=== PATIENT | female | born 1970 | race American Indian/Alaskan Native ===

== ENCOUNTER 2017-03-14 09:40 | Emergency (ER) | payer MEDICARE, OTHER ==
[2017-03-14 09:43] VITALS: BMI 46.3
[2017-03-14 09:44] VITALS: TEMP 97.8
--- NOTE | 2017-03-14 10:04 | C.PDOC ---
History Of Present Illness 46 y/o F c PMHx asthma, migraines, epilepsy, chronic L knee pain on morphine at home p/w back pain x 2 days. Pain is L lower back, sharp, severe, worse with movement or palpation, shoots down L leg with paresthesias. Denies history of sciatica in the past but has known herniated discs secondary to injury years ago. Denies recent injury or trauma, fever, procedures, recent surgery, urinary retention, urinary incontinence, bowel incontinence, motor weakness, or loss of sensation. Time Seen by Provider: 03/14/17 10:00 Chief Complaint (Nursing): Back Pain History Per: Patient History/Exam Limitations: no limitations Onset/Duration Of Symptoms: Days (2) Current Symptoms Are (Timing): Still Present Quality Of Discomfort: Sharp Past Medical History Reviewed: Historical Data, Nursing Documentation, Vital Signs Vital Signs: Last Vital Signs Temp 97.8 F 03/14/17 09:43 Pulse 64 03/14/17 09:43 Resp 20 03/14/17 09:43 BP 146/96 H 03/14/17 09:43 Pulse Ox 100 03/14/17 10:20 - Medical History PMH: Arthritis (LEFT KNEE), Asthma, Fractures (RT.WRIST/ CASTED), Gall Bladder Disease, Migraine, Seizures, Sleep Apnea (USES AT NIGHT) Surgical History: Cholecystectomy, Endoscopy - [facility] Procedures EXCISION OF STOMACH, PERCUTANEOUS ENDOSCOPIC APPROACH, VERT (01/04/16) INSPECTION OF UPPER INTESTINAL TRACT, ENDO (01/04/16) Family History: States: No Known Family Hx - Social History Hx Tobacco Use: No Hx Alcohol Use: No Hx Substance Use: No - Immunization History Hx Tetanus Toxoid Vaccination: No Hx Influenza Vaccination: Yes Hx Pneumococcal Vaccination: No Review Of Systems Except As Marked, All Systems Reviewed And Found Negative. Constitutional: Negative for: Fever Gastrointestinal: Negative for: Vomiting Physical Exam - Physical Exam Additional Physical Exam Comments: Appears: Uncomfortable. Non-toxic. Obese. Skin: Normal Color Head: Atraumatic, Normacephalic Neck: No Midline Cervical Tenderness, Supple Chest: No Deformity, No Tenderness Respiratory: No Accessory Muscle Use Gastrointestinal/Abdominal: Soft, No Tenderness Back: No midline tenderness. + Left paralumbar tenderness. Extremity: Full ROM. No tenderness. No swelling. Sensations to light touch intact in lower legs and saddle area. Motor intact in bilateral legs. Pulses: Left Radial: Normal, Right Radial: Normal Neurological/Psych: Alert. Oriented. Normal Sensation. ED Course And Treatment O2 Sat by Pulse Oximetry: 100 (RA) Pulse Ox Interpretation: Normal Medical Decision Making Medical Decision Making: PLAN: * Flexeril PO * Toradol IM Patient feels much better and wishes to go home. F/u with Dr. Brown, return to ED for any urinary or bowel changes, weakness, or any other problem. Disposition - Disposition Referrals: Vasquez Brown MD [Staff Provider] - Disposition: HOME/ ROUTINE Disposition Time: 10:43 Condition: STABLE Prescriptions: Cyclobenzaprine [Cyclobenzaprine HCl] 10 mg PO Q8H #12 tab Famotidine [Pepcid] 1 tab PO BID #14 tab Ibuprofen [Motrin] 600 mg PO Q6 #25 tab Instructions: Sciatica (ED) Forms: [employer] ([place]) - Clinical Impression Clinical Impression: Low back pain - Scribe Statement The provider has reviewed the documentation as recorded by the Marianibe Tati Beaulieu Provider Attestation: All medical record entries made by the Scribe were at my direction and personally dictated by me. I have reviewed the chart and agree that the record accurately reflects my personal performance of the history, physical exam, medical decision making, and the department course for this patient. I have also personally directed, reviewed, and agree with the discharge instructions and disposition.
[2017-03-14 10:51] VITALS: BP 138/78; PULSE 68; RESP 18; O2SAT 97
== END 2017-03-14 10:52 | disposition home or self-care (01) ==
LOC: C.ER 09:40
DX: M54.5 Low back pain (principal)
CPT/HCPCS: 96372; 99283; J1885

== ENCOUNTER 2017-04-04 06:22 | Day surgery (SDC) | payer MEDICARE, OTHER ==
[2017-04-04] MEDS ORDERED: Lactated Ringer's 1,000 ML IV ONE ×3 (08:19→12:21)
[2017-04-04] MEDS: ceFAZolin IV 2 gm in Dextrose 1 GM/50 ML BAG IVPB ONE ×2 (08:19→09:55)
[2017-04-04] MEDS ORDERED: Propofol 10 mg/ml Inj (20 ML) ONE (09:19)
[2017-04-04] MEDS ORDERED: Midazolam 2 MG/2 ML VIAL ONE ×2 (09:19→11:42)
[2017-04-04] MEDS ORDERED: Rocuronium 10 mg/ml (10 ml) ONE (09:29)
[2017-04-04] MEDS ORDERED: Neostigmine Methylsulfate 3mg/3ml Syringe IV ONE (10:57)
[2017-04-04] MEDS ORDERED: HYDROmorphone 0.5 mg/0.5 ml ISec ONE (11:31)
[2017-04-04] MEDS ORDERED: Lactated Ringer's 1,000 ML IV SCH (11:45)
[2017-04-04] MEDS ORDERED: Bupivacaine HCl 0.5% PF (10 ml) Inj ONE (12:01)
[2017-04-04] MEDS ORDERED: Dexamethasone 4 mg/1 ml ONE (12:02)
[2017-04-04] MEDS: HYDROmorphone 0.5 mg/0.5 ml ISec IVP PRN ×4 (12:09→13:32)
--- NOTE | 2017-04-04 12:28 | PCM.ANESB7 ---
Adductor Canal Block - Adductor Canal Block Date of Procedure: 04/04/17 Anesthiologist: Dewayne Pre-Procedure Diagnosis: Left knee meniscal tear Post-Procedure Diagnosis: Left knee meniscal tear Procedure Performed: Adductor Canal Block Left - Procedure Adductor Canal Block: The procedure was explained to the patient that it is for the post-operative pain management. Consent was obtained after a thorough discussion with the patient regarding the benefits and possible complications of local anesthetic adductor canal block of the femoral nerve. Standard monitors, as defined by the ASA, were applied to the patient. Time-out was held with the circulating nurse to confirm the appropriate block. After applying supplemental oxygen and administering IV Sedation as needed, the patient was placed in supine position with and the operative leg was flexed slightly at the knee and externally rotated as needed, and was kept anatomically stable. The mid-thigh of the left lower extremity was exposed. The ultrasound transducer was then applied transversely along the medial aspect, about midway down the thigh and the femoral artery and vein were identified in appropriate relation with the sartorius muscle. At this time, the femoral nerve was visualized lateral to the femoral artery within the canal. After thorough identification, this area area was prepped with Chloroprep solution three times and 1 % Lidocaine was injected subcutaneously for topical anesthesia. At this point, a #22 gauge Stimuplex 4-inch needle was inserted in-plane in a [id number] orientation, and advanced toward the femoral nerve. Advancement was performed carefully under direct ultrasound visualization. After negative aspiration, 20 cc of 0.5% bupivicaine was injected.. Under ultrasound guidance the local anesthetics were observed spreading around the femoral nerve. The needle was removed intact and sterile dressing was applied. The patient had stable vital signs, was conscious and in no apparent distress. The patient tolerated the femoral nerve block well with stable vital signs and was prepared for subsequent surgery
[2017-04-04 14:08] VITALS: O2SAT 96
[2017-04-04 14:23] VITALS: RESP 18
[2017-04-04 16:02] VITALS: BP 132/70; PULSE 88; TEMP 97.8
--- NOTE | 2017-04-16 19:00 | PCM.SURG1 ---
Surgeon's Initial Post Op Note - Surgeon's Notes Surgeon: Vasquez Mcpherson MD Instructional Paraprofessional: Madelaine Gutierres PA-C Type of Anesthesia: General Endo, Block [facility] Pre-Operative Diagnosis: Left knee #1 MMT. #2 early DJD/ chondromalacia. #3 LMT. #4 synovitis. #5 plica Operative Findings: Left knee #1 MMT (complex/ not repairable/ entire MM involved). #2 early DJD/ chondromalacia (medial compartment/ PF). #3 LMT ( complex white-white zone). #4 synovitis. #5 plica Post-Operative Diagnosis: Left knee #1 MMT (complex/ not repairable/ entire MM involved). #2 early DJD/ chondromalacia (medial compartment/ PF). #3 LMT ( complex white-white zone). #4 synovitis. #5 plica Operation Performed: Left knee Arthroscopic : #1 partial medial menisectomy. # 2 partial lateral menisectomy. #3 chondroplasty. #4 synovectomy and resection plica Specimen/Specimens Removed: specimen= none. complications= none. tourniquet time= 0min. implants= none Estimated Blood Loss: EBL {In ML}: 3 Blood Products Given: N/A Drains Used: No Drains Post-Op Condition: Good Date of Surgery/Procedure: 04/04/17 Time of Surgery/Procedure: 11:00
--- NOTE | 2017-05-12 04:24 | OP ---
PROCEDURE DATE: 04/04/2017 PREOPERATIVE DIAGNOSES: Left knee; 1. Complex medial meniscal tear. 2. Medial compartment early degenerative joint disease/chondromalacia. 3. Patellofemoral chondromalacia. 4. Lateral meniscus tear. 5. Synovitis. 6. Symptomatic medial plica band. POSTOPERATIVE DIAGNOSES: Left knee; 1. Complex medial meniscal tear. 2. Medial compartment early degenerative joint disease/chondromalacia. 3. Patellofemoral chondromalacia. 4. Lateral meniscus tear. 5. Synovitis. 6. Symptomatic medial plica band. PROCEDURES: Left knee arthroscopic; 1. Partial medial meniscectomy. 2. Partial lateral meniscectomy. 3. Chondroplasty of medial compartment and patellofemoral compartment. 4. Extensive synovectomy and resection of symptomatic plica band. 5. PRP injection. SURGEON: Vasquez Mcpherson MD LICENSED PHYSICAL THERAPIST: Keisha Gutierres PA-C JUSTIFICATION FOR LICENSED PHYSICAL THERAPIST: Keisha Gutierres is a certified physician financial planning assistant, whose skilled surgical service was an absolute necessity for successful completion of the procedure. ANESTHESIA: General endotracheal anesthesia with a postop regional nerve block placed by anesthesia staff in PACU. SPECIMEN: None. COMPLICATIONS: None. TOURNIQUET TIME: 0 minutes. IMPLANTS: None. ESTIMATED BLOOD LOSS: 3 mL. DRAINS: None. DISPOSITION: The patient was extubated and transferred to PACU in stable condition having tolerated the procedure well. INDICATIONS FOR SURGERY: The patient is a 46-year-old female with a past medical history significant for obesity, seizure disorder, sleep apnea, GERD, asthma, hypertension, who presented to the office at [facility] for the first time under my care on 05/16/2015 with left greater than right knee pain for some time. We started conservative treatment under my care including multiple cortisone mixture injections and hyaluronic acid injection series twice, over the past 2 years. She underwent multiple rounds of physical therapy, NSAID use, compound antiinflammatory pain cream use, physical therapy and bracing over the past 2 years with no improvement in her left knee pain. Each cortisone mixture injection and hyaluronic series injections would provide temporary pain relief that lasted a couple of weeks at best. She has significant negative impact on her quality of life. X-rays in the office did show early evidence of DJD in this 46-year-old female, who is markedly obese. We had multiple discussions about undergoing surgical treatment in the form of a total knee replacement versus arthroscopic debridement. The patient stated that her knee pain was the reason to her sedentary lifestyle and that she was not able to attempt to lose weight due to her knee pain. With her young age of 46 and truly evidence of DJD in one compartment being her medial compartment, we decided to proceed with an attempt at arthroscopic surgery to provide her with at least temporary pain relief to allow her to achieve a more active lifestyle and attempt to lose some weight. Latest MRI of her left knee was done at [facility], open MRI on 03/06/2017 and read as; 1. Complex tear of body and posterior horn of medial meniscus, extending into the posterior root. 2. Complete tear of the ACL. 3. Grade 1 MCL sprain. 4. Tendinosis of patellar tendon. 5. Progressive medial compartment cartilage loss and showing narrowing with subchondral edema. 6. Large joint effusion with large popliteal cyst. She watched surgical animation videos and diagnoses animation videos and stated she had a good understanding of her diagnosis and the procedure to be done. She was indicated for left knee arthroscopic partial medial meniscectomy, partial lateral meniscectomy, chondroplasty, and extensive debridement/synovectomy. The risks, benefits, and alternatives of the procedure were discussed at length with the patient with the risks including not limited to infection, neurovascular damage, need for further surgery, failure of surgery, need for conversion to a total knee replacement or partial knee replacement, development of blood clots including DVT and PE, development of chronic pain and disability, chondrolysis and advanced degenerative wear. After answering all of her questions, she stated that she understood the risks and wished to proceed with surgery. She was referred to her primary care physician, Dr. Lamb, for preoperative medical evaluation and PATs, and the procedure was scheduled. Once again, the patient has a good understanding that she does have enough DJD at this point in time to warrant at least an unicompartmental knee replacement; but due to her advanced obesity, undergoing an unicompartmental knee arthroplasty is a risk to have advanced wear, as well as undergoing a total knee replacement. We discussed also undergoing possible evaluation for revision gastric sleeve or gastric bypass. At this point in time, the goal is to provide her with at least temporary pain relief, so that she can regain a more active lifestyle and successfully lose weight. Once she obtained medical clearance, the procedure was scheduled at [facility] on 04/04/2017. PROCEDURE IN DETAIL: The patient was identified in the preoperative holding area and the left knee was marked for surgery. Once again, as described above, the risks, benefits, and alternatives of the procedure were discussed at length with the patient and an informed consent was obtained. After a brief discussion with anesthesia staff, perioperative IV antibiotics in the form of 2 g of Ancef was administered. The patient was taken to the operating room, placed on a well-padded operating room table with all bony prominences, superficial neurovascular structures well-padded. The patient was placed under general anesthesia without any difficulty or complication. An examination under anesthesia was then carried out. EXAMINATION UNDER ANESTHESIA: Left knee with full range of motion compared to contralateral knee with no flexion contracture. No warmth, no swelling, no erythema. Skin is intact. Mild ACL instability with 1 to 2+ anterior drawer with a firm endpoint, 1 to 2+ Galilea with a firm endpoint, 1+ Pivot shift, negative posterior drawer, negative reverse Galilea, negative reverse Pivot shift, negative opening to medial or lateral joint lines at 0 and 30 degrees with varus or valgus stress, patella with significant crepitus throughout range of motion and a reproducible significant pop/click, engaging the inferior medial aspect of the patella at 30 degrees flexion throughout arc of range of motion. CONTINUATION OF PROCEDURE: The left lower extremity was prepped and draped in a standard sterile fashion after a tourniquet placed high on the left thigh, but never inflated. A final time-out was done with the surgeon, anesthesia staff and OR staff, and all were in agreement with the patient, procedure to be done, and extremity to be operated on. A 50 mL normal saline was used to insufflate the knee joint. Anterolateral portal was created with stab incision just came down subcutaneous tissue down to the level of capsule. Arthroscopic camera and blunt trocar were inserted into the suprapatellar pouch. Insufflation with arthroscopic fluid was begun. With the use of spinal needle localization, anteromedial portal was ideally localized and created with stab incision through skin down to subcutaneous tissue down to the level of capsule. An accessory cannula was inserted to copiously irrigate the knee joint for better visualization and removal of synovial debris. With the use of the arthroscopic probe, a diagnostic arthroscopy was then carried out. DIAGNOSTIC ARTHROSCOPY: Attention was first turned towards the suprapatellar pouch, where there was no evidence of adhesions or loose bodies. Attention was then turned towards the patellofemoral joint, where immediately seen was grade 2-3 chondromalacia of both the patella and the trochlea with significant hypertrophic synovium imposed between the patellofemoral joint as well as a thickened hypertrophic medial synovial band, extending from the inferomedial aspect of the patella to the medial retinaculum. Attention was then turned towards the medial gutter with a medial symptomatic band was seen once again. Attention was then turned towards the medial compartment, where immediately seen was a global grade 2-3 chondromalacia with an area of full-thickness cartilage loss down to subchondral bone at the weightbearing aspect of the medial aspect of the medial femoral condyle and the medial aspect of the medial tibial plateau articular surface that was large, measuring approximately 6 x 20 mm in length on the medial femoral condyle and 6 mm in width x 15 mm in length from anterior to posterior on the tibial plateau. The medial meniscus exhibited complex tearing with an anterior flap component that consisted of almost the entire medial meniscus that was deemed irreparable. Attention was then turned towards the notch whether there was osteophyte formation and impingement on the PCL with a complete ACL tear and remnant fibers scarred down to the PCL as well, providing the clinical stability that was noted. Throughout the anterior compartment, there was significant hypertrophic synovium and synovitis. Attention was then turned towards the lateral compartment, where there was significant improvement in overall quality of cartilage, as there was only grade 1 chondromalacia at the most between the lateral femoral condyle and the lateral tibial plateau. The lateral meniscus exhibited modest degenerative complex tearing of the white-white zone that was minor. CONTINUATION OF SURGICAL TREATMENT: With the use of arthroscopic shaver and radiofrequency ablation, an extensive synovectomy was carried out, removing all the hypertrophic synovium and the symptomatic plica band and hypertrophic fat pad while maintaining good hemostasis. Once this was done to satisfaction, attention was then turned towards the lateral compartment, where with the use of meniscal arthroscopic biters, radiofrequency ablation, and arthroscopic shaver, a partial lateral meniscectomy was carried out, resecting approximately 5% to 10% of the meniscus at the white-white zone, establishing a smooth contour of stable lateral meniscus tissue. Once this was done to satisfaction, a smooth contour was established. Attention was then turned towards the medial compartment. With the use of arthroscopic shaver and radiofrequency ablation, a chondroplasty was carried out of the medial femoral condyle and medial tibial plateau, resecting the unstable cartilage fragments. Due to the patient's body habitus and the patient verbally telling me throughout her preop visit that she is unable to do nonweightbearing and that she does not want to undergo microfracture, as she would not be able to tolerate nonweightbearing to the left lower extremity, we decided to proceed with just a chondroplasty and diagnostic imaging of the medial compartment early DJD to establish our long-term plan if the arthroscopic procedure is unsuccessful clinically. With the use of the arthroscopic shaver, radiofrequency ablation, and arthroscopic meniscal biters, a partial medial meniscectomy was carried out in the equivalence of a subtotal medial meniscectomy, removing almost the entire medial meniscus, leaving behind remnant anterior horn that was stable. Once again, this complex tearing involved almost the entire medial meniscus, throughout it substance, sparing only the anterior horn fibers. There was significant flap tearing and degenerative tearing with complex signal all throughout the medial meniscus. Once the partial meniscectomy was carried out to satisfaction, final images were taken of the medial compartment. Attention was then turned towards the patellofemoral compartment, where a chondroplasty of the patella and the trochlea was carried out, removing all the unstable cartilage fragments. With the use of arthroscopic shaver and radiofrequency ablation, the extensive synovectomy was completed while maintaining good hemostasis. Once again, she had significant hypertrophic synovium with synovitis as well as a thickened medial plica band and hypertrophic fat pad, that were all debrided carefully while maintaining good hemostasis. Once all the intraarticular treatments were completed to satisfaction and final arthroscopic images were taken for future treatment planning, all arthroscopic fluid and debris were removed from the knee joints. With the help of the Anesthesia staff, 5 mL of PRP were obtained and injected intraarticularly. Arthroscopic portals were the re-approximated with 2-0 Vicryl suture for deep tissue, followed by 3-0 Monocryl suture for skin. Sterile dressings were applied, followed by a layer of a sterile cast padding from the toes up to the superior thigh, followed by layer of compressive Shine wrap from the toes up to the superior thigh. The patient was then placed in a knee immobilizer and extubated from general anesthesia and transferred to PACU in stable condition having tolerated the procedure well. DISPOSITION: The patient will be discharged to home once she is recovered from anesthesia. We discussed at length DVT prophylaxis both with her and her primary care physician, and we are all in agreement that the patient is safer under formal DVT prophylaxis due to her sedentary lifestyle and significant obesity. She has been started on 40 mg of Lovenox subcutaneous injection once daily, starting postoperative day #1, and arrangements had been made for delivery of the medication. She was given a prescription for Percocet for pain control; there is a question about PERCOCET ALLERGY AND HEADACHE FORMATION; and she has also been given 800 mg ibuprofen to supplement in case she develops the headache. As a backup plan, she has also been given the prescription for hydrocodone if she cannot tolerate Percocet. Once she follows up in the office, we will sort out her pain medication usage and make sure that she only has one active prescription for pain medication to get her through her postoperative recovery. She will start physical therapy on postoperative day #2. She will be weightbearing as tolerated to the left lower extremity with the knee immobilizer on. She has been instructed to remove the knee immobilizer and work on range of motion, preliminarily on her own over the weekend. She was instructed to keep the dressings clean, dry, and intact until she follows up in the office. We were unable to obtain a custom hinged knee brace for her through Medicare, and we will continue to work on obtaining authorization, as the [id number] braces do not fit her. Vasquez Mcpherson MD
== END 2017-04-04 16:15 | disposition home or self-care (01) ==
LOC: C.SDS 06:22
PROVIDERS: ATTEND Student in an Organized Health Care Education/Training Program
DX: S83.232D Complex tear of medial meniscus, current injury, left knee, subsequent encounter (principal); S83.272D Complex tear of lateral meniscus, current injury, left knee, subsequent encounter; M94.262 Chondromalacia, left knee; M65.9 Synovitis and tenosynovitis, unspecified
CPT/HCPCS: 29875; 29880; J0171; J0690; J1170; J2001; J2250; J2704; J2710; J3010; J7120

== ENCOUNTER 2017-08-19 12:11 | Emergency (ER) | payer MEDICARE, OTHER ==
[2017-08-19 12:11] VITALS: BMI 46.3
[2017-08-19 12:42] VITALS: RESP 18
[2017-08-19] MEDS ORDERED: Sodium Chloride 0.9% 1,000 ML IV ONE (13:51)
--- NOTE | 2017-08-19 14:35 | C.PDOC ---
History Of Present Illness 47 year old female, whose PMHx includes Migraines and narcolepsy, presents to the ED for evaluation of elevated blood pressure after being referred by her PMD. Patient states she has been experiencing an intermittent headache for the past three days and has been increasingly drowsy. She took one pill of Imitrex without relief, and reports nausea and one episode of vomiting and blurred vision. She denies fever, chills, glasses/contact use or known PMHx of HTN. Time Seen by Provider: 08/19/17 13:39 Chief Complaint (Nursing): High Blood Pressure History Per: Patient History/Exam Limitations: no limitations Onset/Duration Of Symptoms: Days (3), Intermittent Episodes Current Symptoms Are (Timing): Still Present Associated Symptoms: Headache Pain Scale Rating Of: 8 Additional History Per: Patient Past Medical History Reviewed: Historical Data, Nursing Documentation, Vital Signs Vital Signs: Last Vital Signs Temp 97.6 F 08/19/17 17:17 Pulse 64 08/19/17 17:17 Resp 18 08/19/17 17:17 BP 136/80 08/19/17 17:17 Pulse Ox 97 08/19/17 18:12 - Medical History PMH: Arthritis (LEFT KNEE), Asthma, Fractures (RT.WRIST/ CASTED), Gall Bladder Disease, Migraine, Seizures (epilepsy last seizure 7 years ago), Sleep Apnea ( USES AT NIGHT) Denies: Chronic Kidney Disease Surgical History: Cholecystectomy, Endoscopy - [facility] Procedures EXCISION OF STOMACH, PERCUTANEOUS ENDOSCOPIC APPROACH, VERT (01/04/16) INSPECTION OF UPPER INTESTINAL TRACT, ENDO (01/04/16) Family History: States: Unknown Family Hx - Social History Hx Tobacco Use: No Hx Alcohol Use: No Hx Substance Use: No - Immunization History Hx Tetanus Toxoid Vaccination: No Hx Influenza Vaccination: Yes Hx Pneumococcal Vaccination: No Review Of Systems Constitutional: Positive for: Other (elevated blood pressure, increased drowsiness ). Negative for: Fever, Chills Eyes: Positive for: Other (double vision ) Gastrointestinal: Positive for: Vomiting Neurological: Positive for: Headache Physical Exam - Physical Exam Appears: Non-toxic, No Acute Distress Skin: Normal Color, Warm, Dry Head: Atraumatic, Normacephalic, No Tenderness, No Swelling Eye(s): bilateral: Normal Inspection, PERRL, EOMI, Other (horizontal nystagmus and photophobia ) Oral Mucosa: Moist Neck: Supple Chest: Symmetrical, No Deformity, No Tenderness Cardiovascular: Rhythm Regular, No Murmur Respiratory: Normal Breath Sounds, No Rales, No Rhonchi, No Wheezing Extremity: Normal ROM, Capillary Refill (less than 2 seconds ) Neurological/Psych: Oriented x3, Normal Speech Gait: Steady ED Course And Treatment - Laboratory Results Result Diagrams: 08/19/17 15:46 O2 Sat by Pulse Oximetry: 97 (on RA ) Pulse Ox Interpretation: Normal - CT Scan/US CT Head Other Rad Studies (CT/US): Interpreted By Me, Read By Radiologist, Radiology Report Reviewed CT/US Interpretation: PROCEDURE: CT HEAD WITHOUT CONTRAST. HISTORY: Headache x3Days w photophobia, vomiting, vision changes. COMPARISON: 11/28/2014. TECHNIQUE: Axial computed tomography images were obtained through the head/ brain without intravenous contrast. Radiation dose: Total exam DLP = 892.53 mGy-cm. This CT exam was performed using one or more of the following dose reduction techniques: Automated exposure control, adjustment of the mA and/or kV according to patient size, and/or use of iterative reconstruction technique. FINDINGS: HEMORRHAGE: No intracranial hemorrhage. BRAIN: There is apparent mild effacement of the cortical sulci. Caballero-white matter differentiation is preserved. There is no mass, mass effect or abnormal extra- axial fluid collection. VENTRICLES: The ventricles are slit-like. CALVARIUM: The skull base and calvarium are normal. PARANASAL SINUSES: Predominantly clear. MASTOID AIR CELLS: Predominantly clear. OTHER FINDINGS: None. IMPRESSION: No acute intracranial abnormality. Apparent mild effacement of cortical sulci with slit-like ventricles in this demographic subset could represent benign intracranial hypertension. If clinically indicated, correlation with MRI of the brain without intravenous contrast may be performed. Medical Decision Making Medical Decision Making: Impression: 47 year old female with elevated blood pressure, headache Plan: * Bloodwork * urinalysis * CT Head * Reglan IV * IV Fluids * reassess and disposition Progress: Bloodwork, urinalysis, CT Head ordered and reviewed. Reglan IV and IV Fluids administered. PO meds ordered, IV line infiltrated. Other attempts made, patient is hard stick and refusing line. CT reviewed, no intracranial hemorrhage. [address] Clarisse Lamb to discuss CT results. She agrees as long as patient is feeling better, MRI is not emergent and she can follow up with her neurologist Dr Kimble outpatient. 1700 Patient re-evaluated and is sitting comfortably in chair talking on the phone. She reports feeling better. Vital signs stable and no neuro deficits. Explained results to patient and provided copy of CT report. Patient instructed to follow up with Dr Kimble Disposition Counseled Patient/Family Regarding: Diagnosis, Need For Followup, Rx Given - Disposition Referrals: Clarisse Lamb MD [Staff Provider] - Hilario Kimble MD [Staff Provider] - Disposition: HOME/ ROUTINE Disposition Time: 17:02 Condition: IMPROVED Additional Instructions: Follow up with your primary medical doctor and neurologist for further evaluation. Take medications as needed. May need outpatient MRI. Return to the emergency department at any time if symptoms persist or worsen Prescriptions: Acetaminophen/Butalbital/Caf [Fioricet] 1 tab PO TID PRN #20 tab PRN Reason: Headache Metoclopramide [Reglan] 1 tab PO TID PRN #25 tab PRN Reason: Nausea/Vomiting Instructions: Migraine Headaches in Adults Forms: [employer] (Slovenian) - POA Present On Arrival: None - Clinical Impression Clinical Impression: Migraine - PA / CARRIAGE DOGGER / Resident Statement MD/DO has reviewed & agrees with the documentation as recorded. - Scribe Statement The provider has reviewed the documentation as recorded by the Scribe (Fabby Saucedo) All medical record entries made by the Scribe were at my direction and personally dictated by me. I have reviewed the chart and agree that the record accurately reflects my personal performance of the history, physical exam, medical decision making, and the department course for this patient. I have also personally directed, reviewed, and agree with the discharge instructions and disposition.
[2017-08-19 14:55] LABS: HCG,QUALITATIVE URINE NEGATIVE (NEGATIVE)
[2017-08-19 15:11] LABS: SQUAMOUS EPITHIAL 7 /hpf (0-5); URINE BACTERIA RARE (<OCC); URINE BILIRUBIN NEGATIVE (NEGATIVE); URINE BLOOD 1+ (NEGATIVE); URINE CLARITY Hazy (Clear); URINE COLOR Yellow (YELLOW); URINE GLUCOSE (UA) NORMAL (Normal); URINE LEUKOCYTE ESTERASE 2+ Leu/uL (Negative); URINE PROTEIN NEGATIVE (NEGATIVE); URINE UROBILINOGEN NORMAL mg/dL (0.2-1.0)
--- NOTE | 2017-08-19 15:30 | CT ---
PROCEDURE: CT HEAD WITHOUT CONTRAST. HISTORY: Headache x3Days w photophobia, vomiting, vision changes COMPARISON: 11/28/2014. TECHNIQUE: Axial computed tomography images were obtained through the head/brain without intravenous contrast. Radiation dose: Total exam DLP = 892.53 mGy-cm. This CT exam was performed using one or more of the following dose reduction techniques: Automated exposure control, adjustment of the mA and/or kV according to patient size, and/or use of iterative reconstruction technique. FINDINGS: HEMORRHAGE: No intracranial hemorrhage. BRAIN: There is apparent mild effacement of the cortical sulci. Caballero-white matter differentiation is preserved. There is no mass, mass effect or abnormal extra-axial fluid collection. VENTRICLES: The ventricles are slit-like. CALVARIUM: The skull base and calvarium are normal. PARANASAL SINUSES: Predominantly clear. MASTOID AIR CELLS: Predominantly clear. OTHER FINDINGS: None. IMPRESSION: No acute intracranial abnormality. Apparent mild effacement of cortical sulci with slit-like ventricles in this demographic subset could represent benign intracranial hypertension. If clinically indicated, correlation with MRI of the brain without intravenous contrast may be performed.
[2017-08-19] MEDS ORDERED: Sodium Chloride 0.9% 1,000 ML ONE (15:49)
[2017-08-19 15:50] LABS: HEMOGLOBIN 12.9 g/dL (11.0-16.0); MEAN CELL VOLUME 83.8 fL (81.0-99.0); MEAN CORPUSCULAR HGB CONC 32.2 g/dL (33.0-37.0); MEAN PLATELET VOLUME 9.4 fL (7.2-11.7); RBC 4.77 Mil/uL (3.80-5.20); RED CELL DISTRIBUTION WIDTH 15.4 % (11.5-14.5); WHITE BLOOD COUNT 8.7 K/uL (4.8-10.8)
[2017-08-19] MEDS ORDERED: Apap-Butalbital-Caffeine 325-50-40mg Tab PO STA (16:14)
[2017-08-19] MEDS ORDERED: Apap-Butalbital-Caffeine 325-50-40mg Tab ONE (16:25)
[2017-08-19 17:17] VITALS: BP 136/80; PULSE 64; TEMP 97.6
[2017-08-19 18:12] VITALS: O2SAT 97
== END 2017-08-19 17:17 | disposition home or self-care (01) ==
LOC: C.ER 12:11
DX: G43.909 Migraine, unspecified, not intractable, without status migrainosus (principal)

== ENCOUNTER 2017-11-20 14:32 | Emergency (ER) | payer MEDICARE, OTHER ==
[2017-11-20 14:32] VITALS: BMI 46.3
--- NOTE | 2017-11-20 15:23 | C.PDOC ---
History Of Present Illness 47-YEAR-OLD FEMALE, REFERRED PMD DR JAIN FOR R/O L LEG DVT. NEW ONSET PARESTHESIA SOLE OF L FOOT X 2-3 WEEKS, CALF PAIN, INNER KNEE PAIN X 2-3 WEEKS. WORSE W PALPATION. NO ASSOC CP, SOB, MARTINEZ. HO SCIATICA. DENIES HO DM. EXAM NAD NONTOXIC EXT MIN L>R EXT SWELL, +CALF TEND NO PALP CORD ATRAUM SKIN INTACT NO ERYTHEMA, LESIONS NEURO NO GROSS FOCAL DEF REMAINDER NEG Time Seen by Provider: 11/20/17 15:17 Chief Complaint (Nursing): Lower Extremity Problem/Injury Past Medical History Reviewed: Historical Data, Nursing Documentation, Vital Signs Vital Signs: Last Vital Signs Temp 98 F 11/20/17 16:38 Pulse 72 11/20/17 16:38 Resp 18 11/20/17 16:38 BP 137/82 11/20/17 16:38 Pulse Ox 99 11/20/17 16:38 - Medical History PMH: Arthritis (LEFT KNEE), Asthma, Fractures (RT.WRIST/ CASTED), Gall Bladder Disease, Migraine, Seizures (epilepsy last seizure 7 years ago), Sleep Apnea ( USES AT NIGHT) Denies: Chronic Kidney Disease Surgical History: Cholecystectomy, Endoscopy - [facility] Procedures EXCISION OF STOMACH, PERCUTANEOUS ENDOSCOPIC APPROACH, VERT (01/04/16) INSPECTION OF UPPER INTESTINAL TRACT, ENDO (01/04/16) Family History: States: No Known Family Hx - Social History Hx Tobacco Use: No Hx Alcohol Use: No Hx Substance Use: No - Immunization History Hx Tetanus Toxoid Vaccination: No Hx Influenza Vaccination: Yes Hx Pneumococcal Vaccination: No Review Of Systems Constitutional: Negative for: Fever, Chills Cardiovascular: Negative for: Chest Pain, Palpitations, Edema, Light Headedness Respiratory: Negative for: Shortness of Breath Gastrointestinal: Negative for: Nausea, Vomiting Musculoskeletal: Positive for: Leg Pain (knee pain, calf pain) Neurological: Negative for: Weakness, Numbness Physical Exam - Physical Exam Appears: Non-toxic, No Acute Distress Skin: Warm, Dry (NO ERYTHEMA, LESIONS), No Rash Head: Atraumatic Eye(s): bilateral: Normal Inspection Nose: Normal Oral Mucosa: Moist Lips: Normal Appearing Neck: Normal ROM Chest: Symmetrical Cardiovascular: Rhythm Regular, No Murmur Respiratory: Normal Breath Sounds, No Accessory Muscle Use Gastrointestinal/Abdominal: Soft, No Tenderness Extremity: No Deformity, Other (MIN L>R EXT SWELL, +CALF TEND NO PALP CORD ATRAUM) Neurological/Psych: Oriented x3, Normal Speech, Other (NO GROSS FOCAL DEF) ED Course And Treatment O2 Sat by Pulse Oximetry: 100 - CT Scan/US DOPPLER Other Rad Studies (CT/US): Radiology Report Reviewed (NEG) Disposition Counseled Patient/Family Regarding: Studies Performed, Diagnosis, Need For Followup - Disposition Referrals: YOUR,PMD [Other] Disposition: HOME/ ROUTINE Disposition Time: 15:57 Condition: GOOD Additional Instructions: YOUR TEST IS NEGATIVE FOR DVT. FOLLOW UP WITH YOUR PMD. Instructions: Paresthesias (DC) Forms: [employer] (Mauritanian) - Clinical Impression Clinical Impression: Leg pain, Paresthesia - Scribe Statement The provider has reviewed the documentation as recorded by the Scribe (Jarod Clark) All medical record entries made by the Scribe were at my direction and personally dictated by me. I have reviewed the chart and agree that the record accurately reflects my personal performance of the history, physical exam, medical decision making, and the department course for this patient. I have also personally directed, reviewed, and agree with the discharge instructions and disposition.
[2017-11-20 16:39] VITALS: BP 137/82; PULSE 72; RESP 18; TEMP 98
[2017-11-20 17:02] VITALS: O2SAT 100
--- NOTE | 2017-11-21 16:24 | VASCLAB ---
PROCEDURE: Left Lower Extremity Venous Duplex Exam. HISTORY: Swelling PRIORS: None. TECHNIQUE: Left common femoral, femoral, popliteal and posterior tibial, peroneal and great saphenous veins were evaluated. Flow was assessed with color Doppler, compressibility, assessment of phasic flow and augmentation response. Report prepared by MARLON Najera FINDINGS: LEFT: 1. Common Femoral Vein: 1.1. Compressibility - Fully compressible: Thrombus - None : Flow - Phasic: Augmentation -Normal: Reflux - None. 2. Femoral Vein: 2.1. Compressibility - Fully compressible: Thrombus - None: Flow - Phasic: Augmentation -Normal: Reflux - None. 3. Popliteal Vein: 3.1. Compressibility - Fully compressible: Thrombus - None: Flow - Phasic: Augmentation -Normal: Reflux - None. 4. Posterior Tibial Vein: 4.1. Compressibility - Fully compressible: Thrombus - None: Flow - Phasic: Augmentation -Normal: Reflux - None. 5. Peroneal Vein: 5.1. Compressibility - Fully compressible: Thrombus - None: Flow - Phasic: Augmentation -Normal: Reflux - None. 6. Great Saphenous Vein: 6.1. Compressibility - Fully compressible: Thrombus - None: Flow - Phasic: Augmentation - Normal: Reflux - None. OTHER FINDINGS: IMPRESSION: No evidence of deep or superficial vein thrombosis of the left lower extremity with excellent venous flow. Normal valve function noted of the left side. Normal venous flow noted in the right common femoral vein.
== END 2017-11-20 16:38 | disposition home or self-care (01) ==
LOC: C.ER 14:32
DX: R20.2 Paresthesia of skin (principal); M79.605 Pain in left leg; M17.12 Unilateral primary osteoarthritis, left knee

== ENCOUNTER 2017-12-09 16:21 | Inpatient (IN) | payer MEDICARE, OTHER ==
[2017-12-09 16:21] VITALS: BMI 46.3
[2017-12-09 17:12] LABS: BASO # 0.1 K/uL (0.0-0.2); BASO % 0.6 % (0.0-2.0); EOS # 0.2 K/uL (0.0-0.7); EOS % 1.9 % (0.0-4.0); HEMOGLOBIN 12.9 g/dL (11.0-16.0); LYMPH # 2.3 K/uL (1.0-4.3); LYMPH % 28.4 % (20.0-40.0); MEAN CELL VOLUME 83.7 fL (81.0-99.0); MEAN CORPUSCULAR HEMOGLOBIN 26.7 pg (27.0-31.0); MEAN CORPUSCULAR HGB CONC 31.9 g/dL (33.0-37.0); MEAN PLATELET VOLUME 9.1 fL (7.2-11.7); MONO # 0.7 K/uL (0.0-0.8); NEUT # 4.9 K/uL (1.8-7.0); NEUT % 60.1 % (50.0-75.0); NRBC % 0.1 % (0.0-2.0); RBC 4.81 Mil/uL (3.80-5.20); RED CELL DISTRIBUTION WIDTH 14.2 % (11.5-14.5); WHITE BLOOD COUNT 8.2 K/uL (4.8-10.8)
--- NOTE | 2017-12-09 17:26 | C.PDOC ---
History Of Present Illness 47 y/o female, w/PMhx of seizures, brought to ER by ambulance while having an active seizure. Patient states that her last seziure was 10 years ago. Patient reports that she is compliant with her seizure medications and she takes Topamax 100 mg BID. Time Seen by Provider: 12/09/17 16:33 Chief Complaint (Nursing): Seizure History Per: Patient History/Exam Limitations: no limitations Severity: Moderate Past Medical History Reviewed: Historical Data, Nursing Documentation, Vital Signs Vital Signs: Last Vital Signs Temp 98.1 F 12/09/17 16:30 Pulse 79 12/09/17 16:30 Resp 16 12/09/17 16:30 BP 128/74 12/09/17 16:30 Pulse Ox 100 12/09/17 19:02 - Medical History PMH: Arthritis (LEFT KNEE), Asthma, Fractures (RT.WRIST/ CASTED), Gall Bladder Disease, Migraine, Seizures, Sleep Apnea Denies: Chronic Kidney Disease Surgical History: Cholecystectomy, Endoscopy - [facility] Procedures EXCISION OF STOMACH, PERCUTANEOUS ENDOSCOPIC APPROACH, VERT (01/04/16) INSPECTION OF UPPER INTESTINAL TRACT, ENDO (01/04/16) Family History: States: No Known Family Hx - Social History Hx Tobacco Use: No Hx Alcohol Use: No Hx Substance Use: No - Immunization History Hx Tetanus Toxoid Vaccination: Yes Hx Influenza Vaccination: Yes Hx Pneumococcal Vaccination: No Review Of Systems Except As Marked, All Systems Reviewed And Found Negative. Constitutional: Negative for: Fever, Chills Neurological: Positive for: Seizures Physical Exam - Physical Exam Appears: Non-toxic, No Acute Distress Skin: Normal Color, Warm, Dry Head: Atraumatic, Normacephalic Eye(s): bilateral: Normal Inspection Nose: Normal Oral Mucosa: Moist Neck: Supple Chest: Symmetrical Cardiovascular: Rhythm Regular Respiratory: Normal Breath Sounds, No Rales, No Rhonchi, No Wheezing Gastrointestinal/Abdominal: Normal Exam, Soft, No Tenderness, No Guarding, No Rebound Neurological/Psych: Oriented x3, Normal Speech ED Course And Treatment - Laboratory Results Result Diagrams: 12/09/17 17:09 12/09/17 17:09 ECG: Interpreted By Me, Viewed By Me ECG Rhythm: Sinus Rhythm ECG Interpretation: Normal Interpretation Of ECG: NSR with normal intervals, normal axises, and no ST/ T wave abnormalities Rate From EC O2 Sat by Pulse Oximetry: 100 (RA) Pulse Ox Interpretation: Normal - Radiology CXR: Interpreted by Me, Viewed By Me CXR Interpretation: Yes: No Acute Disease - CT Scan/US CT- Head Other Rad Studies (CT/US): Read By Radiologist, Radiology Report Reviewed CT/US Interpretation: Date of service: 12/09/2017. PROCEDURE: CT HEAD WITHOUT CONTRAST. HISTORY: seizure. COMPARISON: CT head dated 08/19/2017. TECHNIQUE: Axial computed tomography images were obtained through the head/ brain without intravenous contrast. Radiation dose: Total exam DLP = 1082.3 mGy-cm. This CT exam was performed using one or more of the following dose reduction techniques: Automated exposure control, adjustment of the mA and/or kV according to patient size, and/or use of iterative reconstruction technique. FINDINGS: HEMORRHAGE: No intracranial hemorrhage. BRAIN: No mass effect or edema. No atrophy or chronic microvascular ischemic changes. VENTRICLES: Unremarkable. No hydrocephalus. CALVARIUM: Unremarkable. PARANASAL SINUSES: Unremarkable as visualized. No significant inflammatory changes. MASTOID AIR CELLS: Stable ground-glass opacity within the left mastoid air cells which may represent inspissated secretion. OTHER FINDINGS: None. IMPRESSION: No acute intracranial pathology. Medical Decision Making Medical Decision Making: Assessment: Seizure Plan: --Labs --UA --EKG --CXR --CT- Head --Ativan IM spoke to mother Nighat - [phone] who states patient had syncope without seizure at home. Will discuss with hospitalist for consideration to tele observation. Case s/o to [facility] at 1900 Dr. farooq would like to increase topamax 10 150 mg po bid Disposition Discussed With : Ingrid Harrell - Disposition Disposition Time: 18:58 Condition: FAIR Forms: [facility] (Tuvaluan) - Clinical Impression Clinical Impression: Syncope - Scribe Statement The provider has reviewed the documentation as recorded by the Monica Frank Provider Attestation: All medical record entries made by the Scribe were at my direction and personally dictated by me. I have reviewed the chart and agree that the record accurately reflects my personal performance of the history, physical exam, medical decision making, and the department course for this patient. I have also personally directed, reviewed, and agree with the discharge instructions and disposition. Physician Patient Turnover Patient Signed Over To: Ingrid Harrell
--- NOTE | 2017-12-09 17:33 | CT ---
Date of service: 12/09/2017 PROCEDURE: CT HEAD WITHOUT CONTRAST. HISTORY: seizure COMPARISON: CT head dated 08/19/2017 TECHNIQUE: Axial computed tomography images were obtained through the head/brain without intravenous contrast. Radiation dose: Total exam DLP = 1082.3 mGy-cm. This CT exam was performed using one or more of the following dose reduction techniques: Automated exposure control, adjustment of the mA and/or kV according to patient size, and/or use of iterative reconstruction technique. FINDINGS: HEMORRHAGE: No intracranial hemorrhage. BRAIN: No mass effect or edema. No atrophy or chronic microvascular ischemic changes. VENTRICLES: Unremarkable. No hydrocephalus. CALVARIUM: Unremarkable. PARANASAL SINUSES: Unremarkable as visualized. No significant inflammatory changes. MASTOID AIR CELLS: Stable ground-glass opacity within the left mastoid air cells which may represent inspissated secretion. OTHER FINDINGS: None. IMPRESSION: No acute intracranial pathology.
[2017-12-09 17:39] LABS: ALB/GLOB RATIO 1.1 (1.0-2.1); ALBUMIN 4.2 g/dL (3.5-5.0); ALT/SGPT 18 U/L (9-52); AST/SGOT 21 U/L (14-36); BLOOD UREA NITROGEN 6 mg/dL (7-17); CALCIUM 9.4 mg/dl (8.6-10.4); GFR AFRICAN-AMERICAN > 60; GFR NON-AFRICAN AMERICAN > 60
--- NOTE | 2017-12-09 17:55 | RAD ---
Date of service: 12/09/2017 PROCEDURE: CHEST RADIOGRAPH, 1 VIEW HISTORY: Seizure COMPARISON: Chest radiograph dated 04/01/2017 FINDINGS: LUNGS: Clear. PLEURA: No pneumothorax or pleural fluid seen. CARDIOVASCULAR: Normal. OSSEOUS STRUCTURES: No significant abnormalities. VISUALIZED UPPER ABDOMEN: Normal. OTHER FINDINGS: None. IMPRESSION: No active disease.
[2017-12-09 18:39] LABS: SQUAMOUS EPITHIAL 4 /hpf (0-5); URINE BACTERIA RARE (<OCC); URINE BILIRUBIN NEGATIVE (NEGATIVE); URINE BLOOD NEGATIVE (NEGATIVE); URINE CLARITY Hazy (Clear); URINE COLOR Yellow (YELLOW); URINE GLUCOSE (UA) NORMAL (Normal); URINE LEUKOCYTE ESTERASE NEG Leu/uL (Negative); URINE PROTEIN NEGATIVE (NEGATIVE); URINE UROBILINOGEN NORMAL mg/dL (0.2-1.0)
[2017-12-09 18:48] LABS: BARBITURATES, UR NEGATIVE (NEGATIVE); BENZODIAZEPINES, UR NEGATIVE (NEGATIVE); OPIATES, UR NEGATIVE (NEGATIVE); PHENCYCLIDINE, UR NEGATIVE (NEGATIVE)
--- NOTE | 2017-12-09 22:04 | CP.PCM.HP ---
<Magaly Kimball. - Last Filed: 12/09/17 23:13> History of Present Illness - History of Present Illness History of Present Illness: HPI: Patient is a 47 year old female with a history of seizures, migraines, sleep apnea, arthritis, HTN, and asthma, who presents to the ED with complaints of near syncope, weakness, headache, dizziness, and diaphoresis. The patient woke up at 6am, took her medications with orange juice, then walked downstairs around 6:45am to greet her niece. When the patient arrived downstairs, she felt weak, diaphoretic, dizzy, had blurry vision, and felt as though she was going to pass out. She proceeded to slowly fall to the ground. She denies falling, hitting her head, or any other part of her body. Her niece helped her back to bed, she slept until noon. When she got out of bed to go to the restroom at noon , she had the same symptoms and "sank to the floor" (did not fall or pass out). She decided to come to the hospital because "she just didn't feel right". Patient denies seizures at home. Last seizure was in 2008. Per the nurse, when she arrived at the ED, patient was actively seizing "patient was not responsive , arms and hands were contracted and crossed, and patient was shaking". Per the nurse, the episode lasted approximately 2 minutes, followed by confusion and lethargy. The patient currently complaints of weakness, fatigue, and a mild headache. Patient denies chest pain, palpitations, dyspnea, cough, abdominal pain, nausea, vomiting, fevers, diarrhea, constipation, blood stools, dysuria, hematuria, tongue biting, trauma, skin changes. Of note, patient was recently diagnosed with HTN in September and started Amlodipine, was recent prescribed Percocet 1 month ago for pain, and her topimax was decreased 2-3 weeks ago. PMD: Dr. Clarisse Lamb PMHx: seizures, migraines, sleep apnea, arthritis, HTN, and asthma SurgHx: Cholecystectomy 2001; Left knee surgery w/Dr. Brown 04/2017; Bariatric surgery 2015. FamHx: Sister- OR (); Sister- Breast cancer, asthma (); Brother- Meningitis (), Brother- Cirrhosis () SocHx: Denies tobacco, alcohol, and drug use; lives with two children in [facility] unemployed (disability) Allergies: NKDA Medications: Amlodipine 5mg PO, Ranitidine 15mg PO, Indomethacin 25mg, Acetazolaminde ER 500mg, Topiramate 100mg PO TID, Cyclobenzaprine 10mg, Meloxicam !5mg, Percocet Q6-8h prn, Dexilant 60mg, Vitamin B12, Multivitamins, Lidocaine ointment Present on Admission - Present on Admission Any Indicators Present on Admission: No Review of Systems - Constitutional Constitutional: Fatigue, Headache, Lethargy, Weakness. absent: Chills, Fever - EENT Eyes: Blurred Vision, Floaters. absent: Change in Vision Ears: Dizziness. absent: Abnormal Hearing Nose/Mouth/Throat: absent: Dysphagia, Sore Throat - Cardiovascular Cardiovascular: Lightheadedness. absent: Chest Pain, Dyspnea, Edema, Leg Edema , Palpitations, Rapid Heart Rate - Respiratory Respiratory: absent: Cough, Dyspnea - Gastrointestinal Gastrointestinal: absent: Abdominal Pain, Constipation, Diarrhea, Hematemesis, Hematochezia, Nausea, Vomiting - Genitourinary Genitourinary: absent: Change in Urinary Stream, Dysuria, Hematuria, Urinary Frequency - Musculoskeletal Musculoskeletal: absent: Numbness, Tingling - Integumentary Integumentary: absent: New Lesions, Rash - Neurological Neurological: Dizziness, Headaches, Syncope (near), Weakness. absent: Numbness , Tingling, Vertigo - Endocrine Endocrine: Fatigue, Flushing. absent: Palpitations - Hematologic/Lymphatic Hematologic: absent: Easy Bleeding, Easy Bruising Past Patient History - Infectious Disease Hx of Infectious Diseases: None - Past Medical History & Family History Past Medical History?: Yes - Past Social History Smoking Status: Never Smoked - CARDIAC Hx Cardiac Disorders: No - PULMONARY Hx Asthma: Yes Hx Sleep Apnea: Yes - NEUROLOGICAL Hx Migraine: Yes Hx Seizures: Yes - HEENT Other/Comment: SLEEPAPNEA & NARCOLEPSY - RENAL Hx Chronic Kidney Disease: No - ENDOCRINE/METABOLIC Hx Endocrine Disorders: No - HEMATOLOGICAL/ONCOLOGICAL Hx Blood Disorders: No - INTEGUMENTARY Hx Dermatological Problems: Yes Hx Eczema: Yes - MUSCULOSKELETAL/RHEUMATOLOGICAL Hx Arthritis: Yes (LEFT KNEE) Hx Fractures: Yes (RT.WRIST/ CASTED) - GASTROINTESTINAL Hx Gall Bladder Disease: Yes - GENITOURINARY/GYNECOLOGICAL Hx Genitourinary Disorders: No - PSYCHIATRIC Hx Substance Use: No - SURGICAL HISTORY Hx Cholecystectomy: Yes - ANESTHESIA Hx Anesthesia: Yes Hx Anesthesia Reactions: Yes (Nausea) Hx Malignant Hyperthermia: No Meds Allergies/Adverse Reactions: Allergies Allergy/AdvReac Type Severity Reaction Status Date / Time No Known Allergies Allergy Verified 12/09/17 16:35 Physical Exam - Constitutional Appears: No Acute Distress - Head Exam Head Exam: ATRAUMATIC, NORMAL INSPECTION, NORMOCEPHALIC - Eye Exam Eye Exam: EOMI, Normal appearance, PERRL. absent: Nystagmus, Scleral icterus - ENT Exam ENT Exam: Mucous Membranes Moist, Normal Exam (no tongue abrasions/lacerations) - Neck Exam Neck exam: Positive for: Full Rom. Negative for: Lymphadenopathy - Respiratory Exam Respiratory Exam: Clear to Auscultation Bilateral, NORMAL BREATHING PATTERN. absent: Rales, Rhonchi, Wheezes, Respiratory Distress - Cardiovascular Exam Cardiovascular Exam: REGULAR RHYTHM, +S1, +S2. absent: Irregular Rhythm, Systolic Murmur - GI/Abdominal Exam GI & Abdominal Exam: Normal Bowel Sounds, Soft. absent: Distended, Firm, Guarding, Mass, Tenderness Additional comments: Obese - Extremities Exam Extremities exam: Positive for: full ROM, normal capillary refill, pedal pulses present. Negative for: pedal edema, tenderness Additional comments: left foot- humble placed by amusement machine mechanic for spurs. - Back Exam Back exam: NORMAL INSPECTION - Neurological Exam Neurological exam: Alert, CN II-XII Intact, Oriented x3 - Psychiatric Exam Psychiatric exam: Normal Affect, Normal Mood - Skin Skin Exam: Dry, Intact, Normal Color, Warm Additional comments: no abrasions, lacerations, ecchymosis noted Results - Vital Signs Recent Vital Signs: Last Vital Signs Temp 98.1 F 12/09/17 16:30 Pulse 71 12/09/17 21:42 Resp 19 12/09/17 21:42 BP 122/64 12/09/17 21:42 Pulse Ox 98 12/09/17 21:42 - Labs Result Diagrams: 12/09/17 17:09 12/09/17 17:09 Labs: Laboratory Results - last 24 hr 12/09/17 12/09/17 12/09/17 16:30 17:09 17:09 WBC 8.2 RBC 4.81 Hgb 12.9 Hct 40.3 MCV 83.7 MCH 26.7 L MCHC 31.9 L RDW 14.2 Plt Count 264 MPV 9.1 Neut % (Auto) 60.1 Lymph % (Auto) 28.4 [place] % (Auto) 9.0 Eos % (Auto) 1.9 Baso % (Auto) 0.6 Neut # (Auto) 4.9 Lymph # (Auto) 2.3 [place] # (Auto) 0.7 Eos # (Auto) 0.2 Baso # (Auto) 0.1 Sodium 143 Potassium 3.9 Chloride 107 Carbon Dioxide 23 Anion Gap 16 BUN 6 L Creatinine 0.7 Est GFR ( Amer) > 60 Est GFR (Non-Af Amer) > 60 POC Glucose (mg/dL) 82 Random Glucose 93 Calcium 9.4 Total Bilirubin 0.4 AST 21 ALT 18 Alkaline Phosphatase 56 Total Creatine Kinase 146 H Troponin I < 0.0120 Total Protein 8.1 Albumin 4.2 Globulin 3.8 Albumin/Globulin Ratio 1.1 Prolactin Urine Color Urine Clarity Urine pH Ur Specific [place] Urine Protein Urine Glucose (UA) Urine Ketones Urine Blood Urine Nitrate Urine Bilirubin Urine Urobilinogen Ur Leukocyte Esterase Urine WBC (Auto) Urine RBC (Auto) Ur Squamous Epith Cells Urine Bacteria Urine HCG, Qual Urine Opiates Screen Urine Methadone Screen Ur Barbiturates Screen Ur Phencyclidine Scrn Ur Amphetamines Screen U Benzodiazepines Scrn U Oth Cocaine Metabols U Cannabinoids Screen Alcohol, Quantitative < 10 12/09/17 12/09/17 12/09/17 18:20 18:20 18:22 WBC RBC Hgb Hct MCV MCH MCHC RDW Plt Count MPV Neut % (Auto) Lymph % (Auto) [place] % (Auto) Eos % (Auto) Baso % (Auto) Neut # (Auto) Lymph # (Auto) [place] # (Auto) Eos # (Auto) Baso # (Auto) Sodium Potassium Chloride Carbon Dioxide Anion Gap BUN Creatinine Est GFR ( Amer) Est GFR (Non-Af Amer) POC Glucose (mg/dL) Random Glucose Calcium Total Bilirubin AST ALT Alkaline Phosphatase Total Creatine Kinase Troponin I Total Protein Albumin Globulin Albumin/Globulin Ratio Prolactin Urine Color Yellow Urine Clarity Hazy Urine pH 8.0 Ur Specific [place] 1.012 Urine Protein Negative Urine Glucose (UA) Normal Urine Ketones Negative Urine Blood Negative Urine Nitrate Negative Urine Bilirubin Negative Urine Urobilinogen Normal Ur Leukocyte Esterase Neg Urine WBC (Auto) 3 Urine RBC (Auto) 1 Ur Squamous Epith Cells 4 Urine Bacteria Rare Urine HCG, Qual Negative Urine Opiates Screen Negative Urine Methadone Screen Negative Ur Barbiturates Screen Negative Ur Phencyclidine Scrn Negative Ur Amphetamines Screen Negative U Benzodiazepines Scrn Negative U Oth Cocaine Metabols Negative U Cannabinoids Screen Negative Alcohol, Quantitative 12/09/17 19:39 WBC RBC Hgb Hct MCV MCH MCHC RDW Plt Count MPV Neut % (Auto) Lymph % (Auto) [place] % (Auto) Eos % (Auto) Baso % (Auto) Neut # (Auto) Lymph # (Auto) [place] # (Auto) Eos # (Auto) Baso # (Auto) Sodium Potassium Chloride Carbon Dioxide Anion Gap BUN Creatinine Est GFR ( Amer) Est GFR (Non-Af Amer) POC Glucose (mg/dL) Random Glucose Calcium Total Bilirubin AST ALT Alkaline Phosphatase Total Creatine Kinase Troponin I Total Protein Albumin Globulin Albumin/Globulin Ratio Prolactin 25.5 H Urine Color Urine Clarity Urine pH Ur Specific [place] Urine Protein Urine Glucose (UA) Urine Ketones Urine Blood Urine Nitrate Urine Bilirubin Urine Urobilinogen Ur Leukocyte Esterase Urine WBC (Auto) Urine RBC (Auto) Ur Squamous Epith Cells Urine Bacteria Urine HCG, Qual Urine Opiates Screen Urine Methadone Screen Ur Barbiturates Screen Ur Phencyclidine Scrn Ur Amphetamines Screen U Benzodiazepines Scrn U Oth Cocaine Metabols U Cannabinoids Screen Alcohol, Quantitative Assessment & Plan - Assessment and Plan (Free Text) Plan: Near Syncopal Episode - Possibly due to polypharmacy/change in medications? Seizure? Orthostatic hypotension? - Telemetry - EKG: normal sinus rhythm@60bpm - Vitals currently stable, continue to monitor - Orthostatic vitals: f/u - Echocardiogram: f/u - TSH/Free T4: - Troponin x1: negative, follow up repeat Seizure - Hx of seizure - Patient's neurologist, Dr. Kimble, consulted; help appreciated - Last seizure 9 years ago in 2008. - Home medication: Topimax 100mg PO TID (recently changed [address] Kimble from 100mg AM and afternoon, and 200mg HS) - Continue Topimax 100mg PO TID - Prolactin: elevated at admission, 25.5 - Repeat prolactin: f/u in AM - Total CK: elevated, 146 - CXR: no abnormalities - EKG: normal sinus rhythm@60bpm - Head CT: no acute intracranial pathology - Consider MRI? - Seizure & fall precautions Hypertension - Continue home medication: Amlodipine 5mg PO daily - Continue to monitor Prophylaxis - DVT: SCDs; heparin 5000u SC Q8 - GI: Continue home medication Ranitidine 150mg PO daily - Heart healthy 2gNa diet - Seizure & fall precaution <Vance Joseph P - Last Filed: 12/10/17 07:50> Results - Vital Signs Recent Vital Signs: Last Vital Signs Temp 98.0 F 12/09/17 22:55 Pulse 76 12/09/17 23:30 Resp 20 12/09/17 22:55 BP 109/70 12/09/17 22:55 Pulse Ox 99 12/09/17 22:55 - Labs Result Diagrams: 12/09/17 17:09 12/09/17 17:09 Labs: Laboratory Results - last 24 hr 12/09/17 12/09/17 12/09/17 16:30 17:09 17:09 WBC 8.2 RBC 4.81 Hgb 12.9 Hct 40.3 MCV 83.7 MCH 26.7 L MCHC 31.9 L RDW 14.2 Plt Count 264 MPV 9.1 Neut % (Auto) 60.1 Lymph % (Auto) 28.4 [place] % (Auto) 9.0 Eos % (Auto) 1.9 Baso % (Auto) 0.6 Neut # (Auto) 4.9 Lymph # (Auto) 2.3 [place] # (Auto) 0.7 Eos # (Auto) 0.2 Baso # (Auto) 0.1 Sodium 143 Potassium 3.9 Chloride 107 Carbon Dioxide 23 Anion Gap 16 BUN 6 L Creatinine 0.7 Est GFR ( Amer) > 60 Est GFR (Non-Af Amer) > 60 POC Glucose (mg/dL) 82 Random Glucose 93 Calcium 9.4 Total Bilirubin 0.4 AST 21 ALT 18 Alkaline Phosphatase 56 Total Creatine Kinase 146 H CK-MB (Mass) Troponin I < 0.0120 Total Protein 8.1 Albumin 4.2 Globulin 3.8 Albumin/Globulin Ratio 1.1 Thyroxine (T4) TSH 3rd Generation Prolactin Urine Color Urine Clarity Urine pH Ur Specific [place] Urine Protein Urine Glucose (UA) Urine Ketones Urine Blood Urine Nitrate Urine Bilirubin Urine Urobilinogen Ur Leukocyte Esterase Urine WBC (Auto) Urine RBC (Auto) Ur Squamous Epith Cells Urine Bacteria Urine HCG, Qual Urine Opiates Screen Urine Methadone Screen Ur Barbiturates Screen Ur Phencyclidine Scrn Ur Amphetamines Screen U Benzodiazepines Scrn U Oth Cocaine Metabols U Cannabinoids Screen Alcohol, Quantitative < 10 12/09/17 12/09/17 12/09/17 18:20 18:20 18:22 WBC RBC Hgb Hct MCV MCH MCHC RDW Plt Count MPV Neut % (Auto) Lymph % (Auto) [place] % (Auto) Eos % (Auto) Baso % (Auto) Neut # (Auto) Lymph # (Auto) [place] # (Auto) Eos # (Auto) Baso # (Auto) Sodium Potassium Chloride Carbon Dioxide Anion Gap BUN Creatinine Est GFR ( Amer) Est GFR (Non-Af Amer) POC Glucose (mg/dL) Random Glucose Calcium Total Bilirubin AST ALT Alkaline Phosphatase Total Creatine Kinase CK-MB (Mass) Troponin I Total Protein Albumin Globulin Albumin/Globulin Ratio Thyroxine (T4) TSH 3rd Generation Prolactin Urine Color Yellow Urine Clarity Hazy Urine pH 8.0 Ur Specific [place] 1.012 Urine Protein Negative Urine Glucose (UA) Normal Urine Ketones Negative Urine Blood Negative Urine Nitrate Negative Urine Bilirubin Negative Urine Urobilinogen Normal Ur Leukocyte Esterase Neg Urine WBC (Auto) 3 Urine RBC (Auto) 1 Ur Squamous Epith Cells 4 Urine Bacteria Rare Urine HCG, Qual Negative Urine Opiates Screen Negative Urine Methadone Screen Negative Ur Barbiturates Screen Negative Ur Phencyclidine Scrn Negative Ur Amphetamines Screen Negative U Benzodiazepines Scrn Negative U Oth Cocaine Metabols Negative U Cannabinoids Screen Negative Alcohol, Quantitative 12/09/17 12/09/17 12/09/17 19:39 22:41 23:48 WBC RBC Hgb Hct MCV MCH MCHC RDW Plt Count MPV Neut % (Auto) Lymph % (Auto) [place] % (Auto) Eos % (Auto) Baso % (Auto) Neut # (Auto) Lymph # (Auto) [place] # (Auto) Eos # (Auto) Baso # (Auto) Sodium Potassium Chloride Carbon Dioxide Anion Gap BUN Creatinine Est GFR ( Amer) Est GFR (Non-Af Amer) POC Glucose (mg/dL) 111 H Random Glucose Calcium Total Bilirubin AST ALT Alkaline Phosphatase Total Creatine Kinase 104 CK-MB (Mass) 0.24 Troponin I < 0.0120 Total Protein Albumin Globulin Albumin/Globulin Ratio Thyroxine (T4) 7.90 TSH 3rd Generation 1.41 Prolactin 25.5 H Urine Color Urine Clarity Urine pH Ur Specific [place] Urine Protein Urine Glucose (UA) Urine Ketones Urine Blood Urine Nitrate Urine Bilirubin Urine Urobilinogen Ur Leukocyte Esterase Urine WBC (Auto) Urine RBC (Auto) Ur Squamous Epith Cells Urine Bacteria Urine HCG, Qual Urine Opiates Screen Urine Methadone Screen Ur Barbiturates Screen Ur Phencyclidine Scrn Ur Amphetamines Screen U Benzodiazepines Scrn U Oth Cocaine Metabols U Cannabinoids Screen Alcohol, Quantitative Attending/Attestation - Attestation I have personally seen and examined this patient.: Yes I have fully participated in the care of the patient.: Yes I have reviewed all pertinent clinical information: Yes Notes (Text): 12/10/17 07:43 3-4 episodes of seizure still no injuries, with patient's mind very clear immediately post seizure, plantars going down, suspicious for pseudosiezures. DD of atypical migraine, polypharmacy including topamax, cycobenzaprine, percocet, Obese Plan One dose of keppra given as seizure again not witnessed by me EEG Neurology consult GI/DVT prophylaxis Stop muscle relaxant See orders for detail.
--- NOTE | 2017-12-09 23:58 | PCM.RRT ---
<Magaly Kimball - Last Filed: 12/10/17 00:38> [employer] Nurses Assessment - Situation Date: 12/09/17 - Head Head Exam: ATRAUMATIC, NORMAL INSPECTION Additional Comments: no bites, abrasions, lacerations on tongue - Eyes Eye Exam: EOMI. absent: Nystagmus - Respiratory Exam Respiratory Exam: NORMAL BREATHING PATTERN. absent: Rales, Rhonchi, Wheezes - Cardiovascular Exam Cardiovascular Exam: REGULAR RHYTHM, +S1, +S2 - GI/Abdominal Exam GI & Abdominal Exam: Soft, Normal Bowel Sounds. absent: Tenderness - Neurological Exam Neurological Exam: Awake, Oriented x3 Additional exam: negative Babinski sign - Extremities Exam Extremities Exam: Normal Inspection Plan - Assessment of Findings&Treatment Plan [employer] was called for seizure activity. Per the nurse, the patient called for help because she had a headache and when the nurse arrive, the patient was seizing. Rapid response team arrived, patient was examined. Patient right arm was twitching. Patient was able to respond to questions and commands. Patient was able to say, in a stuttering manner, "my head hurts". Patient's left arm was stiff and contracted across her abdomen- she said she was unable to move that arm. Vitals were taken, BP 130/78, HR 109, O2 100%, glucose 111. Then Patient's left arm started to twitch. Ativan 1mg IV was ordered. Patient went into tonic clonic seizure for approximately 1 minute. Ativan 1 mg IV was given. Patient was able to speak shortly after and recalled the entire event. No tongue biting noted. Patient stated she believed she urinated. Patient was examined and did not urinate. Vitals were retaken- BP 136/73, HR 90, O2 99%. Patient states she feels tired. Keppra 750mg IV ordered and will be given. Patient's neurologist, Dr. Kimble, already consulted. Possible seizure vs. pseudoseizure. Continue to monitor. Seizure precautions already ordered. <Vance Joseph - Last Filed: 12/10/17 08:03> [employer] Nurses Assessment - Vital Signs Vital Signs: Rapid Response Vital Sign Blood Pressure 130/78 Pulse Rate 109 Respiratory Rate 22 Temperature 98.1 F Oxygen Saturation 100 - Vital Signs at end of [employer] Vital Signs at end of [employer]: Rapid Response End Vital Sign Blood Pressure 132/72 Pulse Rate 78 Respiratory Rate 18 Temperature 98.1 F O2 Sat by Pulse Oximetry 100 Attending/Attestation - Attestation I have personally seen and examined this patient.: Yes I have fully participated in the care of the patient.: Yes I have reviewed all pertinent clinical information, including history, physical exam and plan: Yes Notes (Text): 12/10/17 07:51 See on the H/P
[2017-12-10 00:01] LABS: CK-MB 0.24 ng/mL (0.0-3.38)
--- NOTE | 2017-12-10 07:39 | CP.PCM.CON ---
History of Present Illness - History of Present Illness History of Present Illness: CONSULT DICTATED REC SEIZURE - NON COMPLIANT WITH AED OHS / MIGRAINE HYRATION TPX 100 TID EEG ABG CHECK PCO2 Past Patient History - Infectious Disease Hx of Infectious Diseases: None - Past Medical History & Family History Past Medical History?: Yes - Past Social History Smoking Status: Never Smoked - CARDIAC Hx Cardiac Disorders: No - PULMONARY Hx Asthma: Yes Hx Sleep Apnea: Yes - NEUROLOGICAL Hx Migraine: Yes Hx Seizures: Yes - HEENT Other/Comment: SLEEPAPNEA & NARCOLEPSY - RENAL Hx Chronic Kidney Disease: No - ENDOCRINE/METABOLIC Hx Endocrine Disorders: No - HEMATOLOGICAL/ONCOLOGICAL Hx Blood Disorders: No - INTEGUMENTARY Hx Dermatological Problems: Yes Hx Eczema: Yes - MUSCULOSKELETAL/RHEUMATOLOGICAL Hx Falls: No - GASTROINTESTINAL Hx Gall Bladder Disease: Yes - GENITOURINARY/GYNECOLOGICAL Hx Genitourinary Disorders: No - PSYCHIATRIC Hx Substance Use: No - SURGICAL HISTORY Hx Cholecystectomy: Yes - ANESTHESIA Hx Anesthesia: Yes Hx Anesthesia Reactions: Yes (Nausea) Hx Malignant Hyperthermia: No Meds Allergies/Adverse Reactions: Allergies Allergy/AdvReac Type Severity Reaction Status Date / Time No Known Allergies Allergy Verified 12/09/17 16:35 - Medications Medications: Current Medications Acetazolamide (Diamox Sequels 500 Mg Sr Cap) 500 mg PO DAILY TRENT Amlodipine Besylate (Norvasc) 5 mg PO DAILY TRENT Famotidine (Pepcid) 20 mg PO BID TRENT Heparin Sodium (Porcine) (Heparin) 5,000 units SC Q8 TRENT Lorazepam (Ativan) 1 mg IVP Q4H PRN PRN Reason: Seizure activity Topiramate (Topamax) 100 mg PO TID TRENT Results - Vital Signs Recent Vital Signs: Last Vital Signs Temp 98.0 F 12/09/17 22:55 Pulse 76 12/09/17 23:30 Resp 20 12/09/17 22:55 BP 109/70 12/09/17 22:55 Pulse Ox 99 12/09/17 22:55 - Labs Result Diagrams: 12/09/17 17:09 12/09/17 17:09 Labs: Laboratory Results - last 24 hr 12/09/17 12/09/17 12/09/17 16:30 17:09 17:09 WBC 8.2 RBC 4.81 Hgb 12.9 Hct 40.3 MCV 83.7 MCH 26.7 L MCHC 31.9 L RDW 14.2 Plt Count 264 MPV 9.1 Neut % (Auto) 60.1 Lymph % (Auto) 28.4 [place] % (Auto) 9.0 Eos % (Auto) 1.9 Baso % (Auto) 0.6 Neut # (Auto) 4.9 Lymph # (Auto) 2.3 [place] # (Auto) 0.7 Eos # (Auto) 0.2 Baso # (Auto) 0.1 Sodium 143 Potassium 3.9 Chloride 107 Carbon Dioxide 23 Anion Gap 16 BUN 6 L Creatinine 0.7 Est GFR ( Amer) > 60 Est GFR (Non-Af Amer) > 60 POC Glucose (mg/dL) 82 Random Glucose 93 Calcium 9.4 Total Bilirubin 0.4 AST 21 ALT 18 Alkaline Phosphatase 56 Total Creatine Kinase 146 H CK-MB (Mass) Troponin I < 0.0120 Total Protein 8.1 Albumin 4.2 Globulin 3.8 Albumin/Globulin Ratio 1.1 Thyroxine (T4) TSH 3rd Generation Prolactin Urine Color Urine Clarity Urine pH Ur Specific [place] Urine Protein Urine Glucose (UA) Urine Ketones Urine Blood Urine Nitrate Urine Bilirubin Urine Urobilinogen Ur Leukocyte Esterase Urine WBC (Auto) Urine RBC (Auto) Ur Squamous Epith Cells Urine Bacteria Urine HCG, Qual Urine Opiates Screen Urine Methadone Screen Ur Barbiturates Screen Ur Phencyclidine Scrn Ur Amphetamines Screen U Benzodiazepines Scrn U Oth Cocaine Metabols U Cannabinoids Screen Alcohol, Quantitative < 10 12/09/17 12/09/17 12/09/17 18:20 18:20 18:22 WBC RBC Hgb Hct MCV MCH MCHC RDW Plt Count MPV Neut % (Auto) Lymph % (Auto) [place] % (Auto) Eos % (Auto) Baso % (Auto) Neut # (Auto) Lymph # (Auto) [place] # (Auto) Eos # (Auto) Baso # (Auto) Sodium Potassium Chloride Carbon Dioxide Anion Gap BUN Creatinine Est GFR ( Amer) Est GFR (Non-Af Amer) POC Glucose (mg/dL) Random Glucose Calcium Total Bilirubin AST ALT Alkaline Phosphatase Total Creatine Kinase CK-MB (Mass) Troponin I Total Protein Albumin Globulin Albumin/Globulin Ratio Thyroxine (T4) TSH 3rd Generation Prolactin Urine Color Yellow Urine Clarity Hazy Urine pH 8.0 Ur Specific [place] 1.012 Urine Protein Negative Urine Glucose (UA) Normal Urine Ketones Negative Urine Blood Negative Urine Nitrate Negative Urine Bilirubin Negative Urine Urobilinogen Normal Ur Leukocyte Esterase Neg Urine WBC (Auto) 3 Urine RBC (Auto) 1 Ur Squamous Epith Cells 4 Urine Bacteria Rare Urine HCG, Qual Negative Urine Opiates Screen Negative Urine Methadone Screen Negative Ur Barbiturates Screen Negative Ur Phencyclidine Scrn Negative Ur Amphetamines Screen Negative U Benzodiazepines Scrn Negative U Oth Cocaine Metabols Negative U Cannabinoids Screen Negative Alcohol, Quantitative 12/09/17 12/09/17 12/09/17 19:39 22:41 23:48 WBC RBC Hgb Hct MCV MCH MCHC RDW Plt Count MPV Neut % (Auto) Lymph % (Auto) [place] % (Auto) Eos % (Auto) Baso % (Auto) Neut # (Auto) Lymph # (Auto) [place] # (Auto) Eos # (Auto) Baso # (Auto) Sodium Potassium Chloride Carbon Dioxide Anion Gap BUN Creatinine Est GFR ( Amer) Est GFR (Non-Af Amer) POC Glucose (mg/dL) 111 H Random Glucose Calcium Total Bilirubin AST ALT Alkaline Phosphatase Total Creatine Kinase 104 CK-MB (Mass) 0.24 Troponin I < 0.0120 Total Protein Albumin Globulin Albumin/Globulin Ratio Thyroxine (T4) 7.90 TSH 3rd Generation 1.41 Prolactin 25.5 H Urine Color Urine Clarity Urine pH Ur Specific [place] Urine Protein Urine Glucose (UA) Urine Ketones Urine Blood Urine Nitrate Urine Bilirubin Urine Urobilinogen Ur Leukocyte Esterase Urine WBC (Auto) Urine RBC (Auto) Ur Squamous Epith Cells Urine Bacteria Urine HCG, Qual Urine Opiates Screen Urine Methadone Screen Ur Barbiturates Screen Ur Phencyclidine Scrn Ur Amphetamines Screen U Benzodiazepines Scrn U Oth Cocaine Metabols U Cannabinoids Screen Alcohol, Quantitative
[2017-12-10 08:50] LABS: BASO % 0.8 % (0.0-2.0); EOS # 0.2 K/uL (0.0-0.7); EOS % 2.7 % (0.0-4.0); HEMOGLOBIN 11.5 g/dL (11.0-16.0); LYMPH # 1.5 K/uL (1.0-4.3); LYMPH % 26.2 % (20.0-40.0); MEAN CELL VOLUME 83.3 fL (81.0-99.0); MEAN CORPUSCULAR HEMOGLOBIN 27.4 pg (27.0-31.0); MEAN CORPUSCULAR HGB CONC 32.9 g/dL (33.0-37.0); MEAN PLATELET VOLUME 9.5 fL (7.2-11.7); MONO # 0.6 K/uL (0.0-0.8); MONO % 10.1 % (0.0-10.0); NEUT # 3.5 K/uL (1.8-7.0); NEUT % 60.2 % (50.0-75.0); NRBC % 0.1 % (0.0-2.0); RBC 4.19 Mil/uL (3.80-5.20); RED CELL DISTRIBUTION WIDTH 13.9 % (11.5-14.5); WHITE BLOOD COUNT 5.9 K/uL (4.8-10.8)
[2017-12-10 09:03] LABS: ABG ALLEN TEST POS; ARTERIAL BLOOD GAS HCO3 22.4 mmol/L (21-28); ARTERIAL BLOOD GAS HEMOGLOBIN 11.6 g/dL (11.7-17.4); ARTERIAL BLOOD GAS O2 SAT 99.7 % (95-98); ARTERIAL BLOOD GAS PCO2 35 mm/Hg (35-45); ARTERIAL BLOOD GAS PH 7.39 (7.35-7.45); ARTERIAL BLOOD GAS PO2 124 mm/Hg (80-100); ARTERIAL BLOOD GAS TCO2 22.3 mmol/L (22-28)
[2017-12-10 09:25] LABS: ALB/GLOB RATIO 1.1 (1.0-2.1); ALBUMIN 3.4 g/dL (3.5-5.0); ALT/SGPT 23 U/L (9-52); AST/SGOT 18 U/L (14-36); BLOOD UREA NITROGEN 5 mg/dL (7-17); CALCIUM 8.7 mg/dl (8.6-10.4); GFR AFRICAN-AMERICAN > 60; GFR NON-AFRICAN AMERICAN > 60
[2017-12-10] MEDS ORDERED: acetaZOLAMIDE 500 mg SR Cap PO SCH (10:00)
--- NOTE | 2017-12-10 14:12 | CARD ---
APPROVED REPORT Date of service: 12/10/2017 EXAM: Two-dimensional and M-mode echocardiogram with Doppler and color Doppler. INDICATION Dizziness and Vertigo Chest Pain Syncope RISK FACTORS Hyperlipidemia 2D DIMENSIONS IVSd1.0 (0.7-1.1cm)LVDd4.5 (3.9-5.9cm) PWd1.2 (0.7-1.1cm)LVDs2.8 (2.5-4.0cm) FS (%) 37.4 %LVEF (%)67.5 (>50%) M-Mode DIMENSIONS Left Atrium (MM)3.89 (2.5-4.0cm)IVSd1.28 (0.7-1.1cm) Aortic Root3.37 (2.2-3.7cm)LVDd4.58 (4.0-5.6cm) Aortic Cusp Exc.2.53 (1.5-2.0cm)PWd1.06 (0.7-1.1cm) FS (%) 29 %LVDs3.25 (2.0-3.8cm) LVEF (%)56 (>50%) Mitral Valve MV E Fovkpiam908.1cm/sMV A Ftbqdtpx05.1cm/sE/A ratio1.5 TDI E/Lateral E'0.0E/Medial E'0.0 LEFT VENTRICLE The left ventricle is normal size. There is normal left ventricular wall thickness. The left ventricular function is normal. The left ventricular ejection fraction is within the normal range. No regional wall motion abnormalities noted. The left ventricular diastolic function is normal. No left ventricle thrombus noted on this study. There is no ventricular septal defect visualized. There is no left ventricular aneurysm. There is no mass noted in the left ventricle. RIGHT VENTRICLE The right ventricle is normal size. There is normal right ventricular wall thickness. The right ventricular systolic function is normal. ATRIA The left atrium size is normal. The right atrium size is normal. The interatrial septum is intact with no evidence for an atrial septal defect. AORTIC VALVE The aortic valve is normal in structure and function. No aortic regurgitation is present. There is no aortic valvular stenosis. There is no aortic valvular vegetation. MITRAL VALVE The mitral valve is normal in structure and function. There is no evidence of mitral valve prolapse. There is no mitral valve stenosis. There is no mitral valve regurgitation noted. TRICUSPID VALVE The tricuspid valve is normal in structure and function. There is no tricuspid valve regurgitation noted. There is no tricuspid valve prolapse or vegetation. There is no tricuspid valve stenosis. PULMONIC VALVE The pulmonary valve is normal in structure and function. There is no pulmonic valvular regurgitation. There is no pulmonic valvular stenosis. GREAT VESSELS The aortic root is normal in size. The ascending aorta is normal in size. The pulmonary artery is normal. The IVC is normal in size and collapses >50% with inspiration. PERICARDIAL EFFUSION The pericardium appears normal. There is no pleural effusion. <Conclusion> The left ventricular function is normal. The left ventricular ejection fraction is within the normal range. No regional wall motion abnormalities noted. No significant valvular abnormality.
--- NOTE | 2017-12-10 18:49 | CP.PCM.PN ---
Subjective - Date & Time of Evaluation Date of Evaluation: 12/10/17 Time of Evaluation: 14:56 - Subjective Subjective: PGY-1 Medicine Progress Note for hospitalist Dr. Chandler Patient was seen and examined today at bedside in no acute distress. Nurse reported no overnight events outside of the documented [employer]. Patient reports lethargy and fatigue above baseline. Denies chest pain, shortness of breath, abdominal pain, nausea, vomiting, constipation, diarrhea. Objective - Vital Signs/Intake and Output Vital Signs (last 24 hours): Temp Pulse Resp BP Pulse Ox 98.4 F 77 20 111/70 100 12/10/17 15:00 12/10/17 16:00 12/10/17 15:00 12/10/17 15:00 12/10/17 15:00 - Medications Medications: Current Medications Acetazolamide (Diamox Sequels 500 Mg Sr Cap) 500 mg PO DAILY [facility] Last Admin: 12/10/17 11:34 Dose: 500 mg Amlodipine Besylate (Norvasc) 5 mg PO DAILY [facility] Last Admin: 12/10/17 11:34 Dose: 5 mg Famotidine (Pepcid) 20 mg PO BID [facility] Last Admin: 12/10/17 17:33 Dose: 20 mg Heparin Sodium (Porcine) (Heparin) 5,000 units SC Q8 [facility] Last Admin: 12/10/17 13:50 Dose: 5,000 units Lorazepam (Ativan) 1 mg IVP Q4H PRN PRN Reason: Seizure activity Last Admin: 12/10/17 12:52 Dose: 1 mg Topiramate (Topamax) 100 mg PO TID [facility] Last Admin: 12/10/17 17:33 Dose: 100 mg - Labs Labs: 12/10/17 08:35 12/10/17 08:35 - Constitutional Appears: Non-toxic, No Acute Distress - Head Exam Head Exam: ATRAUMATIC, NORMOCEPHALIC - Eye Exam Eye Exam: EOMI, Normal appearance, PERRL. absent: Conjunctival injection, Scleral icterus - ENT Exam ENT Exam: Mucous Membranes Moist, Normal Exam - Respiratory Exam Respiratory Exam: Clear to Ausculation Bilateral, NORMAL BREATHING PATTERN. absent: Rales, Rhonchi, Wheezes - Cardiovascular Exam Cardiovascular Exam: REGULAR RHYTHM, +S1, +S2. absent: Murmur - GI/Abdominal Exam GI & Abdominal Exam: Soft, Normal Bowel Sounds. absent: Tenderness Additional comments: obese - Extremities Exam Extremities Exam: Full ROM, Normal Capillary Refill, Normal Inspection. absent : Joint Swelling, Pedal Edema Additional comments: pedal pulses present - Neurological Exam Neurological Exam: Alert, Awake, CN II-XII Intact, Normal Gait, Oriented x3 Additional comments: motor and sensation intact x4 extremities - Psychiatric Exam Psychiatric exam: Flat Affect, Normal Affect, Normal Mood - Skin Skin Exam: Dry, Intact, Normal Color, Warm Assessment and Plan - Assessment and Plan (Free Text) Plan: Near Syncopal Episode - Probable polypharmacy/change in medications - Possibly Seizure? Orthostatic hypotension? - Telemetry - EKG: normal sinus rhythm@60bpm - Vitals currently stable, continue to monitor - Orthostatic vitals: f/u - Echocardiogram: negative. LV function is normal, ejection fraction is within normal range - TSH/Free T4: 1.41, 7.90, respectively - Troponin x1: negative x2, f/u 3rd Seizure - Hx of seizure - Patient's neurologist, Dr. Kimble, consulted; help appreciated - EEG: f/u - ABG: pCO2 35 (nml) - Last seizure 9 years ago in 2008. - Home medication: Topimax 100mg PO TID (recently changed [address] Kimble from 100mg AM and afternoon, and 200mg HS) - Continue Topimax 100mg PO TID - Patient pharmacy called to confirm home medications. Patient has only been picking up Topimax 100mg PO BID - Topimax level: f/u - Prolactin: elevated at admission, 25.5 - Repeat prolactin: 43.7 - Total CK: elevated, 146 - CXR: no abnormalities - EKG: normal sinus rhythm@60bpm - Head CT: no acute intracranial pathology - Seizure & fall precautions Hypertension - Continue home medication: Amlodipine 5mg PO daily - Continue to monitor Prophylaxis - DVT: SCDs; heparin 5000u SC Q8 - GI: Continue home medication Ranitidine 150mg PO daily - Heart healthy 2gNa diet - Seizure & fall precaution
--- NOTE | 2017-12-10 18:50 | CON ---
DATE: 12/10/2017 TIME OF EVALUATION: 07:15 a.m. NEUROLOGICAL PROBLEM: Seizures. CHIEF COMPLAINT: The patient was brought into [facility] with a history of witnessed seizure at home. HISTORY OF PRESENT ILLNESS: Ms. Christine Church is a 47-year-old morbidly obese right-handed -[place] female who is known to me for nearly 10 years being treated for her benign intracranial hypertension with a complicated migraine and obstructive sleep apnea with seizures. The patient had been treated with the CPAP in the past, recent sleep studies, which were normal. No objective evidence of sleep apnea as per the latest polysomnogram. The patient is seizure free for more than nine years. She was brought in to [facility] with a history of seizures have been witnessed at home. The patient also complained of severe headache, which is not happening recently. PAST MEDICAL HISTORY: Hypertension, morbid obesity, obesity hypoventilation syndrome, seizures, benign intracranial hypertension, and migraine. PERSONAL HISTORY: Denies smoking or alcohol use. REVIEW OF SYSTEMS: A 12-point system being reviewed. From neuro, recurrent seizures. MEDICATIONS: Ativan for seizures, Pepcid, Topamax. PHYSICAL EXAMINATION: VITAL SIGNS: Blood pressure 130/78, mean arterial pressure of 98, pulse rate 78, respiratory rate 16, temperature afebrile. NECK: Supple. No carotid bruits. HEART: Sounds regular. CHEST: Fair air entry. EXTREMITIES: No edema in legs. NEUROLOGICAL: The patient seems to be drowsy, easily arousable. Mentation is normal for her. Speech is normal. She moves all four extremities against the gravity. No right and left confusion. Her drowsy and sleepiness probably related to her previous medication. Cranial Nerve: Visual field intact. Pupils reactive to light. Extraocular movements normal. No nystagmus. No facial sensory deficit. No facial asymmetry. Hearing is normal. Tongue is midline. Good gag. Motor: Outstretched hand with eyes closed, no drift noted. Power is symmetric on either side. Deep tendon reflexes biceps, brachialis, triceps all absent. Both knees are absent. Both ankles are absent. Plantars are downgoing. Sensory: Neuropathy. Coordination: [id number] test is intact. WORKUP: CT of the head reported as negative for acute pathology. Blood Workup: WBC 8.2, hemoglobin 12.9, hematocrit 40.3, platelets 264. Sodium 143, potassium 3.9, chloride 107, bicarbonate 23, BUN is 6, creatinine 0.7 with GFR more than 60, glucose 111, CPK 146, prolactin 25.5. Uric tox screen is negative. CONCLUSION: Ms. Christine Church been presenting with recurrent seizures, which is probably secondary to noncompliance with recommended dose of Topamax. The patient also suffering from migraine, which is probably secondary to her dehydration. RECOMMENDATIONS: 1. The patient should have electroencephalogram. 2. Agree with increasing Topamax 200 three times a day. 3. The patient definitely need repeat polysomnogram to rule out obesity hypoventilation. 4. If medically stable, the patient can be discharged and should have followup visit with me as an outpatient. Hilario Kimble MD MTDD
[2017-12-11 04:56] VITALS: TEMP 98.1
[2017-12-11 07:41] LABS: BASO # 0.1 K/uL (0.0-0.2); BASO % 0.8 % (0.0-2.0); EOS # 0.2 K/uL (0.0-0.7); HEMOGLOBIN 12.4 g/dL (11.0-16.0); LYMPH # 1.7 K/uL (1.0-4.3); LYMPH % 25.9 % (20.0-40.0); MEAN CELL VOLUME 83.4 fL (81.0-99.0); MEAN CORPUSCULAR HGB CONC 32.4 g/dL (33.0-37.0); MEAN PLATELET VOLUME 9.3 fL (7.2-11.7); MONO # 0.6 K/uL (0.0-0.8); MONO % 8.5 % (0.0-10.0); NEUT # 4.1 K/uL (1.8-7.0); NEUT % 61.8 % (50.0-75.0); RBC 4.59 Mil/uL (3.80-5.20); RED CELL DISTRIBUTION WIDTH 14.3 % (11.5-14.5); WHITE BLOOD COUNT 6.6 K/uL (4.8-10.8)
[2017-12-11 07:50] LABS: ALB/GLOB RATIO 1.2 (1.0-2.1); ALBUMIN 3.9 g/dL (3.5-5.0); ALT/SGPT 18 U/L (9-52); AST/SGOT 17 U/L (14-36); BLOOD UREA NITROGEN 7 mg/dL (7-17); CALCIUM 9.4 mg/dl (8.6-10.4); GFR AFRICAN-AMERICAN > 60; GFR NON-AFRICAN AMERICAN > 60
[2017-12-11 08:30] VITALS: BP 117/79; RESP 18; O2SAT 96
[2017-12-11 11:28] VITALS: PULSE 75
--- NOTE | 2017-12-11 12:21 | CARD ---
APPROVED REPORT Date of service: 12/09/2017 EKG Measurement Heart [id number] ME [id number] <Conclusion> Normal sinus rhythm Normal ECG
--- NOTE | 2017-12-11 12:28 | PN ---
DATE: 12/11/2017 TIME OF EVALUATION: 07:10 a.m. NEUROLOGICAL PROBLEM: Recurrent seizures. PHYSICAL EXAMINATION: VITAL SIGNS: Blood pressure 113/79, mean arterial pressure of 90, respiratory rate 18, temperature 98.1 degrees Fahrenheit , pulse rate 62 regular. NEUROLOGICAL: The patient slept good, still lethargic, but easily arousable calling her name. Oriented. Moves all four extremities against the gravity. No new episodes of the seizures. Still having headache. WORKUP: Her blood workup shows bicarbonate is 21, which is slightly getting lower than previous readings. RECOMMENDATIONS: Considering her Diamox and Topamax, I would like to discontinue Diamox and later continue Topamax alone for the seizure control as well as for migraine prophylaxis. The patient is recommended to get out of the bed as she can. Encouraged her intake of fluids. If medically stable, the patient can be discharged and should have followup visit with me as an outpatient. The patient should definitely need polysomnogram to be repeated for her impending obesity hypoventilation syndrome. Hilario Kimble MD
--- NOTE | 2017-12-11 13:49 | CP.PCM.DIS ---
Provider - Provider Date of Admission: 12/09/17 19:30 Attending physician: Vance Joseph MD Time Spent in preparation of Discharge (in minutes): 60 Hospital Course - Lab Results Lab Results: Most Recent Lab Values WBC 6.6 K/uL (4.8-10.8) 12/11/17 07: RBC 4.59 Mil/uL (3.80-5.20) 12/11/17 07: Hgb 12.4 g/dL (11.0-16.0) 12/11/17 07: Hct 38.3 % (34.0-47.0) 12/11/17 07: MCV 83.4 fL (81.0-99.0) 12/11/17 07: MCH 27.0 pg (27.0-31.0) 12/11/17 07: MCHC 32.4 g/dL (33.0-37.0) L 12/11/17: RDW 14.3 % (11.5-14.5) 12/11/17: Plt Count 244 K/uL (130-400) 12/11/17 07: MPV 9.3 fL (7.2-11.7) 12/11/17 07: Neut % (Auto) 61.8 % (50.0-75.0) 12/11/17 07: Lymph % (Auto) 25.9 % (20.0-40.0) 12/11/17: [place] % (Auto) 8.5 % (0.0-10.0) 12/11/17: Eos % (Auto) 3.0 % (0.0-4.0) 12/11/17 07: Baso % (Auto) 0.8 % (0.0-2.0) 12/11/17: Neut # (Auto) 4.1 K/uL (1.8-7.0) 12/11/17 07: Lymph # (Auto) 1.7 K/uL (1.0-4.3) 12/11/17 07:28 [place] # (Auto) 0.6 K/uL (0.0-0.8) 12/11/17 07: Eos # (Auto) 0.2 K/uL (0.0-0.7) 12/11/17 07:28 Baso # (Auto) 0.1 K/uL (0.0-0.2) 12/11/17 07:28 Puncture Site Lr 12/10/17 08:55 pCO2 35 mm/Hg (35-45) 12/10/17 08:55 pO2 124 mm/Hg (80-100) H 12/10/17 08:55 HCO3 22.4 mmol/L (21-28) 12/10/17 08:55 ABG pH 7.39 (7.35-7.45) 12/10/17 08:55 ABG Total CO2 22.3 mmol/L (22-28) 12/10/17 08:55 ABG O2 Saturation 99.7 % (95-98) H 12/10/17 08:55 ABG Base Excess -3.2 mmol/L (-2.0-3.0) L 12/10/17 08:55 ABG Hemoglobin 11.6 g/dL (11.7-17.4) L 12/10/17 08:55 ABG Carboxyhemoglobin 1.6 % (0.5-1.5) H 12/10/17 08:55 POC ABG HHb (Measured) 0.3 % (0.0-5.0) 12/10/17 08:55 ABG Methemoglobin 1.0 % (0.0-3.0) 12/10/17 08:55 Anatoliy Test Pos 12/10/17 08:55 A-a O2 Difference 32.0 mm/Hg 12/10/17 08:55 Respiratory Index 0.3 12/10/17 08:55 Hgb O2 Saturation 97.0 % (95.0-98.0) 12/10/17 08:55 Liter Flow 2.0 12/10/17 08:55 FiO2 28.0 % 12/10/17 08:55 Sodium 141 mmol/L (132-148) 12/11/17 07:28 Potassium 4.0 mmol/L (3.6-5.2) 12/11/17 07:28 Chloride 110 mmol/L (98-107) H 12/11/17 07:28 Carbon Dioxide 19 mmol/L (22-30) L 12/11/17 07:28 Anion Gap 16 (10-20) 12/11/17 07:28 BUN 7 mg/dL (7-17) 12/11/17 07:28 Creatinine 0.8 mg/dL (0.7-1.2) 12/11/17 07:28 Est GFR ( Amer) > 60 12/11/17 07:28 Est GFR (Non-Af Amer) > 60 12/11/17 07:28 POC Glucose (mg/dL) 111 mg/dL (65-110) H 12/09/17 23:48 Random Glucose 99 mg/dL (65-105) 12/11/17 07:28 Calcium 9.4 mg/dl (8.6-10.4) 12/11/17 07:28 Phosphorus 4.0 mg/dL (2.5-4.5) 12/11/17 07:28 Magnesium 2.0 mg/dL (1.6-2.3) 12/11/17 07:28 Total Bilirubin 0.5 mg/dL (0.2-1.3) 12/11/17 07:28 AST 17 U/L (14-36) 12/11/17 07:28 ALT 18 U/L (9-52) 12/11/17 07:28 Alkaline Phosphatase 51 U/L (38-126) 12/11/17 07:28 Total Creatine Kinase 104 U/L (30-135) 12/09/17 22:41 CK-MB (Mass) 0.24 ng/mL (0.0-3.38) 12/09/17 22:41 Troponin I < 0.0120 ng/mL (0.00-0.120) 12/10/17 20:00 Total Protein 7.3 g/dL (6.3-8.3) 12/11/17 07:28 Albumin 3.9 g/dL (3.5-5.0) 12/11/17 07:28 Globulin 3.4 gm/dL (2.2-3.9) 12/11/17 07:28 Albumin/Globulin Ratio 1.2 (1.0-2.1) 12/11/17 07:28 Thyroxine (T4) 7.90 ug/dL (5.5-11.0) 12/09/17 22:41 TSH 3rd Generation 1.41 mIU/L (0.46-4.68) 12/09/17 22:41 Prolactin 43.7 ng/mL (3.0-18.9) H 12/10/17 08:35 Urine Color Yellow (YELLOW) 12/09/17 18:20 Urine Clarity Hazy (Clear) 12/09/17 18:20 Urine pH 8.0 (5.0-8.0) 12/09/17 18:20 Ur Specific [place] 1.012 (1.003-1.030) 12/09/17 18:20 Urine Protein Negative mg/dL (NEGATIVE) 12/09/17 18:20 Urine Glucose (UA) Normal mg/dL (Normal) 12/09/17 18:20 Urine Ketones Negative mg/dL (NEGATIVE) 12/09/17 18:20 Urine Blood Negative (NEGATIVE) 12/09/17 18:20 Urine Nitrate Negative (NEGATIVE) 12/09/17 18:20 Urine Bilirubin Negative (NEGATIVE) 12/09/17 18:20 Urine Urobilinogen Normal mg/dL (0.2-1.0) 12/09/17 18:20 Ur Leukocyte Esterase Neg Cynthia/uL (Negative) 12/09/17 18:20 Urine WBC (Auto) 3 /hpf (0-5) 12/09/17 18:20 Urine RBC (Auto) 1 /hpf (0-3) 12/09/17 18:20 Ur Squamous Epith Cells 4 /hpf (0-5) 12/09/17 18:20 Urine Bacteria Rare (<OCC) 12/09/17 18:20 Urine HCG, Qual Negative (NEGATIVE) 12/09/17 18:22 Urine Opiates Screen Negative (NEGATIVE) 12/09/17 18:20 Urine Methadone Screen Negative (NEGATIVE) 12/09/17 18:20 Ur Barbiturates Screen Negative (NEGATIVE) 12/09/17 18:20 Ur Phencyclidine Scrn Negative (NEGATIVE) 12/09/17 18:20 Ur Amphetamines Screen Negative (NEGATIVE) 12/09/17 18:20 U Benzodiazepines Scrn Negative (NEGATIVE) 12/09/17 18:20 U Oth Cocaine Metabols Negative (NEGATIVE) 12/09/17 18:20 U Cannabinoids Screen Negative (NEGATIVE) 12/09/17 18:20 Alcohol, Quantitative < 10 mg/dl (0-10) 12/09/17 17:09 - Hospital Course Hospital Course: Patient is a 47 year old female with a history of seizures, migraines, sleep apnea, arthritis, HTN, and asthma, who presents to the ED with complaints of near syncope, weakness, headache, dizziness, and diaphoresis. The patient woke up at 6am, took her medications with orange juice, then walked downstairs around 6:45am to greet her niece. When the patient arrived downstairs, she felt weak, diaphoretic, dizzy, had blurry vision, and felt as though she was going to pass out. She proceeded to slowly fall to the ground. She denies falling, hitting her head, or any other part of her body. Her niece helped her back to bed, she slept until noon. When she got out of bed to go to the restroom at noon , she had the same symptoms and "sank to the floor" (did not fall or pass out). She decided to come to the hospital because "she just didn't feel right". Patient denies seizures at home. Last seizure was in 2008. Per the nurse, when she arrived at the ED, patient was actively seizing "patient was not responsive , arms and hands were contracted and crossed, and patient was shaking". Per the nurse, the episode lasted approximately 2 minutes, followed by confusion and lethargy. The patient currently complaints of weakness, fatigue, and a mild headache. Patient denies chest pain, palpitations, dyspnea, cough, abdominal pain, nausea, vomiting, fevers, diarrhea, constipation, blood stools, dysuria, hematuria, tongue biting, trauma, skin changes. Of note, patient was recently diagnosed with HTN in September and started Amlodipine, was recent prescribed Percocet 1 month ago for pain, and her topimax was decreased 2-3 weeks ago. PMD: Dr. Clarisse Lamb PMHx: seizures, migraines, sleep apnea, arthritis, HTN, and asthma SurgHx: Cholecystectomy 2001; Left knee surgery w/Dr. Brown 04/2017; Bariatric surgery 2015. FamHx: Sister- ME (); Sister- Breast cancer, asthma (); Brother- Meningitis (), Brother- Cirrhosis () SocHx: Denies tobacco, alcohol, and drug use; lives with two children in [facility] unemployed (disability) Allergies: NKDA Medications: Amlodipine 5mg PO, Ranitidine 15mg PO, Indomethacin 25mg, Acetazolaminde ER 500mg, Topiramate 100mg PO TID, Cyclobenzaprine 10mg, Meloxicam !5mg, Percocet Q6-8h prn, Dexilant 60mg, Vitamin B12, Multivitamins, Lidocaine ointment Upon arrival at [facility], CXR showed no active disease. Head CT showed no acute intracranial pathology. Echo showed LV EF is normal, no significant valvular abnormality or regional wall motion abnormalities. The patient had a rapid response called for a seizure overnight the first night, which was controlled with Ativan. Her neurologist, Dr. Kimble, came to visit her and adjusted her medications. Upon contacting her pharmacy, it was found that she had been taking her Topimax only twice a day, instead of three times a day. Her regimen was reinforced, and since she was no longer experiencing any symptoms, the patient was cleared for discharge and close followup by Dr. Kimble. Primary diagnosis: Seizure 2/2 AED medication non-compliance Patient stable for discharge per Dr. Chandler. Patient should not resume all home medications. The patient should not continue taking her Diamox. Patient should make an appointment and follow up with Dr. Kimble within one week to follow up on the medication change. Patient should return to ED immediately if symptoms return or worsen. Instructions discussed with patient who understood and agreed. This is a summary of the hospital course. Please refer to the EMR for more details. - Date & Time of H&P Date of H&P: 12/11/17 Time of H&P: 13:29 Discharge Exam - Head Exam Head Exam: ATRAUMATIC, NORMOCEPHALIC - Eye Exam Eye Exam: EOMI, Normal appearance, PERRL - ENT Exam ENT Exam: Mucous Membranes Moist, Normal Exam - Respiratory Exam Respiratory Exam: Clear to PA & Lateral, NORMAL BREATHING PATTERN, UNREMARKABLE. absent: Rales, Rhonchi, Wheezes, Stridor - Cardiovascular Exam Cardiovascular Exam: REGULAR RHYTHM, +S1, +S2. absent: Bradycardia, Tachycardia , Systolic Murmur - GI/Abdominal Exam GI & Abdominal Exam: Normal Bowel Sounds, Soft. absent: Rebound, Rigid, Tenderness Additional comments: obese s/p bariatric surgery - Extremities Exam Extremities exam: full ROM, pedal pulses present - Neurological Exam Neurological exam: Alert, CN II-XII Intact, Normal Gait, Oriented x3, Reflexes Normal - Psychiatric Exam Psychiatric exam: Normal Affect, Normal Mood - Skin Skin Exam: Dry, Intact, Normal Color, Warm Discharge Plan - Follow Up Plan Condition: FAIR Disposition: HOME/ ROUTINE Additional Instructions: Patient stable for discharge per Dr. Chandler. Patient should not resume all home medications. The patient should not continue taking her Diamox. Patient should make an appointment and follow up with Dr. Kimble within one week to follow up on the medication change. Patient should return to ED immediately if symptoms return or worsen. Instructions discussed with patient who understood and agreed. Referrals: Hilario Kimble MD [Staff Provider] -
== END 2017-12-11 14:31 | disposition home or self-care (01) | DRG 101 ==
LOC: C.ER 16:21 → C.9E 19:30 → C.6T 22:26
PROVIDERS: ADMIT Internal Medicine; ATTEND Internal Medicine
DX: G40.909 Epilepsy, unspecified, not intractable, without status epilepticus (principal); E66.2 Morbid (severe) obesity with alveolar hypoventilation; Z68.42 Body mass index [BMI] 45.0-49.9, adult; G43.909 Migraine, unspecified, not intractable, without status migrainosus; E86.0 Dehydration; G47.33 Obstructive sleep apnea (adult) (pediatric); G47.419 Narcolepsy without cataplexy; I10 Essential (primary) hypertension; J45.909 Unspecified asthma, uncomplicated; G93.2 Benign intracranial hypertension; M17.12 Unilateral primary osteoarthritis, left knee; W19.XXXA Unspecified fall, initial encounter; Z90.49 Acquired absence of other specified parts of digestive tract; Z91.19 Patient's noncompliance with other medical treatment and regimen; Z98.84 Bariatric surgery status

== ENCOUNTER 2017-12-12 21:58 | Emergency (ER) | payer MEDICARE, OTHER ==
[2017-12-12 21:58] VITALS: BMI 46.3
--- NOTE | 2017-12-12 22:10 | C.PDOC ---
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 Patient was discharged from the hospital yesterday for breakthrough seizures. Patient has been taking her topamax TID as prescribed with but states has had a headache for the past 4-5 days, she states they were aware while she was inpatient but was only given tylenol. Patient has a known Hx of migraines, she took imitrex this morning but headache persists. Patient takes percocet on occasion but has not taken any today. Patient had a recent negative CT scan and is s/p evaluation by Dr. Jeffries inpatient. Denies fever, chills, chest pain, or SOB. history of seizures, migraines, sleep apnea, arthritis, HTN, and asthma PMD: Dr. Clarisse Lamb PMHx: seizures, migraines, sleep apnea, arthritis, HTN, and asthma SurgHx: Cholecystectomy 2001; Left knee surgery w/Dr. Brown 04/2017; Bariatric surgery 2015. FamHx: Sister- [place] (); Sister- Breast cancer, asthma (); Brother- Meningitis (), Brother- Cirrhosis () SocHx: Denies tobacco, alcohol, and drug use; lives with two children in [facility] unemployed (disability) Allergies: NKDA Medications: Amlodipine 5mg PO, Ranitidine 15mg PO, Indomethacin 25mg, Acetazolaminde ER 500mg, Topiramate 100mg PO TID, Cyclobenzaprine 10mg, Meloxicam !5mg, Percocet Q6-8h prn, Dexilant 60mg, Vitamin B12, Multivitamins, Lidocaine ointment Time Seen by Provider: 12/12/17 22:00 History Per: Patient History/Exam Limitations: no limitations Recent Seizure Activity Began: Just Before Arrival Number Of Seizures: One Quality Of Seizure: Generalized Recent travel outside of the [place]: No Past Medical History Reviewed: Historical Data, Nursing Documentation, Vital Signs Vital Signs: Last Vital Signs Temp 98.2 F 12/12/17 22:14 Pulse 76 12/12/17 22:14 Resp 16 12/12/17 22:14 BP 120/68 12/12/17 22:14 Pulse Ox 100 12/12/17 22:14 - Medical History PMH: Arthritis (LEFT KNEE), Asthma, Fractures (RT.WRIST/ CASTED), Gall Bladder Disease, Migraine, Seizures, Sleep Apnea Surgical History: Cholecystectomy, Endoscopy - [facility] Procedures EXCISION OF STOMACH, PERCUTANEOUS ENDOSCOPIC APPROACH, VERT (01/04/16) INSPECTION OF UPPER INTESTINAL TRACT, ENDO (01/04/16) Family History: States: Unknown Family Hx - Social History Hx Tobacco Use: No Hx Alcohol Use: No Hx Substance Use: No - Immunization History Hx Tetanus Toxoid Vaccination: Yes Hx Influenza Vaccination: Yes Hx Pneumococcal Vaccination: No Review Of Systems Except As Marked, All Systems Reviewed And Found Negative. Constitutional: Negative for: Fever, Chills Cardiovascular: Negative for: Chest Pain Respiratory: Negative for: Shortness of Breath Gastrointestinal: Negative for: Nausea, Vomiting Neurological: Positive for: Seizures, Headache Physical Exam - Physical Exam Appears: Non-toxic Skin: Normal Color, Warm, Dry Head: Atraumatic, Normacephalic Eye(s): bilateral: Normal Inspection, PERRL, EOMI Oral Mucosa: Moist Neck: Normal, Supple Chest: Symmetrical, No Tenderness Cardiovascular: Rhythm Regular Respiratory: Normal Breath Sounds, No Rales, No Rhonchi, No Wheezing Gastrointestinal/Abdominal: Soft, No Tenderness Extremity: Normal ROM (x4) Neurological/Psych: Oriented x3, Normal Speech, Normal Motor, Normal Sensation Gait: Steady Progress - Re-Evaluation Re-evaluation Note: 12/13/17 00:25 NO RECUR SZ SINCE INITIAL EVAL. PT APPEARS COMFORTABLE, STATES IS ASYMPT. ADVISED FU DR JEFFRIES - Data Reviewed Data Reviewed: Old records Medical Decision Making Medical Decision Making: Plan: * Decadron * Mag sulfate * Reglan * Toradol * Tylenol * IV fluids Patient is s/p extensive work for seizures within this week, will not repeat PET scan. Disposition Counseled Patient/Family Regarding: Studies Performed, Diagnosis, Need For Followup - Disposition Referrals: Hilaroi Jeffries MD [Staff Provider] - Disposition: HOME/ ROUTINE Disposition Time: 00:28 Condition: IMPROVED Instructions: Migraine Headache (DC) - Clinical Impression Clinical Impression: Migraine - Scribe Statement The provider has reviewed the documentation as recorded by the Scribe Preet Melchor All medical record entries made by the Scribe were at my direction and personally dictated by me. I have reviewed the chart and agree that the record accurately reflects my personal performance of the history, physical exam, medical decision making, and the department course for this patient. I have also personally directed, reviewed, and agree with the discharge instructions and disposition.
[2017-12-12] MEDS ORDERED: Dexamethasone 4 mg/1 ml IVP STA (22:12)
[2017-12-12] MEDS ORDERED: Magnesium Sulfate 1 gm in D5W 1 GM/100 ML BAG IVPB STA (22:12)
[2017-12-12] MEDS ORDERED: Sodium Chloride 0.9% 1,000 ML IV STA (22:12)
[2017-12-12 22:22] VITALS: BP 120/68
[2017-12-12] MEDS ORDERED: Dexamethasone 4 mg/1 ml ONE (23:24)
[2017-12-13] MEDS ORDERED: Magnesium Sulfate 1 gm in D5W 1 GM/100 ML BAG IVPB ONE (00:11)
[2017-12-13 01:03] VITALS: PULSE 72; RESP 20; TEMP 98.1; O2SAT 98
== END 2017-12-13 01:02 | disposition home or self-care (01) ==
LOC: C.ER 21:58
DX: G43.909 Migraine, unspecified, not intractable, without status migrainosus (principal)
CPT/HCPCS: 82948; 96374; 96375; 99285; J1100; J1885; J2765; J3475; J7030

== ENCOUNTER 2017-12-31 11:41 | Emergency (ER) | payer MEDICARE, OTHER ==
[2017-12-31 11:41] VITALS: BMI 46.3
[2017-12-31 11:44] VITALS: O2SAT 100
[2017-12-31] MEDS ORDERED: Sodium Chloride 0.9% 1,000 ML IV ONE (12:11)
[2017-12-31] MEDS ORDERED: DiphenhydrAMINE 50 mg/ml Inj IVP STA (12:13)
--- NOTE | 2017-12-31 12:13 | C.PDOC ---
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 Patient is on Topamax given to her by Dr. Jeffries (neurology), and was also recently started on Vimpat - has been compliant with both meds. She denies chest pain, SOB, abdominal pain, visual changes, sensory changes, extremity weakness, gait changes, palpitations, fever/ Time Seen by Provider: 12/31/17 11:56 Chief Complaint (Nursing): Syncope History Per: Patient, EMS History/Exam Limitations: no limitations Past Medical History Reviewed: Historical Data, Nursing Documentation, Vital Signs Vital Signs: Last Vital Signs Temp 98.0 F 12/31/17 15:30 Pulse 54 L 12/31/17 15:30 Resp 16 12/31/17 15:30 BP 118/68 12/31/17 15:30 Pulse Ox 100 12/31/17 15:30 - Medical History PMH: Arthritis (LEFT KNEE), Asthma, Fractures (RT.WRIST/ CASTED), Gall Bladder Disease, Migraine, Seizures, Sleep Apnea Surgical History: Cholecystectomy, Endoscopy - [facility] Procedures EXCISION OF STOMACH, PERCUTANEOUS ENDOSCOPIC APPROACH, VERT (01/04/16) INSPECTION OF UPPER INTESTINAL TRACT, ENDO (01/04/16) Family History: States: No Known Family Hx - Social History Hx Tobacco Use: No Hx Alcohol Use: No Hx Substance Use: No - Immunization History Hx Tetanus Toxoid Vaccination: Yes Hx Influenza Vaccination: Yes Hx Pneumococcal Vaccination: No Review Of Systems Constitutional: Positive for: Weakness. Negative for: Fever, Chills Cardiovascular: Negative for: Chest Pain, Palpitations Respiratory: Negative for: Shortness of Breath Gastrointestinal: Negative for: Nausea, Vomiting, Abdominal Pain, Diarrhea Neurological: Positive for: Seizures (?), Headache, Dizziness. Negative for: Weakness, Numbness, Confusion, Altered Mental Status Physical Exam - Physical Exam Appears: Well, Non-toxic, Other (in mild discomfort ) Skin: Normal Color, Warm, Dry, No Rash Head: Atraumatic, Normacephalic Eye(s): bilateral: Normal Inspection, PERRL, EOMI Oral Mucosa: Moist Cardiovascular: Rhythm Regular (mildly bradycardic) Respiratory: Normal Breath Sounds, No Rales, No Rhonchi, No Wheezing Gastrointestinal/Abdominal: Normal Exam, Bowel Sounds, Soft, No Tenderness Extremity: Normal ROM, No Pedal Edema, No Calf Tenderness Neurological/Psych: Oriented x3, Normal Speech, Normal Cognition, Normal Cranial Nerves, No Cerebellar Signs, Normal Motor, Normal Sensation ED Course And Treatment - Laboratory Results Result Diagrams: 12/31/17 12:40 12/31/17 12:40 O2 Sat by Pulse Oximetry: 100 - Physician Consult Information Physician Contacted: Hilario Jeffries Outcome Of Conversation: Discussed patient with Dr. Jeffries, recommends IV toradol and follow up in the office- Patient's symptoms are partial complex seizures vs pseudoseizures. She has already been given Vimpat in addition to her Topamax. Disposition Counseled Patient/Family Regarding: Studies Performed, Diagnosis, Need For Followup, Rx Given - Disposition Referrals: Hilario Jeffries MD [Staff Provider] - Disposition: HOME/ ROUTINE Disposition Time: 15:50 Condition: STABLE Additional Instructions: FOLLOW UP WITH DR JEFFRIES WITHIN 1 WEEK CONTINUE YOUR MEDICATIONS USE FIORECET NEEDED FOR HEADACHE RETURN TO ER IF SYMPTOMS WORSEN Prescriptions: Acetaminophen/Butalbital/Caf [Fioricet] 1 tab PO TID PRN #20 tab PRN Reason: Headache Instructions: Migraine Headache (DC), Seizures, Adult (DC) Forms: [employer] (Belarusian) Print Language: BENGALI - Clinical Impression Clinical Impression: Seizure, Migraine
[2017-12-31] MEDS ORDERED: Sodium Chloride 0.9% 1,000 ML ONE (12:42)
[2017-12-31] MEDS ORDERED: DiphenhydrAMINE 50 mg/ml Inj ONE (12:42)
[2017-12-31 12:48] LABS: BASO # 0.1 K/uL (0.0-0.2); EOS # 0.1 K/uL (0.0-0.7); EOS % 1.6 % (0.0-4.0); HEMOGLOBIN 12.7 g/dL (11.0-16.0); LYMPH # 1.4 K/uL (1.0-4.3); LYMPH % 24.2 % (20.0-40.0); MEAN CORPUSCULAR HEMOGLOBIN 27.1 pg (27.0-31.0); MEAN CORPUSCULAR HGB CONC 32.3 g/dL (33.0-37.0); MEAN PLATELET VOLUME 9.3 fL (7.2-11.7); MONO # 0.4 K/uL (0.0-0.8); MONO % 7.2 % (0.0-10.0); NEUT # 3.9 K/uL (1.8-7.0); NRBC % 0.1 % (0.0-2.0); RBC 4.68 Mil/uL (3.80-5.20); RED CELL DISTRIBUTION WIDTH 14.9 % (11.5-14.5); WHITE BLOOD COUNT 5.9 K/uL (4.8-10.8)
[2017-12-31 13:00] LABS: ALB/GLOB RATIO 1.3 (1.0-2.1); ALBUMIN 4.6 g/dL (3.5-5.0); ALT/SGPT 18 U/L (9-52); AST/SGOT 21 U/L (14-36); BLOOD UREA NITROGEN 9 mg/dL (7-17); CALCIUM 9.6 mg/dl (8.6-10.4); GFR AFRICAN-AMERICAN > 60; GFR NON-AFRICAN AMERICAN > 60
[2017-12-31 13:08] LABS: HCG,QUALITATIVE URINE NEGATIVE (NEGATIVE)
[2017-12-31 13:08] LABS: CK-MB 0.81 ng/mL (0.0-3.38)
[2017-12-31 13:14] LABS: SQUAMOUS EPITHIAL 5 /hpf (0-5); URINE BACTERIA RARE (<OCC); URINE BILIRUBIN NEGATIVE (NEGATIVE); URINE BLOOD NEGATIVE (NEGATIVE); URINE CLARITY Hazy (Clear); URINE COLOR Yellow (YELLOW); URINE GLUCOSE (UA) NORMAL (Normal); URINE LEUKOCYTE ESTERASE NEG Leu/uL (Negative); URINE PROTEIN NEGATIVE (NEGATIVE)
[2017-12-31 15:31] VITALS: BP 118/68; PULSE 54; RESP 16; TEMP 98
== END 2017-12-31 16:24 | disposition home or self-care (01) ==
LOC: C.ER 11:41
DX: G40.909 Epilepsy, unspecified, not intractable, without status epilepticus (principal); G43.909 Migraine, unspecified, not intractable, without status migrainosus
CPT/HCPCS: 80053; 80201; 81001; 82550; 82553; 82948; 84484; 84703; 85025; 93005; 96361; 96374; 96375; 99285; J1200; J1885; J2765; J7030

== ENCOUNTER 2018-08-09 00:09 | Emergency (ER) | payer MEDICARE, OTHER ==
[2018-08-09 00:10] VITALS: BMI 46.3
--- NOTE | 2018-08-09 00:38 | C.PDOC ---
History Of Present Illness 48 year old female presents to the ED c/o abdominal pain, pelvic pain radiating to her rectum. Patient denies fever, chills, nausea, vomit, diarrhea, dysuria, hematuria, back pain, vaginal bleeding, rash. Time Seen by Provider: 08/09/18 00:38 Chief Complaint (Nursing): Abdominal Pain History Per: Patient History/Exam Limitations: no limitations Onset/Duration Of Symptoms: Days Current Symptoms Are (Timing): Still Present Location Of Pain/Discomfort: Suprapubic Radiation Of Pain To:: Other Quality Of Discomfort: "Pain" Associated Symptoms: denies: Nausea, Vomiting, Diarrhea, Urinary Symptoms Exacerbating Factors: Movement Recent travel outside of the [place]: No Additional History Per: Patient Abnormal Vaginal Bleeding: No Past Medical History Reviewed: Historical Data, Nursing Documentation, Vital Signs Vital Signs: Last Vital Signs Temp 97.7 F 08/09/18 00:21 Pulse 100 H 08/09/18 00:21 Resp 20 08/09/18 00:21 BP 130/89 08/09/18 00:21 Pulse Ox 100 08/09/18 00:21 - Medical History PMH: Arthritis (LEFT KNEE), Asthma, Fractures (RT.WRIST/ CASTED), Gall Bladder Disease, Migraine, Seizures, Sleep Apnea Denies: Chronic Kidney Disease Surgical History: Cholecystectomy, Endoscopy - [facility] Procedures EXCISION OF STOMACH, PERCUTANEOUS ENDOSCOPIC APPROACH, VERT (01/04/16) INSPECTION OF UPPER INTESTINAL TRACT, ENDO (01/04/16) Family History: States: Unknown Family Hx - Social History Hx Tobacco Use: No Hx Alcohol Use: No Hx Substance Use: No - Immunization History Hx Tetanus Toxoid Vaccination: Yes Hx Influenza Vaccination: Yes Hx Pneumococcal Vaccination: No Review Of Systems Constitutional: Negative for: Fever, Chills Cardiovascular: Negative for: Chest Pain Respiratory: Negative for: Shortness of Breath Gastrointestinal: Positive for: Abdominal Pain, Rectal Pain. Negative for: Nausea, Vomiting Genitourinary: Positive for: Pelvic Pain Skin: Negative for: Rash Neurological: Negative for: Weakness, Numbness, Headache, Dizziness Physical Exam - Physical Exam Appears: Non-toxic, No Acute Distress Skin: Warm, Dry Head: Normacephalic Eye(s): bilateral: Normal Inspection Neck: Supple Chest: Symmetrical Cardiovascular: Rhythm Regular Respiratory: No Rales, No Rhonchi, No Wheezing Gastrointestinal/Abdominal: Soft, No Tenderness, No Guarding, No Rebound Rectal: Hemorrhoids (small external non bleeding), Other (Chaperoned by [email or web address]) Pelvic: Vaginal Discharge (whitich cheese like ), No Cervical Motion Tenderness, No Cervix Open, No Adnexal Tenderness, Other (Chaperoned by [email or web address]) Extremity: Bilateral: Atraumatic, Normal Color And Temperature, Normal ROM Neurological/Psych: Oriented x3, Normal Speech, Normal Cognition Gait: Steady ED Course And Treatment - Laboratory Results Result Diagrams: 08/09/18 01:46 08/09/18 03:07 O2 Sat by Pulse Oximetry: 100 (ON RA) Pulse Ox Interpretation: Normal - CT Scan/US Ct abd/pelvis Other Rad Studies (CT/US): Read By Radiologist, Radiology Report Reviewed CT/US Interpretation: CT SCAN OF THE ABDOMEN AND PELVIS WITH CONTRAST. CLINICAL HISTORY: Abdominal pain. Rectal pain. TECHNIQUE: Multiple axial and coronal CT images were obtained through the abdomen and pelvis after administration of intravenous contrast material. COMPARISON: 01/25/2014. COMMENTS: Mild thickening of the anorectal junction. Changes of gastric bypass surgery. The liver is enlarged with decreased attenuation without mass or defect. There is no intra or extrahepatic biliary ductal dilatation. The spleen is normal. The gallbladder is surgically absent. The pancreas is of normal contour and attenuation characteristics. There is no evidence of adrenal mass. Bilateral nonobstructing renal stones are noted with the largest measuring 3 mm. Both kidneys demonstrate prompt and equal nephrograms. The kidneys are normal in size, shape and configuration. There is no evidence of renal or ureteral mass. No renal or ureteral calculi are identified. There is no hydroureter or hydronephrosis. No evidence for appendicitis. There is no bowel wall thickening. No evidence for small or large bowel obstruction. There is no evidence of abdominal ascites or lymphadenopathy. There is no evidence of intrinsic or extrinsic bladder mass. There is no pelvic ascites or lymphadenopathy. Images of the lung bases show no evidence of pleural or parenchymal mass. There are no pleural effusions. The bony structures are free of lytic or blastic lesions. Grade 1 retrolisthesis of L5 on S1. IMPRESSION: Mild thickening of the anorectal junction. Underdistention, spasm versus mild acute inflammatory pathology. Hepatomegaly with hepatic steatosis. Uncomplicated colonic diverticulosis. Thank you for your kind referral of this patient. . Electronically signed on Aug 09, 2018 5:31:26 AM EDT by: Leila Price M.D., Certified by ABR, MSK, Neuroradiology. Progress Note: Plan: - CT abd/pelvis. - Labs. - Diflucan 200 mg PO. - IV fluids. - Toradol 30 mg IVP. - Rocephin IVPB. - UA Reevaluation Time: 05:34 Reassessment Condition: Improved Medical Decision Making Medical Decision Making: Upon provider reevaluation patient is feeling better, is medically stable, and requires no further treatment in the ED at this time. Patient will be discharged home with Rx for macrobid, diflucan. tramadol . Counseling was provided and all questions were answered regarding diagnosis and need for follow up with dr lamb. There is agreement to discharge plan. Return if symptoms persist or worsen. Disposition Counseled Patient/Family Regarding: Studies Performed, Diagnosis, Need For Followup, Rx Given - Disposition Referrals: Clarisse Lamb MD [Staff Provider] - Disposition: HOME/ ROUTINE Disposition Time: 00:38 Condition: FAIR Additional Instructions: Please return if symptoms recur Prescriptions: Fluconazole [Diflucan] 200 mg PO DAILY #5 ml Nitrofurantoin Macrocrystals [Macrobid] 1 cap PO BID #14 cap Instructions: Urinary Tract Infection, Adult (DC), Vaginal Yeast Infection (DC) Forms: [facility] (Uruguayan) - Clinical Impression Clinical Impression: Rectal pain, UTI (urinary tract infection), Yeast infection of the vagina - Scribe Statement The provider has reviewed the documentation as recorded by the Scribe Spencer Joy All medical record entries made by the Scribe were at my direction and personally dictated by me. I have reviewed the chart and agree that the record accurately reflects my personal performance of the history, physical exam, medical decision making, and the department course for this patient. I have also personally directed, reviewed, and agree with the discharge instructions and di sposition.
[2018-08-09] MEDS ORDERED: Sodium Chloride 0.9% 1,000 ML IV ONE (01:25)
[2018-08-09 01:49] LABS: BASO # 0.1 K/uL (0.0-0.2); BASO % 0.8 % (0.0-2.0); EOS # 0.2 K/uL (0.0-0.7); EOS % 2.5 % (0.0-4.0); HEMOGLOBIN 12.3 g/dL (11.0-16.0); LYMPH # 2.1 K/uL (1.0-4.3); LYMPH % 31.7 % (20.0-40.0); MEAN CELL VOLUME 82.3 fL (81.0-99.0); MEAN CORPUSCULAR HEMOGLOBIN 25.4 pg (27.0-31.0); MEAN CORPUSCULAR HGB CONC 30.9 g/dL (33.0-37.0); MONO # 0.6 K/uL (0.0-0.8); MONO % 9.5 % (0.0-10.0); NEUT # 3.6 K/uL (1.8-7.0); NEUT % 55.5 % (50.0-75.0); RBC 4.84 Mil/uL (3.80-5.20); RED CELL DISTRIBUTION WIDTH 15.2 % (11.5-14.5); WHITE BLOOD COUNT 6.5 K/uL (4.8-10.8)
[2018-08-09] MEDS ORDERED: Iodixanol 320 MG/ML 100 ML BOTTLE IV ONE (01:58)
[2018-08-09] MEDS ORDERED: Sodium Chloride 0.9% 1,000 ML ONE (03:00)
[2018-08-09 03:06] LABS: SQUAMOUS EPITHIAL 20 /hpf (0-5); URINE BILIRUBIN NEGATIVE (NEGATIVE); URINE BLOOD NEGATIVE (NEGATIVE); URINE CLARITY Hazy (Clear); URINE COLOR Yellow (YELLOW); URINE GLUCOSE (UA) NORMAL (Normal); URINE LEUKOCYTE ESTERASE 3+ Leu/uL (Negative); URINE PROTEIN NEGATIVE (NEGATIVE)
[2018-08-09] MEDS ORDERED: cefTRIAXone IV 1 gm in Dextros 50 ML IVPB ONE (03:08)
[2018-08-09 03:20] LABS: ALB/GLOB RATIO 1.2 (1.0-2.1); ALBUMIN 4.1 g/dL (3.5-5.0); ALT/SGPT 7 U/L (9-52); AST/SGOT 21 U/L (14-36); BLOOD UREA NITROGEN 10 mg/dL (7-17); CALCIUM 9.1 mg/dl (8.6-10.4); GFR NON-AFRICAN AMERICAN > 60; LIPASE 144 U/L (23-300)
[2018-08-09 04:05] VITALS: BP 136/79; PULSE 83; RESP 19; TEMP 98.2
[2018-08-09 05:32] VITALS: O2SAT 100
--- NOTE | 2018-08-09 14:31 | CT ---
Date of service: 08/09/2018 PROCEDURE: CT Abdomen and Pelvis with contrast HISTORY: abdominal, pelvic, rectal pain COMPARISON: Comparison is made to the previous study dated 01/25/2014 TECHNIQUE: Contrast dose: 100 mL of Visipaque 320 intravenously. Axial and reformatted coronal and sagittal CT images of the abdomen and pelvis were obtained after IV contrast administration Radiation dose: Total exam DLP = 1234.95 mGy-cm. This CT exam was performed using one or more of the following dose reduction techniques: Automated exposure control, adjustment of the mA and/or kV according to patient size, and/or use of iterative reconstruction technique. FINDINGS: LOWER THORAX: Unremarkable. LIVER: Mild hepatomegaly with finding suggestive of mild hepatic steatosis. GALLBLADDER AND BILE DUCTS: Status post cholecystectomy. PANCREAS: Unremarkable. No gross lesion or ductal dilatation. SPLEEN: Unremarkable. ADRENALS: Unremarkable. No mass. KIDNEYS AND URETERS: Unremarkable. No hydronephrosis. No solid mass. VASCULATURE: Unremarkable. No aortic aneurysm. No aortic atherosclerotic calcification or mural plaque present. BOWEL: Few colonic diverticulosis are noted without evidence of diverticulitis. There are surgical changes and stable is noted adjacent to the stomach new compared to the prior study. Moderate circumferential wall thickening of the anus and rectoanal junction noted. The possibility of neoplasm is not totally excluded. No evidence of high-grade bowel obstruction. APPENDIX: No evidence of appendicitis. PERITONEUM: Unremarkable. No free fluid. No free air. LYMPH NODES: Unremarkable. No enlarged lymph nodes. BLADDER: Unremarkable. REPRODUCTIVE: Unremarkable. BONES: No acute fracture. OTHER FINDINGS: None. IMPRESSION: Moderate anorectal junction wall thickening noted. Findings may represent prostate is versus neoplasm. Further evaluation is recommended. Mild hepatomegaly. Uncomplicated colonic diverticulosis. Preliminary report was submitted by [facility] [[email or web address]] Radiology contains concordant findings.
== END 2018-08-09 05:48 | disposition home or self-care (01) ==
LOC: C.ER 00:09
DX: N39.0 Urinary tract infection, site not specified (principal); B37.3 Candidiasis of vulva and vagina; K62.89 Other specified diseases of anus and rectum
CPT/HCPCS: 74177; 80053; 81001; 81025; 83690; 85025; 96365; 96375; 99284; J0696; J1885; J7030; Q9967

== ENCOUNTER 2018-09-11 10:06 | Emergency (ER) | payer MEDICARE, OTHER ==
[2018-09-11 10:19] VITALS: BMI 46.0
[2018-09-11 10:22] VITALS: BP 118/79; PULSE 73; RESP 18; TEMP 98.1; O2SAT 100
[2018-09-11] MEDS ORDERED: MethylPREDNISolone 40 mg Vial IM STA (11:02)
[2018-09-11 11:52] LABS: SQUAMOUS EPITHIAL 28 /hpf (0-5); URINE BACTERIA RARE (<OCC); URINE BILIRUBIN NEGATIVE (NEGATIVE); URINE BLOOD 1+ (NEGATIVE); URINE CLARITY Hazy (Clear); URINE COLOR Yellow (YELLOW); URINE GLUCOSE (UA) NORMAL (Normal); URINE LEUKOCYTE ESTERASE 3+ Leu/uL (Negative); URINE PROTEIN 1+ mg/dL (NEGATIVE)
--- NOTE | 2018-09-11 12:02 | C.PDOC ---
History Of Present Illness 48-year-old female, whose past medical history includes sciatica and is currently undergoing physical therapy, presents to the ED for evaluation of left flank pain that gradually developed over the past two days. Patient states her pain radiates to her left buttock and left leg. Patient admits to experiencing similar symptoms in the past, consistent with her sciatica pain. Patient denies any know trauma/injury, abdominal pain, saddle anesthesia, UTI symptoms, urinary/bowel incontinence, weakness. Time Seen by Provider: 09/11/18 10:43 Chief Complaint (Nursing): Back Pain History Per: Patient History/Exam Limitations: no limitations Onset/Duration Of Symptoms: Days (2), Gradual Current Symptoms Are (Timing): Still Present Quality Of Discomfort: "Pain" Associated Symptoms: denies: Incontinence, New Weakness, New Numbness Additional History Per: Patient Past Medical History Reviewed: Historical Data, Nursing Documentation, Vital Signs Vital Signs: Last Vital Signs Temp 98.1 F 09/11/18 10:19 Pulse 73 09/11/18 10:19 Resp 18 09/11/18 10:19 BP 118/79 09/11/18 10:19 Pulse Ox 100 09/11/18 10:19 - Medical History PMH: Arthritis (LEFT KNEE), Asthma, Fractures (RT.WRIST/ CASTED), Gall Bladder Disease, HTN, Migraine, Seizures, Sleep Apnea Denies: Chronic Kidney Disease Surgical History: Cholecystectomy, Endoscopy - [facility] Procedures EXCISION OF STOMACH, PERCUTANEOUS ENDOSCOPIC APPROACH, VERT (01/04/16) INSPECTION OF UPPER INTESTINAL TRACT, ENDO (01/04/16) Family History: States: Unknown Family Hx - Social History Hx Tobacco Use: No Hx Alcohol Use: No Hx Substance Use: No - Immunization History Hx Tetanus Toxoid Vaccination: No Hx Influenza Vaccination: Yes Hx Pneumococcal Vaccination: Yes Review Of Systems Constitutional: Negative for: Fever, Chills, Weakness Genitourinary: Negative for: Dysuria, Frequency, Incontinence, Hematuria Musculoskeletal: Positive for: Leg Pain (left), Other (left flank pain, left buttock pain ) Skin: Negative for: Rash, Lesions, Jaundice, Bruising Neurological: Negative for: Weakness, Numbness, Other (saddle anesthesia ) Physical Exam - Physical Exam Appears: Well, Non-toxic, No Acute Distress Skin: Normal Color, Warm, No Rash, No Ecchymosis Gastrointestinal/Abdominal: Soft, No Tenderness, No Guarding, No Rebound Back: Other (left flank tenderness that extends down to left lumbar paraspinal area and left gluteal area, overlying the sciatic nerce ) Extremity: Normal ROM, No Calf Tenderness, Capillary Refill (less than 2 seconds ), No Deformity, No Swelling Neurological/Psych: Oriented x3, Normal Speech, Normal Motor, Normal Sensation ED Course And Treatment O2 Sat by Pulse Oximetry: 100 (on RA) Pulse Ox Interpretation: Normal Progress Note: Urinalysis ordered. Bactrim PO, Tramadol PO and Solu-Medrol IM given. On re-eval, pt is afebrile, hemodynamicaly stable. Abd: benign. neuorlogicaly intact. Pt advised and ref. to f/u with PMD in2 -3 days for re- eavl. return if any worsening or new chnages. Disposition Counseled Patient/Family Regarding: Studies Performed, Diagnosis, Need For Followup, Rx Given - Disposition Referrals: Clarisse Lamb MD [Staff Provider] - Disposition: HOME/ ROUTINE Disposition Time: 11:59 Condition: STABLE Additional Instructions: LIght duty, no physical activity, no therapy until pain subside Take medication as prescribed Follow up with PMD, pain management in 2-3 days for re-evaluation and further treatment Return to Ed at any time if any worsening or new changes. Prescriptions: Gabapentin [Neurontin] 300 mg PO Q12 #10 cap Prednisone [Deltasone] 60 mg PO DAILY #9 tablet Sulfamethoxazole/Trimethoprim [Bactrim DS 800 mg-160 mg] 1 tab PO BID #14 tab Instructions: Urinary Tract Infection, Adult (DC), Radiculopathy (DC) Forms: [employer] (Sami) - Clinical Impression Clinical Impression: Lumbar radiculopathy, UTI (urinary tract infection) - PA / SPEED WINDER / Resident Statement MD/DO has reviewed & agrees with the documentation as recorded. - Scribe Statement The provider has reviewed the documentation as recorded by the Scribe (Fabby Saucedo) All medical record entries made by the Scribe were at my direction and personally dictated by me. I have reviewed the chart and agree that the record accurately reflects my personal performance of the history, physical exam, medical decision making, and the department course for this patient. I have also personally directed, reviewed, and agree with the discharge instructions and disposition.
[2018-09-11] MEDS ORDERED: Tmp-Smz 800 mg-160 mg DS Tab PO STA (12:04)
[2018-09-11] MEDS ORDERED: Tmp-Smz 800 mg-160 mg DS Tab ONE (12:13)
== END 2018-09-11 12:21 | disposition home or self-care (01) ==
LOC: C.ER 10:06
DX: N39.0 Urinary tract infection, site not specified (principal); M54.16 Radiculopathy, lumbar region
CPT/HCPCS: 81001; 87086; 96372; 99283; J2920

== ENCOUNTER 2018-09-27 11:28 | Observation (INO) | payer MEDICARE, OTHER ==
[2018-09-27 11:32] VITALS: BMI 43.3
--- NOTE | 2018-09-27 11:50 | C.PDOC ---
History Of Present Illness 48 y/o F c PMHx epilepsy p/w breakthrough seizures today. EMS reports patient has had 15 or so seizures prior to ED arrival. Patient was reportedly on her way to the ED anyway due to have seizures more often lately. Upon arrival to ED, patient with tremor, difficult to speak 1 word answers due to lip tremor but reports that she has not had any recent injuries or medication changes and that her neurologist is Dr. Kimble. Full HPI/ROS unobtainable. Time Seen by Provider: 09/27/18 11:32 Chief Complaint (Nursing): Seizure Past Medical History - Medical History PMH: Arthritis (LEFT KNEE), Asthma, Fractures (RT.WRIST/ CASTED), Gall Bladder Disease, HTN, Migraine, Seizures, Sleep Apnea Denies: Chronic Kidney Disease Surgical History: Cholecystectomy, Endoscopy - [facility] Procedures EXCISION OF STOMACH, PERCUTANEOUS ENDOSCOPIC APPROACH, VERT (01/04/16) INSPECTION OF UPPER INTESTINAL TRACT, ENDO (01/04/16) Family History: States: Unknown Family Hx - Social History Hx Tobacco Use: No Hx Alcohol Use: No Hx Substance Use: No - Immunization History Hx Tetanus Toxoid Vaccination: No Hx Influenza Vaccination: No Hx Pneumococcal Vaccination: No Review Of Systems Review Of Systems: ROS cannot be obtained secondary to pt's inabilty to answer questions. Physical Exam - Physical Exam Additional Physical Exam Comments: gen arms, neck, lips tremor head nc/at eyes perrl ent mmm neck no midline tenderness chest no deformity cv reg rate lungs cta b/l abd soft, nt extremities no tenderness skin no rash neuro see HPI ED Course And Treatment - Laboratory Results Result Diagrams: 09/27/18 12:40 09/27/18 12:40 - Other Rad CXR X-Ray: Viewed By Me, Read By Radiologist Interpretation: Date of service: 09/27/2018. HISTORY: seizure. COMPARISON: 12/09/2017. TECHNIQUE: 1 view obtained. FINDINGS: LUNGS: No active pulmonary disease. PLEURA: No significant pleural effusion identified, no pneumothorax apparent. CARDIOVASCULAR: No aortic atherosclerotic calcification present. Normal cardiac size. No pulmonary vascular congestion. OSSEOUS STRUCTURES: No significant abnormalities. VISUALIZED UPPER ABDOMEN: Normal. OTHER FINDINGS: None. IMPRESSION: No active disease. - CT Scan/US Head CT Other Rad Studies (CT/US): Read By Radiologist, Radiology Report Reviewed CT/US Interpretation: Date of service: 09/27/2018. PROCEDURE: CT HEAD WITHOUT CONTRAST. HISTORY: seizures. COMPARISON: 12/09/2017. TECHNIQUE: Axial computed tomography images were obtained through the head/brain without intravenous contrast. Examination limited by patient motion artifact, particularly obscuring the posterior fossa. Radiation dose: Total exam DLP = 1208.98 mGy-cm. This CT exam was performed using one or more of the following dose reduction techniques: Automated exposure control, adjustment of the mA and/or kV according to patient size, and/or use of iterative reconstruction technique. FINDINGS: HEMORRHAGE: No intracranial hemorrhage. BRAIN: No mass effect or edema. No atrophy or chronic microvascular ischemic changes. VENTRICLES: Unremarkable. No hydrocephalus. CALVARIUM: Unremarkable. PARA NASAL SINUSES: Unremarkable as visualized. No significant inflammatory changes. MASTOID AIR CELLS: Unremarkable as visualized. No inflammatory changes. OTHER FINDINGS: None. IMPRESSION: Normal CT of the Head. No intracranial mass, hemorrhage or evidence of acute infarct. Technically limited as above. Medical Decision Making Medical Decision Making: Plan: * Ativan * CT Head * Blood work * CXR * Urine Culture * Urinalysis Patient continues to be obtunded s/p seizures and benzo administration but will respond to simple questions. Numerous seizures lately and prior to arrival today, will keep for observation on telemetry. Disposition - Disposition Disposition: HOSPITALIZED Disposition Time: 13:36 Condition: FAIR Forms: [employer]mon[employer]chelle (Colombian) - Clinical Impression Clinical Impression: Recurrent seizures
--- NOTE | 2018-09-27 12:47 | RAD ---
Date of service: 09/27/2018 HISTORY: seizure COMPARISON: 12/09/2017 TECHNIQUE: 1 view obtained. FINDINGS: LUNGS: No active pulmonary disease. PLEURA: No significant pleural effusion identified, no pneumothorax apparent. CARDIOVASCULAR: No aortic atherosclerotic calcification present. Normal cardiac size. No pulmonary vascular congestion. OSSEOUS STRUCTURES: No significant abnormalities. VISUALIZED UPPER ABDOMEN: Normal. OTHER FINDINGS: None. IMPRESSION: No active disease.
[2018-09-27 12:50] LABS: BASO # 0.1 K/uL (0.0-0.2); BASO % 0.7 % (0.0-2.0); EOS # 0.1 K/uL (0.0-0.7); EOS % 1.2 % (0.0-4.0); HEMOGLOBIN 12.2 g/dL (11.0-16.0); LYMPH # 1.6 K/uL (1.0-4.3); LYMPH % 21.5 % (20.0-40.0); MEAN CELL VOLUME 80.2 fL (81.0-99.0); MEAN CORPUSCULAR HEMOGLOBIN 25.6 pg (27.0-31.0); MEAN PLATELET VOLUME 9.1 fL (7.2-11.7); MONO # 0.6 K/uL (0.0-0.8); MONO % 8.2 % (0.0-10.0); NEUT % 68.4 % (50.0-75.0); RBC 4.75 Mil/uL (3.80-5.20); RED CELL DISTRIBUTION WIDTH 15.8 % (11.5-14.5); WHITE BLOOD COUNT 7.3 K/uL (4.8-10.8)
[2018-09-27 13:00] LABS: ALB/GLOB RATIO 1.2 (1.0-2.1); ALT/SGPT 25 U/L (9-52); AST/SGOT 20 U/L (14-36); BLOOD UREA NITROGEN 11 mg/dL (7-17); CALCIUM 9.2 mg/dl (8.6-10.4); GFR NON-AFRICAN AMERICAN > 60
--- NOTE | 2018-09-27 13:25 | CT ---
Date of service: 09/27/2018 PROCEDURE: CT HEAD WITHOUT CONTRAST. HISTORY: seizures COMPARISON: 12/09/2017 TECHNIQUE: Axial computed tomography images were obtained through the head/brain without intravenous contrast. Examination limited by patient motion artifact, particularly obscuring the posterior fossa. Radiation dose: Total exam DLP = 1208.98 mGy-cm. This CT exam was performed using one or more of the following dose reduction techniques: Automated exposure control, adjustment of the mA and/or kV according to patient size, and/or use of iterative reconstruction technique. FINDINGS: HEMORRHAGE: No intracranial hemorrhage. BRAIN: No mass effect or edema. No atrophy or chronic microvascular ischemic changes. VENTRICLES: Unremarkable. No hydrocephalus. CALVARIUM: Unremarkable. PARANASAL SINUSES: Unremarkable as visualized. No significant inflammatory changes. MASTOID AIR CELLS: Unremarkable as visualized. No inflammatory changes. OTHER FINDINGS: None. IMPRESSION: Normal CT of the Head. No intracranial mass, hemorrhage or evidence of acute infarct. Technically limited as above.
[2018-09-27 14:58] LABS: SQUAMOUS EPITHIAL 2 /hpf (0-5); URINE BILIRUBIN NEGATIVE (NEGATIVE); URINE BLOOD NEGATIVE (NEGATIVE); URINE CLARITY Hazy (Clear); URINE COLOR Yellow (YELLOW); URINE GLUCOSE (UA) NORMAL (Normal); URINE LEUKOCYTE ESTERASE 2+ Leu/uL (Negative); URINE PROTEIN NEGATIVE (NEGATIVE)
[2018-09-27 15:15] LABS: BARBITURATES, UR NEGATIVE (NEGATIVE); OPIATES, UR NEGATIVE (NEGATIVE); PHENCYCLIDINE, UR NEGATIVE (NEGATIVE)
[2018-09-27 15:28] LABS: BENZODIAZEPINES, UR POSITIVE (NEGATIVE)
--- NOTE | 2018-09-27 16:30 | CP.PCM.HP ---
History of Present Illness - History of Present Illness History of Present Illness: H&P: 48 year old female with past medical history of epilepsy, migraines, sleep apnea, HTN, obesity, arthiritis, asthma presented to hospital for break through seizures. Patient brought to hospital by EMS and given 4 mg IV ativan en route for seizures. In ED, patient received another 2 mg IV of Ativan. At time of exam, pt was stil lethargic 2/2 medication side effect but able to answer questions. Per ED note, pt had about 15 seizures en route to ED. Patient states that she is compliant with her medications. In ED, CT of head is negative. She states she followed with her neurologist, Dr. Kimble last week and was told to get a sleep study for BRETT. Patient also states that she fell and landed on her left hip a few days ago. Currently, pt is lethargic 2/2 medications but is able to answer questions and follow commands. Patient denies having CP, SOB, abd pain, N/V/D/C, F/C. Patient c/o left hip pain on palpation. Also c/o DEMPSEY. PMD: Dr. Clarisse Lamb PMHx: seizures, migraines, sleep apnea, arthritis, HTN, and asthma SurgHx: Cholecystectomy 2001; Left knee surgery w/Dr. Brown 04/2017; Bariatric surgery 2015. FamHx: Sister- MA (); Sister- Breast cancer, asthma (); Brother- Meningitis (), Brother- Cirrhosis () SocHx: Denies tobacco, alcohol, and drug use; lives with two children in [place] [facility] unemployed (disability) Allergies: NKDA Pharmacy: must confirm medications with [facility] Present on Admission - Present on Admission Any Indicators Present on Admission: No Review of Systems - Constitutional Constitutional: absent: Chills, Fever - EENT Eyes: absent: Blurred Vision, Change in Vision Nose/Mouth/Throat: absent: Nasal Congestion, Nasal Discharge, Sore Throat - Cardiovascular Cardiovascular: absent: Chest Pain, Dyspnea, Dyspnea on Exertion, Edema, Pedal Edema - Respiratory Respiratory: absent: Cough, Dyspnea, Dyspnea on Exertion, Wheezing, Snoring - Gastrointestinal Gastrointestinal: absent: Abdominal Pain, Constipation, Diarrhea, Nausea, Vomiting - Genitourinary Genitourinary: absent: Dysuria, Urinary Frequency, Urinary Urgency - Musculoskeletal Musculoskeletal: absent: Numbness, Tingling - Integumentary Integumentary: absent: Acne, Lesions, Rash - Neurological Neurological: Convulsions. absent: Dizziness, Numbness, Headaches, Syncope, Tingling, Weakness - Psychiatric Psychiatric: absent: Anxiety, Depression Past Patient History - Infectious Disease Hx of Infectious Diseases: None - Past Medical History & Family History Past Medical History?: Yes - Past Social History Smoking Status: Never Smoked Chewing Tobacco Use: No Cigar Use: No Alcohol: None Drugs: Denies Home Situation {Lives}: With Family - CARDIAC Hx Hypertension: Yes - PULMONARY Hx Asthma: Yes Hx Sleep Apnea: Yes - NEUROLOGICAL Hx Migraine: Yes Hx Seizures: Yes - HEENT Other/Comment: SLEEPAPNEA & NARCOLEPSY - RENAL Hx Chronic Kidney Disease: No - ENDOCRINE/METABOLIC Hx Endocrine Disorders: No - HEMATOLOGICAL/ONCOLOGICAL Hx Blood Disorders: No - INTEGUMENTARY Hx Dermatological Problems: Yes Hx Eczema: Yes - MUSCULOSKELETAL/RHEUMATOLOGICAL Hx Arthritis: Yes (LEFT KNEE) Hx Fractures: Yes (RT.WRIST/ CASTED) - GASTROINTESTINAL Hx Gall Bladder Disease: Yes - GENITOURINARY/GYNECOLOGICAL Hx Genitourinary Disorders: No - PSYCHIATRIC Hx Substance Use: No - SURGICAL HISTORY Hx Cholecystectomy: Yes - ANESTHESIA Hx Anesthesia: Yes Hx Anesthesia Reactions: Yes (Nausea) Hx Malignant Hyperthermia: No Meds Allergies/Adverse Reactions: Allergies Allergy/AdvReac Type Severity Reaction Status Date / Time acetaminophen [From Percocet] Allergy Verified 09/27/18 11:31 morphine Allergy Verified 09/27/18 11:31 oxycodone [From Percocet] Allergy Verified 09/27/18 11:31 Physical Exam - Constitutional Appears: Non-toxic, No Acute Distress - Head Exam Head Exam: ATRAUMATIC, NORMOCEPHALIC - Eye Exam Eye Exam: EOMI Pupil Exam: NORMAL ACCOMODATION, PERRL - ENT Exam ENT Exam: Mucous Membranes Moist - Respiratory Exam Respiratory Exam: Clear to Auscultation Bilateral. absent: Accessory Muscle Use , Rales, Rhonchi, Wheezes, Respiratory Distress - Cardiovascular Exam Cardiovascular Exam: REGULAR RHYTHM, +S1, +S2. absent: Gallop, Rubs, Systolic Murmur - GI/Abdominal Exam GI & Abdominal Exam: Normal Bowel Sounds, Soft. absent: Distended, Firm, Guarding, Rigid, Tenderness - Extremities Exam Extremities exam: Negative for: pedal edema, tenderness Additional comments: left hip tenderness - Neurological Exam Neurological exam: Reflexes Normal Additional comments: A&Ox3. nswering questions but lethargic 2/2 medications. Following commands. Negative Babinski. 2/4 patellar B/L. moving all 4 extremities. normal sensation in all for extremities. - Psychiatric Exam Psychiatric exam: Normal Mood - Skin Skin Exam: Dry, Intact, Normal Color, Warm Results - Vital Signs Recent Vital Signs: Last Vital Signs Temp 97.7 F 09/27/18 11:48 Pulse 77 09/27/18 15:49 Resp 16 09/27/18 15:49 BP 131/68 09/27/18 15:49 Pulse Ox 99 09/27/18 15:49 - Labs Result Diagrams: 09/27/18 12:40 09/27/18 12:40 Labs: Laboratory Results - last 24 hr 09/27/18 09/27/18 09/27/18 11:37 12:40 12:40 WBC 7.3 RBC 4.75 Hgb 12.2 Hct 38.1 MCV 80.2 L D MCH 25.6 L MCHC 32.0 L RDW 15.8 H Plt Count 257 MPV 9.1 Neut % (Auto) 68.4 Lymph % (Auto) 21.5 [place] % (Auto) 8.2 Eos % (Auto) 1.2 Baso % (Auto) 0.7 Neut # (Auto) 5.0 Lymph # (Auto) 1.6 [place] # (Auto) 0.6 Eos # (Auto) 0.1 Baso # (Auto) 0.1 Sodium 139 Potassium 3.6 Chloride 110 H Carbon Dioxide 18 L Anion Gap 15 BUN 11 Creatinine 0.7 Est GFR ( Amer) > 60 Est GFR (Non-Af Amer) > 60 POC Glucose (mg/dL) 107 Random Glucose 97 Calcium 9.2 Phosphorus 3.8 Magnesium 2.0 Total Bilirubin 0.3 AST 20 ALT 25 Alkaline Phosphatase 53 Total Protein 7.3 Albumin 4.0 Globulin 3.3 Albumin/Globulin Ratio 1.2 Beta HCG, Quant < 2.39 Urine Color Urine Clarity Urine pH Ur Specific [place] Urine Protein Urine Glucose (UA) Urine Ketones Urine Blood Urine Nitrate Urine Bilirubin Urine Urobilinogen Ur Leukocyte Esterase Urine WBC (Auto) Urine RBC (Auto) Ur Squamous Epith Cells Urine Opiates Screen Urine Methadone Screen Ur Barbiturates Screen Ur Phencyclidine Scrn Ur Amphetamines Screen U Benzodiazepines Scrn U Oth Cocaine Metabols U Cannabinoids Screen 09/27/18 09/27/18 14:46 14:46 WBC RBC Hgb Hct MCV MCH MCHC RDW Plt Count MPV Neut % (Auto) Lymph % (Auto) [place] % (Auto) Eos % (Auto) Baso % (Auto) Neut # (Auto) Lymph # (Auto) [place] # (Auto) Eos # (Auto) Baso # (Auto) Sodium Potassium Chloride Carbon Dioxide Anion Gap BUN Creatinine Est GFR ( Amer) Est GFR (Non-Af Amer) POC Glucose (mg/dL) Random Glucose Calcium Phosphorus Magnesium Total Bilirubin AST ALT Alkaline Phosphatase Total Protein Albumin Globulin Albumin/Globulin Ratio Beta HCG, Quant Urine Color Yellow Urine Clarity Hazy Urine pH 6.0 Ur Specific [place] 1.021 Urine Protein Negative Urine Glucose (UA) Normal Urine Ketones Negative Urine Blood Negative Urine Nitrate Negative Urine Bilirubin Negative Urine Urobilinogen 2.0 H Ur Leukocyte Esterase 2+ H Urine WBC (Auto) 26 H Urine RBC (Auto) 2 Ur Squamous Epith Cells 2 Urine Opiates Screen Negative Urine Methadone Screen Negative Ur Barbiturates Screen Negative Ur Phencyclidine Scrn Negative Ur Amphetamines Screen Negative U Benzodiazepines Scrn Positive U Oth Cocaine Metabols Negative U Cannabinoids Screen Negative Assessment & Plan - Assessment and Plan (Free Text) Assessment: 48 year old with past medical history of seizures, migraines, sleep apnea, art hritis, HTN, and asthma is admitted for break through seizures Break through seizures - CT of head negative - Pt received 6 mg IV Ativan - started topomax 200 mg bid - Neurology, Dr. Kimble is consulted. Concern for pseudoseizures - Will check 1 hour EEG - Will check CPK - Will check dilantin level - Will check ABG (with concern for hypercarbic anoxia) - Will check TSH, T4, Vitamin B12, Vitamin B1 and folate - Fall precautions, seizure precautions Sleep apnea - Concern for hypercarbic anoxia - Will check ABG Obesity - Hx of bariatric surgery - Will check vitamin B12, folate - Continue daily multivitamin - Will check Hgb A1c, lipid panel, TSH and free T4 Fall - Pt reports falling on left hip with some bruising - Will check B/L hip and pelvis 2 view x ray HTN - Continue home medication Norvasc 10 mg po qd Asthma - NC prn - duoneb q6 prn Prophylaxis - SCDs, lovenox - no indication for GI prophylaxis Discussed with attending, Dr. Melton - Date & Time Date: 09/27/18 Time: 17:21
[2018-09-27 16:42] VITALS: O2SAT 100
[2018-09-27] MEDS ORDERED: Albuterol-Ipratrop 3 mg / 0.5 (3 ml) UD INH PRN (17:25)
[2018-09-27 18:00] LABS: ARTERIAL BLOOD GAS HCO3 20.4 mmol/L (21-28); ARTERIAL BLOOD GAS O2 SAT 98.8 % (95-98); ARTERIAL BLOOD GAS PCO2 31 mm/Hg (35-45); ARTERIAL BLOOD GAS PH 7.38 (7.35-7.45); ARTERIAL BLOOD GAS PO2 130 mm/Hg (80-100); ARTERIAL BLOOD GAS TCO2 19.3 mmol/L (22-28)
[2018-09-27] MEDS: Sodium Chloride 0.9% 1,000 ML IV SCH (18:22)
[2018-09-27] MEDS: Enoxaparin 40 mg Syringe SC SCH (18:22)
[2018-09-27 21:27] LABS: FOLATE 6.3 ng/mL
[2018-09-28 01:12] VITALS: RESP 20
[2018-09-28 06:52] LABS: ABG ALLEN TEST POS; ARTERIAL BLOOD GAS HCO3 19.5 mmol/L (21-28); ARTERIAL BLOOD GAS HEMOGLOBIN 11.4 g/dL (11.7-17.4); ARTERIAL BLOOD GAS O2 SAT 98.2 % (95-98); ARTERIAL BLOOD GAS PCO2 31 mm/Hg (35-45); ARTERIAL BLOOD GAS PH 7.36 (7.35-7.45); ARTERIAL BLOOD GAS PO2 107 mm/Hg (80-100); ARTERIAL BLOOD GAS TCO2 18.5 mmol/L (22-28)
--- NOTE | 2018-09-28 07:08 | CP.PCM.CON ---
History of Present Illness - History of Present Illness History of Present Illness: CONSULTATION DICTATED BREAK THROUGH SEIZURES SUPERIMPOSED PSEUDO SEIZURES OBESITY HYPOVENTILATION SYNDROME WITH BRETT CHECK EEG CORRECT ELECTROLYTES OOB TPX 200 MG BID HYDRATION Past Patient History - Infectious Disease Hx of Infectious Diseases: None - Past Medical History & Family History Past Medical History?: Yes - Past Social History Smoking Status: Never Smoked Chewing Tobacco Use: No Cigar Use: No Alcohol: None Drugs: Denies Home Situation {Lives}: With Family - CARDIAC Hx Hypertension: Yes - PULMONARY Hx Asthma: Yes Hx Sleep Apnea: Yes - NEUROLOGICAL Hx Migraine: Yes Hx Seizures: Yes - HEENT Other/Comment: SLEEPAPNEA & NARCOLEPSY - RENAL Hx Chronic Kidney Disease: No - ENDOCRINE/METABOLIC Hx Endocrine Disorders: No - HEMATOLOGICAL/ONCOLOGICAL Hx Blood Disorders: No - INTEGUMENTARY Hx Dermatological Problems: Yes Hx Eczema: Yes - MUSCULOSKELETAL/RHEUMATOLOGICAL Hx Arthritis: Yes (LEFT KNEE) Hx Fractures: Yes (RT.WRIST/ CASTED) - GASTROINTESTINAL Hx Gall Bladder Disease: Yes - GENITOURINARY/GYNECOLOGICAL Hx Genitourinary Disorders: No - PSYCHIATRIC Hx Substance Use: No - SURGICAL HISTORY Hx Cholecystectomy: Yes - ANESTHESIA Hx Anesthesia: Yes Hx Anesthesia Reactions: Yes (Nausea) Hx Malignant Hyperthermia: No Meds Allergies/Adverse Reactions: Allergies Allergy/AdvReac Type Severity Reaction Status Date / Time acetaminophen [From Percocet] Allergy Verified 09/27/18 11:31 morphine Allergy Verified 09/27/18 11:31 oxycodone [From Percocet] Allergy Verified 09/27/18 11:31 - Medications Medications: Current Medications Albuterol/Ipratropium (Duoneb 3 Mg/0.5 Mg (3 Ml) Ud) 3 ml INH RQ6 PRN PRN Reason: Shortness of Breath Amlodipine Besylate (Norvasc) 10 mg PO DAILY [facility] Enoxaparin Sodium (Lovenox) 40 mg SC DAILY [facility] Last Admin: 09/27/18 18:22 Dose: 40 mg Sodium Chloride (Sodium Chloride 0.9%) 1,000 mls @ 100 mls/hr IV .Q10H [facility] Last Admin: 09/27/18 18:22 Dose: 100 mls/hr Topiramate (Topamax) 200 mg PO BID [facility] Last Admin: 09/27/18 18:22 Dose: 200 mg Results - Vital Signs Recent Vital Signs: Last Vital Signs Temp 98.1 F 09/28/18 00:00 Pulse 78 09/28/18 00:00 Resp 20 09/28/18 00:00 BP 91/61 L 09/28/18 00:00 Pulse Ox 100 09/28/18 05:00 - Labs Result Diagrams: 09/27/18 12:40 09/27/18 12:40 Labs: Laboratory Results - last 24 hr 09/27/18 09/27/18 09/27/18 11:37 12:40 12:40 WBC 7.3 RBC 4.75 Hgb 12.2 Hct 38.1 MCV 80.2 L D MCH 25.6 L MCHC 32.0 L RDW 15.8 H Plt Count 257 MPV 9.1 Neut % (Auto) 68.4 Lymph % (Auto) 21.5 [place] % (Auto) 8.2 Eos % (Auto) 1.2 Baso % (Auto) 0.7 Neut # (Auto) 5.0 Lymph # (Auto) 1.6 [place] # (Auto) 0.6 Eos # (Auto) 0.1 Baso # (Auto) 0.1 Puncture Site pCO2 pO2 HCO3 ABG pH ABG Total CO2 ABG O2 Saturation ABG Base Excess ABG Hemoglobin ABG Carboxyhemoglobin POC ABG HHb (Measured) ABG Methemoglobin [place] Test A-a O2 Difference Respiratory Index Hgb O2 Saturation Liter Flow FiO2 Sodium 139 Potassium 3.6 Chloride 110 H Carbon Dioxide 18 L Anion Gap 15 BUN 11 Creatinine 0.7 Est GFR ( Amer) > 60 Est GFR (Non-Af Amer) > 60 POC Glucose (mg/dL) 107 Random Glucose 97 Calcium 9.2 Phosphorus 3.8 Magnesium 2.0 Total Bilirubin 0.3 AST 20 ALT 25 Alkaline Phosphatase 53 Total Creatine Kinase Total Protein 7.3 Albumin 4.0 Globulin 3.3 Albumin/Globulin Ratio 1.2 Vitamin B12 Folate Beta HCG, Quant < 2.39 Urine Color Urine Clarity Urine pH Ur Specific [place] Urine Protein Urine Glucose (UA) Urine Ketones Urine Blood Urine Nitrate Urine Bilirubin Urine Urobilinogen Ur Leukocyte Esterase Urine WBC (Auto) Urine RBC (Auto) Ur Squamous Epith Cells Urine Opiates Screen Urine Methadone Screen Ur Barbiturates Screen Phenytoin Ur Phencyclidine Scrn Ur Amphetamines Screen U Benzodiazepines Scrn U Oth Cocaine Metabols U Cannabinoids Screen 0409/27/18 09/27/18 14:46 14:46 16:41 WBC RBC Hgb Hct MCV MCH MCHC RDW Plt Count MPV Neut % (Auto) Lymph % (Auto) [place] % (Auto) Eos % (Auto) Baso % (Auto) Neut # (Auto) Lymph # (Auto) [place] # (Auto) Eos # (Auto) Baso # (Auto) Puncture Site pCO2 pO2 HCO3 ABG pH ABG Total CO2 ABG O2 Saturation ABG Base Excess ABG Hemoglobin ABG Carboxyhemoglobin POC ABG HHb (Measured) ABG Methemoglobin [place] Test A-a O2 Difference Respiratory Index Hgb O2 Saturation Liter Flow FiO2 Sodium Potassium Chloride Carbon Dioxide Anion Gap BUN Creatinine Est GFR ( Amer) Est GFR (Non-Af Amer) POC Glucose (mg/dL) 77 Random Glucose Calcium Phosphorus Magnesium Total Bilirubin AST ALT Alkaline Phosphatase Total Creatine Kinase Total Protein Albumin Globulin Albumin/Globulin Ratio Vitamin B12 Folate Beta HCG, Quant Urine Color Yellow Urine Clarity Hazy Urine pH 6.0 Ur Specific [place] 1.021 Urine Protein Negative Urine Glucose (UA) Normal Urine Ketones Negative Urine Blood Negative Urine Nitrate Negative Urine Bilirubin Negative Urine Urobilinogen 2.0 H Ur Leukocyte Esterase 2+ H Urine WBC (Auto) 26 H Urine RBC (Auto) 2 Ur Squamous Epith Cells 2 Urine Opiates Screen Negative Urine Methadone Screen Negative Ur Barbiturates Screen Negative Phenytoin Ur Phencyclidine Scrn Negative Ur Amphetamines Screen Negative U Benzodiazepines Scrn Positive U Oth Cocaine Metabols Negative U Cannabinoids Screen Negative 09/27/18 09/27/18 09/27/18 17:57 19:51 19:51 WBC RBC Hgb Hct MCV MCH MCHC RDW Plt Count MPV Neut % (Auto) Lymph % (Auto) [place] % (Auto) Eos % (Auto) Baso % (Auto) Neut # (Auto) Lymph # (Auto) [place] # (Auto) Eos # (Auto) Baso # (Auto) Puncture Site Rra pCO2 31 L pO2 130 H HCO3 20.4 L ABG pH 7.38 ABG Total CO2 19.3 L ABG O2 Saturation 98.8 H ABG Base Excess -5.8 L ABG Hemoglobin 12.0 ABG Carboxyhemoglobin 1.2 POC ABG HHb (Measured) 1.2 ABG Methemoglobin 1.2 [place] Test Na A-a O2 Difference 67.0 Respiratory Index 0.5 Hgb O2 Saturation 96.4 Liter Flow FiO2 33.0 Sodium Potassium Chloride Carbon Dioxide Anion Gap BUN Creatinine Est GFR ( Amer) Est GFR (Non-Af Amer) POC Glucose (mg/dL) Random Glucose Calcium Phosphorus Magnesium Total Bilirubin AST ALT Alkaline Phosphatase Total Creatine Kinase 163 H Total Protein Albumin Globulin Albumin/Globulin Ratio Vitamin B12 357 Folate 6.3 Beta HCG, Quant Urine Color Urine Clarity Urine pH Ur Specific [place] Urine Protein Urine Glucose (UA) Urine Ketones Urine Blood Urine Nitrate Urine Bilirubin Urine Urobilinogen Ur Leukocyte Esterase Urine WBC (Auto) Urine RBC (Auto) Ur Squamous Epith Cells Urine Opiates Screen Urine Methadone Screen Ur Barbiturates Screen Phenytoin < 3.0 L Ur Phencyclidine Scrn Ur Amphetamines Screen U Benzodiazepines Scrn U Oth Cocaine Metabols U Cannabinoids Screen 09/27/18 09/28/18 09/28/18 21:10 06:25 06:48 WBC RBC Hgb Hct MCV MCH MCHC RDW Plt Count MPV Neut % (Auto) Lymph % (Auto) [place] % (Auto) Eos % (Auto) Baso % (Auto) Neut # (Auto) Lymph # (Auto) [place] # (Auto) Eos # (Auto) Baso # (Auto) Puncture Site R rad pCO2 31 L pO2 107 H HCO3 19.5 L ABG pH 7.36 ABG Total CO2 18.5 L ABG O2 Saturation 98.2 H ABG Base Excess -6.9 L ABG Hemoglobin 11.4 L ABG Carboxyhemoglobin 1.3 POC ABG HHb (Measured) 1.8 ABG Methemoglobin 0.7 [place] Test Pos A-a O2 Difference Respiratory Index Hgb O2 Saturation 96.2 Liter Flow 2.0 FiO2 Sodium Potassium Chloride Carbon Dioxide Anion Gap BUN Creatinine Est GFR ( Amer) Est GFR (Non-Af Amer) POC Glucose (mg/dL) 110 91 Random Glucose Calcium Phosphorus Magnesium Total Bilirubin AST ALT Alkaline Phosphatase Total Creatine Kinase Total Protein Albumin Globulin Albumin/Globulin Ratio Vitamin B12 Folate Beta HCG, Quant Urine Color Urine Clarity Urine pH Ur Specific [place] Urine Protein Urine Glucose (UA) Urine Ketones Urine Blood Urine Nitrate Urine Bilirubin Urine Urobilinogen Ur Leukocyte Esterase Urine WBC (Auto) Urine RBC (Auto) Ur Squamous Epith Cells Urine Opiates Screen Urine Methadone Screen Ur Barbiturates Screen Phenytoin Ur Phencyclidine Scrn Ur Amphetamines Screen U Benzodiazepines Scrn U Oth Cocaine Metabols U Cannabinoids Screen
--- NOTE | 2018-09-28 08:05 | CP.PCM.PN ---
<Travis Chowdhury - Last Filed: 09/28/18 11:14> Subjective - Date & Time of Evaluation Date of Evaluation: 09/28/18 Time of Evaluation: 08:05 - Subjective Subjective: PGY-1 Medicine Progress Note for Dr. Johnson Patient seen and examined at bedside this AM, in no acute distress. No acute overnight events reported. Patient states her seizures have been under control up until a few days prior to admission. She has difficulty recalling how many seizures she has had, does not seizure episodes prior to arrival. She endorses increasing forgetfulness and fatigue. She also complains of L sided weakness and endorses having fallen in the past 2/2 to her weakness. She uses rolling walker at home to ambulate. 12 pt ROS reviewed and otherwise negative. Objective - Vital Signs/Intake and Output Vital Signs (last 24 hours): Temp Pulse Resp BP Pulse Ox 98.1 F 78 20 91/61 L 100 09/28/18 00:00 09/28/18 00:00 09/28/18 00:00 09/28/18 00:00 09/28/18 05:00 - Medications Medications: Current Medications Albuterol/Ipratropium (Duoneb 3 Mg/0.5 Mg (3 Ml) Ud) 3 ml INH RQ6 PRN PRN Reason: Shortness of Breath Amlodipine Besylate (Norvasc) 10 mg PO DAILY [facility] Enoxaparin Sodium (Lovenox) 40 mg SC DAILY [facility] Last Admin: 09/27/18 18:22 Dose: 40 mg Sodium Chloride (Sodium Chloride 0.9%) 1,000 mls @ 100 mls/hr IV .Q10H [facility] Last Admin: 09/27/18 18:22 Dose: 100 mls/hr Topiramate (Topamax) 200 mg PO BID [facility] Last Admin: 09/27/18 18:22 Dose: 200 mg - Labs Labs: 09/27/18 12:40 09/27/18 12:40 - Constitutional Appears: No Acute Distress, Other (slightly somnolent) - Head Exam Head Exam: ATRAUMATIC, NORMAL INSPECTION, NORMOCEPHALIC - Eye Exam Eye Exam: EOMI, Normal appearance - ENT Exam ENT Exam: Mucous Membranes Moist, Normal Exam - Neck Exam Neck Exam: Full ROM, Normal Inspection. absent: Lymphadenopathy, Tenderness - Respiratory Exam Respiratory Exam: Clear to Ausculation Bilateral, NORMAL BREATHING PATTERN. absent: Accessory Muscle Use, Rales, Rhonchi, Wheezes, Respiratory Distress, Stridor - Cardiovascular Exam Cardiovascular Exam: REGULAR RHYTHM, +S1, +S2 - GI/Abdominal Exam GI & Abdominal Exam: Soft, Normal Bowel Sounds. absent: Distended, Firm, Guarding, Rigid, Tenderness, Rebound Additional comments: obese - Extremities Exam Extremities Exam: Normal Capillary Refill, Normal Inspection. absent: Calf Tenderness, Pedal Edema Additional comments: Muscle strength LUE, LLE 3/5 no sensory deficits noted - Neurological Exam Neurological Exam: Alert, Awake, Oriented x3 - Skin Skin Exam: Dry, Intact, Normal Color, Warm Assessment and Plan - Assessment and Plan (Free Text) Assessment: 48 yo female with pmhx of seizures, migraines, sleep apnea, arthritis, HTN, and asthma is admitted for break through seizures Plan: Seizure disorder -CT head w/o contrast: no acute intracranial pathology evident. No chronic changes noted. -CPK: 163 -TSH, free T4 -Folate, Vitamin B12 levels wnl -Neurology (Dr. Kimble) consulted -concern for pseudoseizures -f/u 1 hr EEG -Topiramate 200 mg PO BID -fall precautions, seizure precautions, neurochecks Sleep apnea -ABG negative for hypercapneic hypoxia -Pulmonology (Dr. Hardy) consulted Obesity -Pt has hx of bariatric surgery -vitamin B12, folate WNL -c/w daily multivitamin -A1c -lipid panel -TSH and free T4 Hx of fall -Pt reports falling on left hip with some bruising -CXR (09/27): no acute findings -XR hip w/ pelvis b/l: moderate narrowing of b/l hip joint with subchondral sclerosis and osteophytosis. Degenerative changes greater than expected for patient's age. If pain persist, consider correlation with MRI Hx of HTN -Norvasc 10 mg PO daily Hx of asthma -duonebs 3q6 prn -O2 via NC prn PPx, Diet, Disposition -DVT ppx: scds, lovenox 40 mg SC daily -GI ppx: not indicated at this time -Diet: HHD Case discussed with Dr. Elizabeth Chowdhury DO, PGY-1 <Baldomero Johnson - Last Filed: 09/28/18 13:51> Objective - Vital Signs/Intake and Output Vital Signs (last 24 hours): Temp Pulse Resp BP Pulse Ox 97.2 F L 89 20 104/73 100 09/28/18 08:00 09/28/18 11:15 09/28/18 08:00 09/28/18 08:00 09/28/18 08:00 - Medications Medications: Current Medications Albuterol/Ipratropium (Duoneb 3 Mg/0.5 Mg (3 Ml) Ud) 3 ml INH RQ6 PRN PRN Reason: Shortness of Breath Amlodipine Besylate (Norvasc) 10 mg PO DAILY [facility] Last Admin: 09/28/18 09:39 Dose: 10 mg Enoxaparin Sodium (Lovenox) 40 mg SC DAILY [facility] Last Admin: 09/28/18 09:38 Dose: 40 mg Sodium Chloride (Sodium Chloride 0.9%) 1,000 mls @ 100 mls/hr IV .Q10H [facility] Last Admin: 09/27/18 18:22 Dose: 100 mls/hr Topiramate (Topamax) 200 mg PO BID [facility] Last Admin: 09/28/18 09:39 Dose: 200 mg - Labs Labs: 09/28/18 12:29 09/28/18 12:29 Attending/Attestation - Attestation I have personally seen and examined this patient.: Yes I have fully participated in the care of the patient.: Yes I have reviewed all pertinent clinical information, including history, physical exam and plan: Yes Notes (Text): 09/28/18 13:48 Medical attending: Patient was seen and examined by me. Reviewed the above note by the medical claims assistant and agree with the above Earlier this morning patient had a video EEG done Also was seen by her neurologist as well and started on topamax. She explains that she still has some dizziness at this time and has not tried walking long distances yet. Baldomero Johnson
[2018-09-28] MEDS: Enoxaparin 40 mg Syringe SC SCH (09:38)
[2018-09-28] MEDS ORDERED: NORVASC PO SCH (10:00)
--- NOTE | 2018-09-28 10:46 | RAD ---
Pelvis and bilateral hips two views History: Trauma. Comparison: None available. Findings: Moderate narrowing of the bilateral hip joints with subchondral sclerosis and osteophytosis. On the frontal view, a lucency through the femoral neck on the frogleg lateral views of the right hip does not persist on the frontal views and may be artifact. Productive change adjacent to the left greater trochanter. Degenerative changes in the lower lumbar spine and pubic symphysis. Calcified phleboliths in the pelvis. Impression: Degenerative changes, greater than expected for the patient's stated age. If pain persists, consider correlation with MRI.
--- NOTE | 2018-09-28 12:16 | CARD ---
APPROVED REPORT Date of service: 09/27/2018 EKG Measurement Heart [id number] <Conclusion> Normal sinus rhythm Possible Left atrial enlargement Borderline ECG
[2018-09-28 12:33] LABS: BASO # 0.1 K/uL (0.0-0.2); BASO % 0.9 % (0.0-2.0); EOS # 0.1 K/uL (0.0-0.7); EOS % 2.1 % (0.0-4.0); LYMPH # 1.5 K/uL (1.0-4.3); LYMPH % 24.5 % (20.0-40.0); MEAN CELL VOLUME 80.3 fL (81.0-99.0); MEAN CORPUSCULAR HEMOGLOBIN 25.5 pg (27.0-31.0); MEAN CORPUSCULAR HGB CONC 31.8 g/dL (33.0-37.0); MEAN PLATELET VOLUME 9.3 fL (7.2-11.7); MONO # 0.5 K/uL (0.0-0.8); MONO % 9.1 % (0.0-10.0); NEUT # 3.8 K/uL (1.8-7.0); NEUT % 63.4 % (50.0-75.0); RBC 4.69 Mil/uL (3.80-5.20); RED CELL DISTRIBUTION WIDTH 16.1 % (11.5-14.5)
[2018-09-28 12:49] LABS: ALB/GLOB RATIO 1.2 (1.0-2.1); ALBUMIN 3.8 g/dL (3.5-5.0); ALT/SGPT 18 U/L (9-52); AST/SGOT 20 U/L (14-36); BLOOD UREA NITROGEN 12 mg/dL (7-17); CALCIUM 9.1 mg/dl (8.6-10.4); GFR NON-AFRICAN AMERICAN > 60; HDL CHOLESTEROL 47 mg/dL (30-70)
[2018-09-28 12:59] LABS: LDL CHOLESTEROL 86 mg/dL (0-129)
[2018-09-28 13:03] LABS: PROLACTIN 31.2 ng/mL (3.0-18.9)
[2018-09-28] MEDS: Sodium Chloride 0.9% 1,000 ML IV SCH (14:16)
--- NOTE | 2018-09-28 17:21 | CON ---
DATE: 09/28/2018 ATTENDING PHYSICIAN: Jessie Melton DO Room #: 556, bed 3. REASON FOR CONSULTATION: Recurrent seizures. CHIEF COMPLAINT: The patient was brought into [facility] with a history of witnessed seizure activities at home. From neurological point of view, I was called in to evaluate her for further management. HISTORY OF PRESENT ILLNESS: Ms. Christine Church is a 48-year-old markedly obese right-handed female who is known to me for many years being treated for her so-called seizures, migraines and sleep apnea versus obesity hypoventilation syndrome. Recently she was seen by me 2 weeks ago. Seizure has been stable with her current medication. However, the seizure has been recurrent with unknown triggers, probably stress versus sleep deprivation. Most of the seizures not related to witnessed fall. No tonic-clonic activities, bowel and bladder incontinence associating with bitten tongue. All seizures have been witnessed. Most of the seizures have been pseudo. At present the patient seems to be lethargic from medication. PAST MEDICAL HISTORY: Seizures, migraine, sleep apnea, arthritis, hypertension, asthma. SURGICAL HISTORY: Status post cholecystectomy, left knee surgery, bariatric surgery in 2016. FAMILY HISTORY: Documented as per H and P. PERSONAL HISTORY: Denies smoking or alcohol use. ALLERGIES: ALLERGIC TO ACETAMINOPHEN, MORPHINE AND OXYCODONE. PHYSICAL EXAMINATION: VITAL SIGNS: Blood pressure 91/61, mean arterial pressure of 71, respiratory rate 18, temperature 98.1 with a pulse rate of 78. NECK: Supple. No carotid bruits. HEART: Sounds regular. CHEST: Fair air entry. EXTREMITIES: No edema in legs. NEUROLOGIC: MENTAL STATUS EXAM: She is awake, alert and oriented to person, place and time. She seems to be lethargic. Speech output is hypophonic with interrupted speech, not dysarthric. CRANIAL NERVE EXAM: Visual field intact, reactive to light. Extraocular movement normal. No nystagmus. No facial sensory deficit. No facial asymmetry. Hearing is normal. Tongue is midline. Good gag. MOTOR EXAM; On an outstretched hand with eyes closed, no drift noted. Subjective weakness in both upper and lower extremities. Deep tendon reflexes are absent. Plantars are downgoing. Sensory examination grossly intact. Coordination: Finger-nose test is intact. LABORATORY WORKUP: WBC 7.3, hemoglobin 12.2, hematocrit 38.1, platelet 257. ABG on room air, pH 7.36, pO2 107, pCO2 31, bicarbonate 19.5. Oxygen saturation is 98.2%. Sodium 139, potassium 3.6, chloride 110, bicarbonate 18, BUN 0.7, GFR more than 60, glucose of 91, magnesium 2, phosphorus 3.8, calcium 9.2, B12 357, hCG 2.39. CONCLUSION: Ms. 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 On the current examination, the patient does show letharginess probably secondary to her medication. RECOMMENDATIONS: 1. Continue Topamax 200 mg twice a day. 2. Hydration. 3. Keep her on BiPap. 4. No further workup is necessary. The patient should be kept seizure precaution. If she is stable for next 24 hour period, the patient can be discharged and should have followup visit with me as outpatient. Hilario Kimble MD
--- NOTE | 2018-09-28 17:55 | CP.PCM.CON ---
History of Present Illness - History of Present Illness History of Present Illness: reason for consultation: obstructive sleep apnea 48-year-old female with history of obstructive sleep apnea, hypertension, arthritis, asthma presented to emergency room for breakthrough seizures. Patient has history of obstructive sleep apnea and uses CPAP at night. Denies shortness of breath, denies cough, denies fever chills, denies chest pain. PMHx: seizures, migraines, sleep apnea, arthritis, HTN, and asthma SurgHx: Cholecystectomy 2001; Left knee surgery w/Dr. Brown 04/2017; Bariatric surgery 2015. FamHx: Sister- [place] (); Sister- Breast cancer, asthma (); Brother- Meningitis (), Brother- Cirrhosis () SocHx: Denies tobacco, alcohol, and drug use; lives with two children in [facility] unemployed (disability) Allergies: NKDA Review of Systems - Review of Systems All systems: reviewed and no additional remarkable complaints except (Nocturnal snoring and sleepy during daytime) Past Patient History - Infectious Disease Hx of Infectious Diseases: None - Past Medical History & Family History Past Medical History?: Yes - Past Social History Smoking Status: Never Smoked Chewing Tobacco Use: No Cigar Use: No Alcohol: None Drugs: Denies Home Situation {Lives}: With Family - CARDIAC Hx Hypertension: Yes - PULMONARY Hx Asthma: Yes Hx Sleep Apnea: Yes - NEUROLOGICAL Hx Migraine: Yes Hx Seizures: Yes - HEENT Other/Comment: SLEEPAPNEA & NARCOLEPSY - RENAL Hx Chronic Kidney Disease: No - ENDOCRINE/METABOLIC Hx Endocrine Disorders: No - HEMATOLOGICAL/ONCOLOGICAL Hx Blood Disorders: No - INTEGUMENTARY Hx Dermatological Problems: Yes Hx Eczema: Yes - MUSCULOSKELETAL/RHEUMATOLOGICAL Hx Arthritis: Yes - GASTROINTESTINAL Hx Gall Bladder Disease: Yes - GENITOURINARY/GYNECOLOGICAL Hx Genitourinary Disorders: No - PSYCHIATRIC Hx Substance Use: No - SURGICAL HISTORY Hx Cholecystectomy: Yes - ANESTHESIA Hx Anesthesia: Yes Hx Anesthesia Reactions: Yes (Nausea) Hx Malignant Hyperthermia: No Meds Allergies/Adverse Reactions: Allergies Allergy/AdvReac Type Severity Reaction Status Date / Time acetaminophen [From Percocet] Allergy Verified 09/27/18 11:31 morphine Allergy Verified 09/27/18 11:31 oxycodone [From Percocet] Allergy Verified 09/27/18 11:31 - Medications Medications: Current Medications Albuterol/Ipratropium (Duoneb 3 Mg/0.5 Mg (3 Ml) Ud) 3 ml INH RQ6 PRN PRN Reason: Shortness of Breath Amlodipine Besylate (Norvasc) 10 mg PO DAILY [facility] Last Admin: 09/28/18 09:39 Dose: 10 mg Enoxaparin Sodium (Lovenox) 40 mg SC DAILY [facility] Last Admin: 09/28/18 09:38 Dose: 40 mg Sodium Chloride (Sodium Chloride 0.9%) 1,000 mls @ 100 mls/hr IV .Q10H [facility] Last Admin: 09/28/18 14:16 Dose: 100 mls/hr Topiramate (Topamax) 200 mg PO BID [facility] Last Admin: 09/28/18 09:39 Dose: 200 mg Physical Exam - Head Exam Head Exam: ATRAUMATIC, NORMOCEPHALIC - ENT Exam ENT Exam: Mucous Membranes Moist - Respiratory Exam Respiratory Exam: Clear to Auscultation Bilateral - Cardiovascular Exam Cardiovascular Exam: REGULAR RHYTHM - GI/Abdominal Exam GI & Abdominal Exam: Normal Bowel Sounds, Soft - Extremities Exam Extremities exam: Positive for: normal inspection - Neurological Exam Neurological exam: Alert, Oriented x3 Results - Vital Signs Recent Vital Signs: Last Vital Signs Temp 97.2 F L 09/28/18 08:00 Pulse 83 09/28/18 15:45 Resp 20 09/28/18 08:00 BP 104/73 09/28/18 08:00 Pulse Ox 100 09/28/18 16:00 - Labs Result Diagrams: 09/28/18 12:29 09/28/18 12:29 Labs: Laboratory Results - last 24 hr 09/27/18 09/27/18 09/27/18 17:57 19:51 19:51 WBC RBC Hgb Hct MCV MCH MCHC RDW Plt Count MPV Neut % (Auto) Lymph % (Auto) [place] % (Auto) Eos % (Auto) Baso % (Auto) Neut # (Auto) Lymph # (Auto) [place] # (Auto) Eos # (Auto) Baso # (Auto) Puncture Site Rra pCO2 31 L pO2 130 H HCO3 20.4 L ABG pH 7.38 ABG Total CO2 19.3 L ABG O2 Saturation 98.8 H ABG Base Excess -5.8 L ABG Hemoglobin 12.0 ABG Carboxyhemoglobin 1.2 POC ABG HHb (Measured) 1.2 ABG Methemoglobin 1.2 Anatoliy Test Na A-a O2 Difference 67.0 Respiratory Index 0.5 Hgb O2 Saturation 96.4 Liter Flow FiO2 33.0 Sodium Potassium Chloride Carbon Dioxide Anion Gap BUN Creatinine Est GFR ( Amer) Est GFR (Non-Af Amer) POC Glucose (mg/dL) Random Glucose Hemoglobin A1c Calcium Phosphorus Magnesium Total Bilirubin AST ALT Alkaline Phosphatase Total Creatine Kinase 163 H Total Protein Albumin Globulin Albumin/Globulin Ratio Triglycerides Cholesterol LDL Cholesterol Direct HDL Cholesterol Vitamin B12 357 Folate 6.3 Free T4 TSH 3rd Generation Prolactin Phenytoin < 3.0 L 09/27/18 09/28/18 09/28/18 21:10 06:25 06:48 WBC RBC Hgb Hct MCV MCH MCHC RDW Plt Count MPV Neut % (Auto) Lymph % (Auto) [place] % (Auto) Eos % (Auto) Baso % (Auto) Neut # (Auto) Lymph # (Auto) [place] # (Auto) Eos # (Auto) Baso # (Auto) Puncture Site R rad pCO2 31 L pO2 107 H HCO3 19.5 L ABG pH 7.36 ABG Total CO2 18.5 L ABG O2 Saturation 98.2 H ABG Base Excess -6.9 L ABG Hemoglobin 11.4 L ABG Carboxyhemoglobin 1.3 POC ABG HHb (Measured) 1.8 ABG Methemoglobin 0.7 Anatoliy Test Pos A-a O2 Difference Respiratory Index Hgb O2 Saturation 96.2 Liter Flow 2.0 FiO2 Sodium Potassium Chloride Carbon Dioxide Anion Gap BUN Creatinine Est GFR ( Amer) Est GFR (Non-Af Amer) POC Glucose (mg/dL) 110 91 Random Glucose Hemoglobin A1c Calcium Phosphorus Magnesium Total Bilirubin AST ALT Alkaline Phosphatase Total Creatine Kinase Total Protein Albumin Globulin Albumin/Globulin Ratio Triglycerides Cholesterol LDL Cholesterol Direct HDL Cholesterol Vitamin B12 Folate Free T4 TSH 3rd Generation Prolactin Phenytoin 09/28/18 09/28/18 09/28/18 12:29 12:29 12:29 WBC 6.0 RBC 4.69 Hgb 12.0 Hct 37.7 MCV 80.3 L MCH 25.5 L MCHC 31.8 L RDW 16.1 H Plt Count 259 MPV 9.3 Neut % (Auto) 63.4 Lymph % (Auto) 24.5 [place] % (Auto) 9.1 Eos % (Auto) 2.1 Baso % (Auto) 0.9 Neut # (Auto) 3.8 Lymph # (Auto) 1.5 [place] # (Auto) 0.5 Eos # (Auto) 0.1 Baso # (Auto) 0.1 Puncture Site pCO2 pO2 HCO3 ABG pH ABG Total CO2 ABG O2 Saturation ABG Base Excess ABG Hemoglobin ABG Carboxyhemoglobin POC ABG HHb (Measured) ABG Methemoglobin Anatoliy Test A-a O2 Difference Respiratory Index Hgb O2 Saturation Liter Flow FiO2 Sodium 141 Potassium 3.9 Chloride 113 H Carbon Dioxide 21 L Anion Gap 11 BUN 12 Creatinine 0.8 Est GFR ( Amer) > 60 Est GFR (Non-Af Amer) > 60 POC Glucose (mg/dL) Random Glucose 90 Hemoglobin A1c 6.0 Calcium 9.1 Phosphorus 3.5 Magnesium 2.0 Total Bilirubin 0.4 AST 20 ALT 18 Alkaline Phosphatase 51 Total Creatine Kinase Total Protein 7.0 Albumin 3.8 Globulin 3.2 Albumin/Globulin Ratio 1.2 Triglycerides 54 D Cholesterol 148 LDL Cholesterol Direct 86 HDL Cholesterol 47 Vitamin B12 Folate Free T4 TSH 3rd Generation 1.47 Prolactin 31.2 H Phenytoin 09/28/18 09/28/18 12:29 17:00 WBC RBC Hgb Hct MCV MCH MCHC RDW Plt Count MPV Neut % (Auto) Lymph % (Auto) [place] % (Auto) Eos % (Auto) Baso % (Auto) Neut # (Auto) Lymph # (Auto) [place] # (Auto) Eos # (Auto) Baso # (Auto) Puncture Site pCO2 pO2 HCO3 ABG pH ABG Total CO2 ABG O2 Saturation ABG Base Excess ABG Hemoglobin ABG Carboxyhemoglobin POC ABG HHb (Measured) ABG Methemoglobin Anatoliy Test A-a O2 Difference Respiratory Index Hgb O2 Saturation Liter Flow FiO2 Sodium Potassium Chloride Carbon Dioxide Anion Gap BUN Creatinine Est GFR ( Amer) Est GFR (Non-Af Amer) POC Glucose (mg/dL) 112 H Random Glucose Hemoglobin A1c Calcium Phosphorus Magnesium Total Bilirubin AST ALT Alkaline Phosphatase Total Creatine Kinase Total Protein Albumin Globulin Albumin/Globulin Ratio Triglycerides Cholesterol LDL Cholesterol Direct HDL Cholesterol Vitamin B12 Folate Free T4 0.87 TSH 3rd Generation Prolactin Phenytoin Assessment & Plan (1) BRETT (obstructive sleep apnea) Assessment and Plan: Patient states that she recently had repeat sleep study done at her neurologist office CPAP at night Status: Acute (2) Recurrent seizures Status: Acute (3) Asthma Assessment and Plan: Nebulizer treatment as needed Asthma under control Status: Acute
[2018-09-29] MEDS: Sodium Chloride 0.9% 1,000 ML IV SCH ×2 (04:34→09:42)
[2018-09-29 08:31] VITALS: BP 95/60; PULSE 66; TEMP 98.9
[2018-09-29] MEDS: Enoxaparin 40 mg Syringe SC SCH (09:43)
--- NOTE | 2018-09-29 09:44 | CP.PCM.DIS ---
<Travis Chowdhury - Last Filed: 09/29/18 13:08> Provider - Provider Date of Admission: 09/27/18 14:03 Attending physician: Delio Hsieh MD Consults: 09/27/18 16:52 Physician Consult Routine Comment: Consulting Provider: Hilario Kimble Consulting Physician: Hilario Kimble Reason for Consult: seizure disorder with break through seizure 09/27/18 18:02 Physician Consult Routine Comment: Consulting Provider: Gordon Hardy Consulting Physician: Gordon Hardy Reason for Consult: BRETT Time Spent in preparation of Discharge (in minutes): 40 Diagnosis - Discharge Diagnosis (1) BRETT (obstructive sleep apnea) Status: Acute (2) Recurrent seizures Status: Acute Hospital Course - Lab Results Lab Results: Micro Results 09/27/18 14:46 Urine Random Urine Culture - Final No Growth (<1,000 CFU/ML) Most Recent Lab Values WBC 6.0 K/uL (4.8-10.8) 09/28/18 12:29 RBC 4.69 Mil/uL (3.80-5.20) 09/28/18 12:29 Hgb 12.0 g/dL (11.0-16.0) 09/28/18 12:29 Hct 37.7 % (34.0-47.0) 09/28/18 12:29 MCV 80.3 fL (81.0-99.0) L 09/28/18 12:29 MCH 25.5 pg (27.0-31.0) L 09/28/18 12:29 MCHC 31.8 g/dL (33.0-37.0) L 09/28/18 12:29 RDW 16.1 % (11.5-14.5) H 09/28/18 12:29 Plt Count 259 K/uL (130-400) 09/28/18 12:29 MPV 9.3 fL (7.2-11.7) 09/28/18 12:29 Neut % (Auto) 63.4 % (50.0-75.0) 09/28/18 12:29 Lymph % (Auto) 24.5 % (20.0-40.0) 09/28/18 12:29 [place] % (Auto) 9.1 % (0.0-10.0) 09/28/18 12: Eos % (Auto) 2.1 % (0.0-4.0) 09/28/18 12: Baso % (Auto) 0.9 % (0.0-2.0) 09/28/18 12: Neut # (Auto) 3.8 K/uL (1.8-7.0) 09/28/18 12: Lymph # (Auto) 1.5 K/uL (1.0-4.3) 09/28/18 12: [place] # (Auto) 0.5 K/uL (0.0-0.8) 09/28/18 12: Eos # (Auto) 0.1 K/uL (0.0-0.7) 09/28/18 12: Baso # (Auto) 0.1 K/uL (0.0-0.2) 09/28/18 12:29 Puncture Site R rad 09/28/18 06:48 pCO2 31 mm/Hg (35-45) L 09/28/18 06:48 pO2 107 mm/Hg (80-100) H 09/28/18 06:48 HCO3 19.5 mmol/L (21-28) L 09/28/18 06:48 ABG pH 7.36 (7.35-7.45) 09/28/18 06:48 ABG Total CO2 18.5 mmol/L (22-28) L 09/28/18 06:48 ABG O2 Saturation 98.2 % (95-98) H 09/28/18 06:48 ABG Base Excess -6.9 mmol/L (-2.0-3.0) L 09/28/18 06:48 ABG Hemoglobin 11.4 g/dL (11.7-17.4) L 09/28/18 06:48 ABG Carboxyhemoglobin 1.3 % (0.5-1.5) 09/28/18 06:48 POC ABG HHb (Measured) 1.8 % (0.0-5.0) 09/28/18 06:48 ABG Methemoglobin 0.7 % (0.0-3.0) 09/28/18 06:48 Anatoliy Test Pos 09/28/18 06:48 A-a O2 Difference 67.0 mm/Hg 09/27/18 17:57 Respiratory Index 0.5 09/27/18 17:57 Hgb O2 Saturation 96.2 % (95.0-98.0) 09/28/18 06:48 Liter Flow 2.0 09/28/18 06:48 FiO2 33.0 % 09/27/18 17:57 Sodium 141 mmol/L (132-148) 09/28/18 12:29 Potassium 3.9 mmol/L (3.6-5.2) 09/28/18 12:29 Chloride 113 mmol/L (98-107) H 09/28/18 12:29 Carbon Dioxide 21 mmol/L (22-30) L 09/28/18 12:29 Anion Gap 11 (10-20) 09/28/18 12:29 BUN 12 mg/dL (7-17) 09/28/18 12:29 Creatinine 0.8 mg/dL (0.7-1.2) 09/28/18 12:29 Est GFR ( Amer) > 60 09/28/18 12:29 Est GFR (Non-Af Amer) > 60 09/28/18 12:29 POC Glucose (mg/dL) 94 mg/dL (65-110) 09/29/18 06:19 Random Glucose 90 mg/dL (65-105) 09/28/18 12:29 Hemoglobin A1c 6.0 % (4.2-6.5) 09/28/18 12:29 Calcium 9.1 mg/dl (8.6-10.4) 09/28/18 12:29 Phosphorus 3.5 mg/dL (2.5-4.5) 09/28/18 12:29 Magnesium 2.0 mg/dL (1.6-2.3) 09/28/18 12:29 Total Bilirubin 0.4 mg/dL (0.2-1.3) 09/28/18 12:29 AST 20 U/L (14-36) 09/28/18 12:29 ALT 18 U/L (9-52) 09/28/18 12:29 Alkaline Phosphatase 51 U/L (38-126) 09/28/18 12:29 Total Creatine Kinase 163 U/L (30-135) H 09/27/18 19:51 Total Protein 7.0 g/dL (6.3-8.3) 09/28/18 12:29 Albumin 3.8 g/dL (3.5-5.0) 09/28/18 12:29 Globulin 3.2 gm/dL (2.2-3.9) 09/28/18 12:29 Albumin/Globulin Ratio 1.2 (1.0-2.1) 09/28/18 12:29 Triglycerides 54 mg/dL (0-149) D 09/28/18 12:29 Cholesterol 148 mg/dL (0-199) 09/28/18 12:29 LDL Cholesterol Direct 86 mg/dL (0-129) 09/28/18 12:29 HDL Cholesterol 47 mg/dL (30-70) 09/28/18 12:29 Vitamin B12 357 pg/mL (239-931) 09/27/18 19:51 Folate 6.3 ng/mL 09/27/18 19:51 Free T4 0.87 ng/dL (0.78-2.19) 09/28/18 12:29 TSH 3rd Generation 1.47 mIU/L (0.46-4.68) 09/28/18 12:29 Prolactin 31.2 ng/mL (3.0-18.9) H 09/28/18 12:29 Beta HCG, Quant < 2.39 mIU/ML 09/27/18 12:40 Urine Color Yellow (YELLOW) 09/27/18 14:46 Urine Clarity Hazy (Clear) 09/27/18 14:46 Urine pH 6.0 (5.0-8.0) 09/27/18 14:46 Ur Specific [place] 1.021 (1.003-1.030) 09/27/18 14:46 Urine Protein Negative mg/dL (NEGATIVE) 09/27/18 14:46 Urine Glucose (UA) Normal mg/dL (Normal) 09/27/18 14:46 Urine Ketones Negative mg/dL (NEGATIVE) 09/27/18 14:46 Urine Blood Negative (NEGATIVE) 09/27/18 14:46 Urine Nitrate Negative (NEGATIVE) 09/27/18 14:46 Urine Bilirubin Negative (NEGATIVE) 09/27/18 14:46 Urine Urobilinogen 2.0 mg/dL (0.2-1.0) H 09/27/18 14:46 Ur Leukocyte Esterase 2+ Cynthia/uL (Negative) H 09/27/18 14:46 Urine WBC (Auto) 26 /hpf (0-5) H 09/27/18 14:46 Urine RBC (Auto) 2 /hpf (0-3) 09/27/18 14:46 Ur Squamous Epith Cells 2 /hpf (0-5) 09/27/18 14:46 Urine Opiates Screen Negative (NEGATIVE) 09/27/18 14:46 Urine Methadone Screen Negative (NEGATIVE) 09/27/18 14:46 Ur Barbiturates Screen Negative (NEGATIVE) 09/27/18 14:46 Phenytoin < 3.0 ug/mL (10-20) L 09/27/18 19:51 Ur Phencyclidine Scrn Negative (NEGATIVE) 09/27/18 14:46 Ur Amphetamines Screen Negative (NEGATIVE) 09/27/18 14:46 U Benzodiazepines Scrn Positive (NEGATIVE) 09/27/18 14:46 U Oth Cocaine Metabols Negative (NEGATIVE) 09/27/18 14:46 U Cannabinoids Screen Negative (NEGATIVE) 09/27/18 14:46 - Hospital Course Hospital Course: HPI: 48 year old female with past medical history of epilepsy, migraines, sleep apnea, HTN, obesity, arthiritis, asthma presented to hospital for break through seizures. Patient brought to hospital by EMS and given 4 mg IV ativan en route for seizures. In ED, patient received another 2 mg IV of Ativan. At time of exam, pt was stil lethargic 2/2 medication side effect but able to answer que stions. Per ED note, pt had about 15 seizures en route to ED. Patient states that she is compliant with her medications. In ED, CT of head is negative. She states she followed with her neurologist, Dr. Kimble last week and was told to get a sleep study for BRETT. Patient also states that she fell and landed on her left hip a few days ago. Currently, pt is lethargic 2/2 medications but is able to answer questions and follow commands. Patient denies having CP, SOB, abd pain, N/V/D/C, F/C. Patient c/o left hip pain on palpation. Also complains of headache. The following is a summary of hospital course. For full detail, please refer to EMR: Seizure disorder -CT head w/o contrast: no acute intracranial pathology evident. No chronic changes noted. -CPK: 163 -TSH, free T4 -Folate, Vitamin B12 levels wnl -Neurology (Dr. Kimble) consulted -concern for pseudoseizures -f/u 1 hr EEG -Topiramate 200 mg PO BID -fall precautions, seizure precautions, neurochecks Sleep apnea -ABG negative for hypercapneic hypoxia -Pulmonology (Dr. Hardy) consulted Obesity -Pt has hx of bariatric surgery -vitamin B12, folate WNL -c/w daily multivitamin -A1c -lipid panel -TSH and free T4 Hx of fall -Pt reports falling on left hip with some bruising -CXR (09/27): no acute findings -XR hip w/ pelvis b/l: moderate narrowing of b/l hip joint with subchondral sclerosis and osteophytosis. Degenerative changes greater than expected for patient's age. If pain persist, consider correlation with MRI Hx of HTN -Norvasc 10 mg PO daily Hx of asthma -duonebs 3q6 prn -O2 via NC prn PPx, Diet, Disposition -DVT ppx: scds, lovenox 40 mg SC daily -GI ppx: not indicated at this time -Diet: heart healthy diet On discharge: Patient is medically stable for discharge to home, as per Dr. Johnson. Patient has been instructed to take Topamax as currently prescribed for control of seizures: Topamax 200 mg PO tablet, twice daily Patient is instructed to follow up with her primary care physician (Dr. Lamb) and Neurologist (Dr. Kimble) within 1 week of discharge for further monitoring and continued care. Patient inquired about possibly seeing a new Neurologist. Referral information for Dr. Elvira Gusman to be given at discharge. Per Neurology instructions, patient's breakthrough seizures are likely triggered from stress versus sleep deprivation. Patient has known history of sleep apnea and states she has had recent outpatient sleep study performed. Patient has been instructed to remain on BiPap machine. If symptoms worsen or recur, please return to ED immediately. - Date & Time of H&P Date of H&P: 09/29/18 Time of H&P: 13:05 Discharge Exam - Head Exam Head Exam: ATRAUMATIC, NORMAL INSPECTION, NORMOCEPHALIC - Eye Exam Eye Exam: EOMI, Normal appearance, PERRL Pupil Exam: NORMAL ACCOMODATION - ENT Exam ENT Exam: Mucous Membranes Moist, Normal Exam - Neck Exam Neck exam: Full Rom, Normal Inspection - Respiratory Exam Respiratory Exam: Clear to PA & Lateral, NORMAL BREATHING PATTERN, UNREMARKABLE. absent: Accessory Muscle Use, Rales, Rhonchi, Wheezes, Respiratory Distress, Stridor - Cardiovascular Exam Cardiovascular Exam: REGULAR RHYTHM, +S1, +S2 - GI/Abdominal Exam GI & Abdominal Exam: Normal Bowel Sounds, Soft, Unremarkable. absent: Distended, Firm, Guarding, Rebound, Rigid, Tenderness - Extremities Exam Extremities exam: normal capillary refill, normal inspection, pedal pulses present - Back Exam Back exam: NORMAL INSPECTION - Neurological Exam Neurological exam: Alert, CN II-XII Intact, Normal Gait, Oriented x3 - Skin Skin Exam: Dry, Intact, Normal Color, Warm Discharge Plan - Discharge Medications Prescriptions: Topiramate [Topamax] 200 mg PO BID #60 tab - Follow Up Plan Condition: FAIR Disposition: HOME/ ROUTINE Instructions: Seizures, Adult (DC), Obstructive Sleep Apnea, Adult (DC), Topiramate Additional Instructions: Patient is medically stable for discharge to home, as per Dr. Johnson. Patient has been instructed to take Topamax as currently prescribed for control of seizures: Topamax 200 mg PO tablet, twice daily Patient is instructed to follow up with her primary care physician (Dr. Lamb) and Neurologist (Dr. Kimble) within 1 week of discharge for further monitoring and continued care. Patient inquired about possibly seeing a new Neurologist. Referral information for Dr. Elvira Gusman to be given at discharge. Per Neurology instructions, patient's breakthrough seizures are likely triggered from stress versus sleep deprivation. Patient has known history of sleep apnea and states she has had recent outpatient sleep study performed. Patient has been instructed to remain on BiPap machine. If symptoms worsen or recur, please return to ED immediately. Referrals: Gordon Hardy MD [Staff Provider] - Maximilian Zapata MD [Staff Provider] - Elvira Gusman MD [Staff Provider] - Clarisse Lamb MD [Staff Provider] - <Baldomero Johnson - Last Filed: 09/29/18 16:22> Provider - Provider Date of Admission: 09/27/18 14:03 Attending physician: Delio Hsieh MD Consults: 09/27/18 16:52 Physician Consult Routine Comment: Consulting Provider: Hilario Kimble Consulting Physician: Hilario Kimble Reason for Consult: seizure disorder with break through seizure 09/27/18 18:02 Physician Consult Routine Comment: Consulting Provider: Gordon Hardy Consulting Physician: Gordon Hardy Reason for Consult: BRETT Hospital Course - Lab Results Lab Results: Micro Results 09/27/18 14:46 Urine Random Urine Culture - Final No Growth (<1,000 CFU/ML) Most Recent Lab Values WBC 6.0 K/uL (4.8-10.8) 09/28/18 12: RBC 4.69 Mil/uL (3.80-5.20) 09/28/18 12: Hgb 12.0 g/dL (11.0-16.0) 09/28/18 12: Hct 37.7 % (34.0-47.0) 09/28/18 12: MCV 80.3 fL (81.0-99.0) L 09/28/18 12:29 MCH 25.5 pg (27.0-31.0) L 09/28/18 12: MCHC 31.8 g/dL (33.0-37.0) L 09/28/18 12: RDW 16.1 % (11.5-14.5) H 09/28/18 12:29 Plt Count 259 K/uL (130-400) 09/28/18 12:29 MPV 9.3 fL (7.2-11.7) 09/28/18 12: Neut % (Auto) 63.4 % (50.0-75.0) 09/28/18 12: Lymph % (Auto) 24.5 % (20.0-40.0) 09/28/18 12: [place] % (Auto) 9.1 % (0.0-10.0) 09/28/18 12: Eos % (Auto) 2.1 % (0.0-4.0) 09/28/18 12: Baso % (Auto) 0.9 % (0.0-2.0) 09/28/18 12:29 Neut # (Auto) 3.8 K/uL (1.8-7.0) 09/28/18 12:29 Lymph # (Auto) 1.5 K/uL (1.0-4.3) 09/28/18 12:29 [place] # (Auto) 0.5 K/uL (0.0-0.8) 09/28/18 12:29 Eos # (Auto) 0.1 K/uL (0.0-0.7) 09/28/18 12:29 Baso # (Auto) 0.1 K/uL (0.0-0.2) 09/28/18 12:29 Puncture Site R rad 09/28/18 06:48 pCO2 31 mm/Hg (35-45) L 09/28/18 06:48 pO2 107 mm/Hg (80-100) H 09/28/18 06:48 HCO3 19.5 mmol/L (21-28) L 09/28/18 06:48 ABG pH 7.36 (7.35-7.45) 09/28/18 06:48 ABG Total CO2 18.5 mmol/L (22-28) L 09/28/18 06:48 ABG O2 Saturation 98.2 % (95-98) H 09/28/18 06:48 ABG Base Excess -6.9 mmol/L (-2.0-3.0) L 09/28/18 06:48 ABG Hemoglobin 11.4 g/dL (11.7-17.4) L 09/28/18 06:48 ABG Carboxyhemoglobin 1.3 % (0.5-1.5) 09/28/18 06:48 POC ABG HHb (Measured) 1.8 % (0.0-5.0) 09/28/18 06:48 ABG Methemoglobin 0.7 % (0.0-3.0) 09/28/18 06:48 Anatoliy Test Pos 09/28/18 06:48 A-a O2 Difference 67.0 mm/Hg 09/27/18 17:57 Respiratory Index 0.5 09/27/18 17:57 Hgb O2 Saturation 96.2 % (95.0-98.0) 09/28/18 06:48 Liter Flow 2.0 09/28/18 06:48 FiO2 33.0 % 09/27/18 17:57 Sodium 141 mmol/L (132-148) 09/28/18 12:29 Potassium 3.9 mmol/L (3.6-5.2) 09/28/18 12:29 Chloride 113 mmol/L (98-107) H 09/28/18 12:29 Carbon Dioxide 21 mmol/L (22-30) L 09/28/18 12:29 Anion Gap 11 (10-20) 09/28/18 12:29 BUN 12 mg/dL (7-17) 09/28/18 12:29 Creatinine 0.8 mg/dL (0.7-1.2) 09/28/18 12:29 Est GFR ( Amer) > 60 09/28/18 12:29 Est GFR (Non-Af Amer) > 60 09/28/18 12:29 POC Glucose (mg/dL) 96 mg/dL (65-110) 09/29/18 11:35 Random Glucose 90 mg/dL (65-105) 09/28/18 12:29 Hemoglobin A1c 6.0 % (4.2-6.5) 09/28/18 12:29 Calcium 9.1 mg/dl (8.6-10.4) 09/28/18 12:29 Phosphorus 3.5 mg/dL (2.5-4.5) 09/28/18 12:29 Magnesium 2.0 mg/dL (1.6-2.3) 09/28/18 12:29 Total Bilirubin 0.4 mg/dL (0.2-1.3) 09/28/18 12:29 AST 20 U/L (14-36) 09/28/18 12:29 ALT 18 U/L (9-52) 09/28/18 12:29 Alkaline Phosphatase 51 U/L (38-126) 09/28/18 12:29 Total Creatine Kinase 163 U/L (30-135) H 09/27/18 19:51 Total Protein 7.0 g/dL (6.3-8.3) 09/28/18 12:29 Albumin 3.8 g/dL (3.5-5.0) 09/28/18 12:29 Globulin 3.2 gm/dL (2.2-3.9) 09/28/18 12:29 Albumin/Globulin Ratio 1.2 (1.0-2.1) 09/28/18 12:29 Triglycerides 54 mg/dL (0-149) D 09/28/18 12:29 Cholesterol 148 mg/dL (0-199) 09/28/18 12:29 LDL Cholesterol Direct 86 mg/dL (0-129) 09/28/18 12:29 HDL Cholesterol 47 mg/dL (30-70) 09/28/18 12:29 Vitamin B12 357 pg/mL (239-931) 09/27/18 19:51 Folate 6.3 ng/mL 09/27/18 19:51 Free T4 0.87 ng/dL (0.78-2.19) 09/28/18 12:29 TSH 3rd Generation 1.47 mIU/L (0.46-4.68) 09/28/18 12:29 Prolactin 31.2 ng/mL (3.0-18.9) H 09/28/18 12:29 Beta HCG, Quant < 2.39 mIU/ML 09/27/18 12:40 Urine Color Yellow (YELLOW) 09/27/18 14:46 Urine Clarity Hazy (Clear) 09/27/18 14:46 Urine pH 6.0 (5.0-8.0) 09/27/18 14:46 Ur Specific [place] 1.021 (1.003-1.030) 09/27/18 14:46 Urine Protein Negative mg/dL (NEGATIVE) 09/27/18 14:46 Urine Glucose (UA) Normal mg/dL (Normal) 09/27/18 14:46 Urine Ketones Negative mg/dL (NEGATIVE) 09/27/18 14:46 Urine Blood Negative (NEGATIVE) 09/27/18 14:46 Urine Nitrate Negative (NEGATIVE) 09/27/18 14:46 Urine Bilirubin Negative (NEGATIVE) 09/27/18 14:46 Urine Urobilinogen 2.0 mg/dL (0.2-1.0) H 09/27/18 14:46 Ur Leukocyte Esterase 2+ Cynthia/uL (Negative) H 09/27/18 14:46 Urine WBC (Auto) 26 /hpf (0-5) H 09/27/18 14:46 Urine RBC (Auto) 2 /hpf (0-3) 09/27/18 14:46 Ur Squamous Epith Cells 2 /hpf (0-5) 09/27/18 14:46 Urine Opiates Screen Negative (NEGATIVE) 09/27/18 14:46 Urine Methadone Screen Negative (NEGATIVE) 09/27/18 14:46 Ur Barbiturates Screen Negative (NEGATIVE) 09/27/18 14:46 Phenytoin < 3.0 ug/mL (10-20) L 09/27/18 19:51 Ur Phencyclidine Scrn Negative (NEGATIVE) 09/27/18 14:46 Ur Amphetamines Screen Negative (NEGATIVE) 09/27/18 14:46 U Benzodiazepines Scrn Positive (NEGATIVE) 09/27/18 14:46 U Oth Cocaine Metabols Negative (NEGATIVE) 09/27/18 14:46 U Cannabinoids Screen Negative (NEGATIVE) 09/27/18 14:46 Attending/Attestation - Attestation I have personally seen and examined this patient.: Yes I have fully participated in the care of the patient.: Yes I have reviewed all pertinent clinical information, including history, physical exam and plan: Yes Notes (Text): 09/29/18 16:17 Medical attending: Patient was seen and examined by me. Agree with the above note by the resident The patient was not in any acute distress, she has been ambulating slowly in the room. She was earlier seen by her neurologist. The patient is currently on topamax PO at this time. Patient is aware she should follow up with her primary physician and importantly to follow up with neurology. Baldomero Johnson
--- NOTE | 2018-09-29 10:09 | PN ---
DATE: 09/29/2018 TIME OF EVALUATION: 7:30 a.m. NEUROLOGICAL PROBLEM: Recurrent seizures. PHYSICAL EXAMINATION: VITAL SIGNS: Blood pressure 93/50, mean arterial pressure of 70, respiratory rate 18, temperature 97.6 with a pulse rate of 84. GENERAL: The patient is comfortably lying down in the bed with BiPAP. She feels very comfortable lying down. She slept good. Examination is unchanged. Electroencephalogram is being reviewed. No paroxysmal activities or focal slowing noted on either side. RECOMMENDATION: Continue the current Topamax dose and advised to follow up with me to set up her BiPAP machine as outpatient. If medically stable, the patient can be discharged and should have followup visit with me as outpatient. Hilario Kimble MD
--- NOTE | 2018-09-29 17:43 | EEG ---
DATE: 09/28/2018 ELECTROENCEPHALOGRAM REPORT INTERPRETATIONS: This is a 16-channel electroencephalogram of awake and drowsy adult. During the study, photic stimulation was performed. Hyperventilation was not performed. The resting electroencephalogram consists of 8-9 Hz alpha activities with low amplitude frequency noted at parietal and occipital leads. Anterior fast activity superimposed with 2 to 3 Hz delta activities seen at frontal and central leads. Some loose electrode artifact noted over the temporal leads, particularly on the right side. Some movement artifact contaminated the background rhythm intermittently. Photic stimulation did not evoke driving response noted at 2-20 Hz. IMPRESSION: This is a normal electroencephalogram of awake and drowsy adult. During the study, neither electroencephalographic paroxysmal activities nor focal slowing noted. Hilario Kimble MD
== END 2018-09-29 12:02 | disposition home or self-care (01) ==
LOC: C.ER 11:28 → C.9E 14:03 → C.5S 15:52
PROVIDERS: ADMIT Internal Medicine; ATTEND Internal Medicine
DX: G40.209 Localization-related (focal) (partial) symptomatic epilepsy and epileptic syndromes with complex partial seizures, not intractable, without status epilepticus (principal); G47.33 Obstructive sleep apnea (adult) (pediatric); G47.419 Narcolepsy without cataplexy; I10 Essential (primary) hypertension; J45.909 Unspecified asthma, uncomplicated; M17.12 Unilateral primary osteoarthritis, left knee
CPT/HCPCS: 36415; 70450; 71045; 73521; 80053; 80061; 80185; 80201; 80299; 81001; 82550; 82607; 82746; 82803; 82948; 83036; 83735; 84100; 84146; 84425; 84439; 84443; 84702; 85025; 87086; 93005; 94660; 95812; 96374; 97116; 97161; 97530; 99285; G0378; G0480; G8978; G8979; J1650; J2060; J7030

== ENCOUNTER 2018-10-06 15:03 | Emergency (ER) | payer MEDICARE, OTHER ==
[2018-10-06 15:03] VITALS: BMI 43.3
[2018-10-06 15:14] VITALS: RESP 18; TEMP 98.8
--- NOTE | 2018-10-06 15:23 | C.PDOC ---
History Of Present Illness 48-year-old female is brought to the ED by ambulance from workplace after having witnessed seizure activity prior to arrival. Patient reports she has a history of seizures since childhood. She states she is on multiple medications and has maintained good compliance. Patient is unclear of when she had her last seizure, states she had one this morning. Patient with questionable seizure yesterday. As per EMS, patient was given subcutaneous Valium in the field. Patient denies urinary/bowel incontinence. Time Seen by Provider: 10/06/18 15:22 Chief Complaint (Nursing): Seizure History Per: Patient, EMS History/Exam Limitations: no limitations Past Medical History Reviewed: Historical Data, Nursing Documentation, Vital Signs Vital Signs: Last Vital Signs Temp 98.8 F 10/06/18 15:08 Pulse 70 10/06/18 15:08 Resp 18 10/06/18 15:08 BP 134/80 10/06/18 15:08 Pulse Ox 100 10/06/18 15:08 Primary Care Provider: Clarisse Lamb Medical History PMH: Arthritis, Asthma, Fractures (RT.WRIST/ CASTED), Gall Bladder Disease, HTN, Migraine, Seizures, Sleep Apnea Denies: Chronic Kidney Disease Surgical History: Cholecystectomy, Endoscopy - [facility] Procedures EXCISION OF STOMACH, PERCUTANEOUS ENDOSCOPIC APPROACH, VERT (01/04/16) INSPECTION OF UPPER INTESTINAL TRACT, ENDO (01/04/16) Family History: States: Unknown Family Hx - Social History Hx Tobacco Use: No Hx Alcohol Use: No Hx Substance Use: No - Immunization History Hx Tetanus Toxoid Vaccination: No Hx Influenza Vaccination: No Hx Pneumococcal Vaccination: No Review Of Systems Genitourinary: Negative for: Incontinence Neurological: Positive for: Seizures Physical Exam - Physical Exam Appears: Non-toxic, No Acute Distress, Other (Obese black female ) Skin: Normal Color, Warm, Dry Head: Atraumatic, Normacephalic Eye(s): bilateral: Normal Inspection Oral Mucosa: Moist Neck: Supple Chest: Symmetrical, No Deformity, No Tenderness Cardiovascular: Rhythm Regular, No Murmur Respiratory: Normal Breath Sounds, No Rales, No Rhonchi, No Wheezing Gastrointestinal/Abdominal: Soft, No Tenderness, No Guarding, No Rebound Extremity: Normal ROM, Capillary Refill (less than 2 seconds ) Neurological/Psych: Oriented x3, No Normal Speech (stuttering ), Normal Cognition ED Course And Treatment O2 Sat by Pulse Oximetry: 100 (on RA) Pulse Ox Interpretation: Normal Progress Note: Bloodwork, urinalysis, CXR, EKG ordered and reviewed. Vimpat PO and Topamax PO given. Reevaluation Time: 17:43 Reassessment Condition: Unchanged - Physician Consult Information Outcome Of Conversation: 1730: d/w Dr. Kimble- pt's Neurologist- ok to defer repeat w/u and d/c home. Suggests increase Vimpat to 200 BID Medical Decision Making Medical Decision Making: typical seizures since infancy defer repeat w/u as pt had full w/u this month increase Vimpat to 200 BID Disposition Doctor Will See Patient In The: Office Counseled Patient/Family Regarding: Studies Performed, Diagnosis - Disposition Referrals: Hilario Kimble MD [Staff Provider] - Clarisse Lamb MD [Staff Provider] - Disposition: HOME/ ROUTINE Disposition Time: 17:44 Condition: GOOD Additional Instructions: increase Vimpat to 200 mg twice a day All other meds continue as previous. Call Dr. Kimble's office to make a follow-up appt Prescriptions: Lacosamide [Vimpat] 200 mg PO BID #60 tab Instructions: Epilepsy in Adults Forms: [facility] (Yakut) - Clinical Impression Clinical Impression: Tonic-clonic seizure - Scribe Statement The provider has reviewed the documentation as recorded by the Scribe (Fabby Saucedo) Provider Attestation: All medical record entries made by the Scribe were at my direction and personally dictated by me. I have reviewed the chart and agree that the record accurately reflects my personal performance of the history, physical exam, medical decision making, and the department course for this patient. I have also personally directed, reviewed, and agree with the discharge instructions and disposition.
[2018-10-06] MEDS ORDERED: Lacosamide 100 MG Tab PO STA (15:46)
[2018-10-06] MEDS ORDERED: Lacosamide 50 MG Tab PO ONE (16:00)
[2018-10-06 17:46] VITALS: BP 137/87; PULSE 75
[2018-10-06 19:42] VITALS: O2SAT 100
--- NOTE | 2018-10-08 01:07 | CARD ---
APPROVED REPORT Date of service: 10/06/2018 EKG Measurement Heart [id number] ID [id number] <Conclusion> Normal sinus rhythm Cannot rule out Anterior infarct, age undetermined Abnormal ECG
== END 2018-10-06 18:01 | disposition home or self-care (01) ==
LOC: C.ER 15:03
DX: G40.89 Other seizures (principal)